=== PATIENT | female | born 1985 | race Caucasian/White ===

== ENCOUNTER → 2019-05-03 | Outpatient (CLI) | payer SELFPAY | PROVIDERS: Family Provider Nurse Practitioner Family; Visit Provider Internal Medicine Hematology & Oncology | DX: Z85.830 Personal history of malignant neoplasm of bone (principal); Z96.652 Presence of left artificial knee joint | CPT/HCPCS: 73552; 73562; 78306; A9561 ==

== ENCOUNTER → 2019-07-06 15:41 | Outpatient (BNVA) | payer MEDICARE, SELFPAY | PROVIDERS: Family Provider Nurse Practitioner Family; Visit Provider Social Worker Clinical | DX: F43.12 Post-traumatic stress disorder, chronic (principal); F33.2 Major depressive disorder, recurrent severe without psychotic features; F41.1 Generalized anxiety disorder | CPT/HCPCS: 90834 ==

== ENCOUNTER → 2019-07-07 12:37 | Outpatient (BNVA) | payer MEDICARE, SELFPAY | PROVIDERS: Family Provider Nurse Practitioner Family; Visit Provider Psychiatry & Neurology Psychiatry | DX: F43.12 Post-traumatic stress disorder, chronic (principal); F33.2 Major depressive disorder, recurrent severe without psychotic features; F41.1 Generalized anxiety disorder | CPT/HCPCS: 99213 ==

== ENCOUNTER → 2019-07-27 13:02 | Outpatient (BNVA) | payer MEDICARE, SELFPAY | PROVIDERS: Family Provider Nurse Practitioner Family; Visit Provider Social Worker Clinical | DX: F43.12 Post-traumatic stress disorder, chronic (principal); F33.2 Major depressive disorder, recurrent severe without psychotic features; F41.1 Generalized anxiety disorder | CPT/HCPCS: 90834 ==

== ENCOUNTER → 2019-08-11 14:55 | Outpatient (BNVA) | payer MEDICARE, SELFPAY | PROVIDERS: Family Provider Nurse Practitioner Family; Visit Provider Social Worker Clinical | DX: F43.12 Post-traumatic stress disorder, chronic (principal); F33.2 Major depressive disorder, recurrent severe without psychotic features; F41.1 Generalized anxiety disorder | CPT/HCPCS: 90834 ==

== ENCOUNTER → 2019-08-17 14:47 | Outpatient (BNVA) | payer MEDICARE, SELFPAY | PROVIDERS: Family Provider Nurse Practitioner Family; Visit Provider Social Worker Clinical | DX: F43.12 Post-traumatic stress disorder, chronic (principal); F33.2 Major depressive disorder, recurrent severe without psychotic features; F41.1 Generalized anxiety disorder; Z63.4 Disappearance and death of family member | CPT/HCPCS: 90834 ==

== ENCOUNTER → 2019-08-24 08:06 | Outpatient (BNVA) | payer MEDICARE, SELFPAY | PROVIDERS: Family Provider Nurse Practitioner Family; Visit Provider Social Worker Clinical | DX: F43.12 Post-traumatic stress disorder, chronic (principal); F33.2 Major depressive disorder, recurrent severe without psychotic features; F41.1 Generalized anxiety disorder; Z63.4 Disappearance and death of family member | CPT/HCPCS: 90834 ==

== ENCOUNTER → 2019-09-07 08:48 | Outpatient (BNVA) | payer MEDICARE, SELFPAY | PROVIDERS: Family Provider Nurse Practitioner Family; Visit Provider Social Worker Clinical | DX: F43.12 Post-traumatic stress disorder, chronic (principal); F33.2 Major depressive disorder, recurrent severe without psychotic features; F41.1 Generalized anxiety disorder; Z63.4 Disappearance and death of family member | CPT/HCPCS: 90834 ==

== ENCOUNTER → 2019-09-15 08:59 | Outpatient (BNVA) | payer MEDICARE, SELFPAY | PROVIDERS: Family Provider Nurse Practitioner Family; Visit Provider Social Worker Clinical | DX: F43.12 Post-traumatic stress disorder, chronic (principal); F33.2 Major depressive disorder, recurrent severe without psychotic features; F41.1 Generalized anxiety disorder; Z63.4 Disappearance and death of family member | CPT/HCPCS: 90834 ==

== ENCOUNTER → 2019-10-28 08:27 | Outpatient (BNVA) | payer MEDICARE, SELFPAY | PROVIDERS: Family Provider Nurse Practitioner Family; Visit Provider Psychiatry & Neurology Psychiatry | DX: F43.12 Post-traumatic stress disorder, chronic (principal); F33.2 Major depressive disorder, recurrent severe without psychotic features; F41.1 Generalized anxiety disorder | CPT/HCPCS: 99213 ==

== ENCOUNTER 2019-11-08 18:12 | Emergency (ER) | payer MEDICARE, SELFPAY ==
[2019-11-08 18:32] VITALS: BMI 47.2
[2019-11-08 18:34] VITALS: BP 129/78; PULSE 85; RESP 16; TEMP 36.8; O2SAT 97
--- NOTE | 2019-11-08 19:28 | ED_ITS ---
HPI - Skin/Abscess/Foreign Bdy General: Chief complaint: Skin/Abscess/Foreign Body Stated complaint: possible abcess on back head Time Seen by Provider: 11/08/19 19:21 History of Present Illness: HPI narrative: Patient is a 34-year-old female comes to the ED with possible abscess on back left region of the neck/head. Patient says she noticed it started about 6 days ago and appeared to be a small infected hair and it was a red bump. Says the last 4 days is gotten more painful tender red and warm. No active draining. No fevers, chills, nausea/vomiting. Patient does have a history of MRSA. Associated symptoms: Deny chills, fever(s), nausea or vomiting Review of Systems Const: Denies: fever(s), chills or fatigue Eyes: Denies: change in vision or eye discomfort ENMT: Denies: throat pain, odynophagia, nasal discharge or nasal congestion Card: Denies: chest pain, palpitations, edema, swelling of feet/ankles, dyspnea on exertion or orthopnea Resp: Denies: dyspnea, productive cough or non-productive cough GI: Denies: abdominal pain, nausea, vomiting, diarrhea, constipation or hematochezia : Denies: flank pain, dysuria or hematuria Musc: Denies: neck pain, back pain or extremity swelling Skin/Breast: Reports: new lesions (Possible abscess on back left side of neck and scalp.); Denies: rash Neuro: Denies: headache(s), numbness in extremities or weakness in extremities [facility] PFSH: Social History Smoking and tobacco status: current every day smoker cigarettes Packs smoked per day: 1 Years cigarettes smoked: 14 Quit status (tobacco): has tried quititng Number of times tried to quit tobacco: 2 Second hand smoke exposure: Yes Smoking risk assessment/counseling performed?: Yes Tobacco counseling given: counseling >3 minutes Female Reproductive History: Date of last menstrual period: 11/02/19 Physical Exam Const: COMMON NORMALS: no acute distress, patient oriented x3 and alert GENERAL APPEARANCE: cooperative and comfortable HENMT: COMMON NORMALS: normocephalic HEAD & SCALP: normocephalic MOUTH: Normal oral and palatal mucosa present THROAT: posterior oropharynx normal and uvula midline Neck/C-Spine: COMMON NORMALS: supple GENERAL: Yes normal visual inspection Resp: COMMON NORMALS: normal respiratory effort, No retractions, No use of accessory muscles and clear to auscultation bilaterally AUSCULTATION: clear to auscultation bilaterally Cardio: COMMON NORMALS: regular rate, regular rhythm, S1 normal heart sound present, S2 normal heart sound present, No gallops present (Cardio), No clicks present (Cardio), No murmurs present (Cardio) and Peripheral pulses 2+ throughout RATE: regular rate RHYTHM: regular rhythm HEART SOUNDS: S1 normal heart sound present and S2 normal heart sound present PERIPHERAL PULSES: Peripheral pulses 2+ throughout GI: COMMON NORMALS: Normal to inspection, nondistended, normoactive bowel sounds present, Soft to palpation, non-tender and no masses PALPATION: Yes Soft to palpation : COMMON NORMALS: Yes no CVA tenderness BLADDER/KIDNEY EXAM: Yes no CVA tenderness Back/Pelvis: COMMON NORMALS: no CVA tenderness Extremity: COMMON NORMALS: normal to inspection Neuro: COMMON NORMALS: patient oriented x3 and moves all extremities SENSORIUM/ORIENTATION: Yes alert Skin: LESIONS: lesion noted Neck/scalp Lesion type: Yes nodule Lesion size (cm): 3 Lesion location: The back left side of neck and scalp. Where the hairline starts. Lesion color: Yes erythematous, Yes red and Yes surrounding erythema Lesion consistency: Yes mobile, Yes fluctuent and Yes firm Lesion surface: Yes dry, Yes raised, No pointed, No draining, Yes shiny and Yes warm Lesion border: Yes indistinct Lesion tenderness: Yes moderate Lesion finding consistent with: Yes other (Abscess with some surrounding cellulitis.) Procedures Abscess I/D Site: neck (left side) Side (if applicable): left Sedation/analgesia: none Local Anesthetic: lidocaine 1% and with epi Amount of anesthesia used (mL): 10 Technique: incised with #11 blade Amount of fluid expressed (mL): 1 Irrigation: Yes (with normal saline) Packing used?: none Course Vital Signs: Vital signs: Vital Signs Temperature 98.2 F 11/08/19 18:34 Pulse Rate 85 11/08/19 18:34 Respiratory Rate 16 11/08/19 18:34 Blood Pressure 129/78 11/08/19 18:34 Pulse Oximetry 97 11/08/19 18:34 MDM - Skin/Abscess/Foreign Bdy MDM Narrative: Medical decision making narrative: Patient is a 34-year-old female comes to the ED with abscess on left posterior neck. There is erythema, warmth surrounding nodule. I&D was performed and patient was put on a prescription of Bactrim. Patient told to follow-up with PCP in 7 to 10 days or to return to ED if symptoms worsen. Patient understood and agreed with plan. Discharge Plan Discharge Patient Disposition: Home, Self-Care Clinical Impression: Abscess Condition: Stable Prescriptions: New sulfamethoxazole-trimethoprim 800-160 mg tablet 1 tab PO BID 7 Days Qty: 14 RF: 0 No Action sertraline 50 mg tablet 150 mg PO DAILY Qty: 270 RF: 0 bupropion HCl [Wellbutrin XL] 300 mg tablet extended release 24 hr 300 mg PO QAM Qty: 90 RF: 0 metformin 500 mg tablet 1,000 mg PO BID RF: 0 omeprazole 40 mg capsule,delayed release(DR/EC) 40 mg PO DAILY RF: 0 glimepiride 1 mg tablet 1 mg PO QAM RF: 0 simvastatin 20 mg tablet 20 mg PO BEDTIME RF: 0 propranolol 60 mg tablet 60 mg PO DAILY RF: 0 lisinopril 10 mg tablet 10 mg PO DAILY RF: 0 ibuprofen 800 mg Tablet 800 mg PO Q6H PRN (Reason: Pain) RF: 0 hydroxyzine HCl 50 mg tablet 100 mg PO BEDTIME RF: 0 prazosin 5 mg capsule 5 mg PO BEDTIME RF: 0 prazosin 2 mg capsule 2 mg PO BEDTIME RF: 0 Latuda 20 mg tablet 20 mg PO BEDTIME RF: 0 Discharge Orders: Discharge Order (Routine); Ordered 11/08/19 Ordered By: Jeff Lopez Referrals: Marcella Jackson NP [Primary Care Provider] - Discharge Diet: Regular Discharge Activity: Resume usual activity Patient Instructions: Abscess Incision and Drainage (ED), Abscess (ED) Activity Restrictions/Additional Instructions: Follow-up with medical provider as directed in 7-10 days. Take medications as prescribed. Return to the ER or your medical provider if condition worsens. Please read and understand discharge instructions. If any questions, please ask. 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
[2019-11-08] MEDS: HYDROcodone-acetaminophen 7.5-325 mg Tablet 1 TAB PO (20:37)
[2019-11-08] MEDS: sulfamethoxazole-trimeth DS 160-800 mg Tablet 1 TAB PO (21:07)
== END 2019-11-08 21:17 | disposition home or self-care (01) ==
PROVIDERS: Emergency Provider Physician Assistant; PCP Nurse Practitioner Family
DX: L02.11 Cutaneous abscess of neck (principal); F17.210 Nicotine dependence, cigarettes, uncomplicated
CPT/HCPCS: 10060; 12345; 99281; 99283; J2001

== ENCOUNTER 2019-11-10 03:53 | Emergency (ER) | payer MEDICARE, SELFPAY ==
[2019-11-10 04:26] VITALS: BP 147/97; PULSE 83; RESP 16; TEMP 36.6; O2SAT 99; BMI 47.2
--- NOTE | 2019-11-10 05:13 | W.ED.SKABFB ---
HPI - Skin/Abscess/Foreign Bdy General: Chief complaint: Skin/Abscess/Foreign Body Stated complaint: abscess on back of head Time Seen by Provider: 11/10/19 04:39 Source: patient Mode of arrival: ambulatory Limitations: no limitations History of Present Illness: HPI narrative: Minoo is a 34-year-old female who comes in complaining of abscess to the back of her left side of her head. Patient was here on the seventh for a similar problem and an I&D was attempted but only a small amount of fluid was expressed. She was placed on Bactrim DS 1 tablet twice daily and told to return if her symptoms worsen. She states the symptoms have worsened and there is more swelling, pain and she has a subjective fever. She denies any nausea or vomiting. Associated symptoms: Deny chills, nausea or vomiting Review of Systems Const: Denies: chills, body aches, fatigue, malaise or diaphoresis Eyes: Denies: change in vision, blurry vision, blind spots, photophobia, eye discharge or eye redness ENMT: Denies: throat pain, odynophagia, hoarseness, swelling of lips/tongue, oral sores, ear or mastoid pain, ear discharge, change in hearing or nasal discharge Card: Denies: chest pain, palpitations, irregular heart rhythm, edema, lightheadedness, syncope, pre-syncope, dyspnea on exertion or orthopnea Resp: Denies: dyspnea, productive cough, non-productive cough, wheezing, hemoptysis or chest congestion GI: Denies: abdominal pain, nausea, vomiting, hematemesis, coffee ground emesis, heartburn, diarrhea, constipation, GI cramping, hematochezia or melena : Denies: flank pain, dysuria, urinary frequency, urinary urgency or hematuria Musc: Denies: neck pain, back pain, extremity pain, extremity swelling, joint pain, joint swelling, joint redness, joint warmth or joint stiffness Skin/Breast: Reports: other (See HPI); Denies: rash, pruritus, erythema, skin tenderness or jaundice Neuro: Denies: headache(s), numbness in extremities, weakness in extremities, sensory changes, lack of coordination, difficulty walking, dizziness, vertigo, confusion, Slurred speech present or seizure-like activity Mike/Lymph: Denies: easy bruising, easy bleeding, petechiae, purpura or enlarged lymph nodes All/Imm: Denies: urticaria, throat swelling, tongue swelling, facial swelling or acute wheezing PFSH ED PFSH: Medical History DM type 2 (diabetes mellitus, type 2) Social History Smoking and tobacco status: current every day smoker cigarettes Packs smoked per day: 1 Years cigarettes smoked: 14 Quit status (tobacco): has tried quititng Number of times tried to quit tobacco: 2 Second hand smoke exposure: Yes Smoking risk assessment/counseling performed?: Yes Tobacco counseling given: counseling >3 minutes Female Reproductive History: Date of last menstrual period: 11/04/19 Physical Exam Const: COMMON NORMALS: no acute distress, patient oriented x3, no limitations, healthy appearing and well nourished GENERAL APPEARANCE: cooperative, well kempt and well developed HENMT: COMMON NORMALS: normocephalic, atraumatic, external ears normal, EAC's normal and Normal external nose present HEAD & SCALP: normal to inspection, normocephalic and atraumatic FACE & SINUS: normal facial exam and face symmetric NOSE: Normal external nose present and Normal nares present EXTERNAL EAR: Yes external ears normal EXTERNAL AUDITORY CANAL: EAC's normal MOUTH: Normal oral and palatal mucosa present, lip normal and tongue normal Eye: COMMON NORMALS: Equal, round and reactive pupils present and conjunctivae normal GENERAL EYE: appearance normal, both eyes and all related structures ALIGNMENT: Yes alignment normal PERIORBITAL: periorbital findings normal EYELID: eyelids normal CONJUNCTIVA: Yes conjunctivae normal SCLERA: sclerae normal PUPIL: Yes Equal, round and reactive pupils present Neck/C-Spine: COMMON NORMALS: full ROM, no lymphadenopathy, supple, no meningeal signs and no JVD GENERAL: Yes normal visual inspection and Yes trachea midline Chest: COMMONS NORMALS: normal inspection of the chest and normal palpation of entire chest wall Resp: COMMON NORMALS: normal respiratory effort, No retractions and No use of accessory muscles EFFORT & INSPECTION: Yes able to speak in complete sentences and Yes symmetric chest movement AUSCULTATION: no crackles, no rales, no rhonchi and no wheezes Cardio: COMMON NORMALS: no JVD, regular rate, regular rhythm, S1 normal heart sound present and S2 normal heart sound present RATE: regular rate RHYTHM: regular rhythm HEART SOUNDS: S1 normal heart sound present, S2 normal heart sound present, no click, no gallops, no murmurs, no rubs and abnormal split S2 GI: COMMON NORMALS: Soft to palpation and No hepatosplenomegaly present PALPATION: Yes Soft to palpation, No Tenderness to palpation present (GI), No Guarding due to palpation present (GI), No Rigid due to palpation, Yes No hepatosplenomegaly present, No Hernia present, No Palpable mass present and No Pulsatile mass present : COMMON NORMALS: Yes no CVA tenderness BLADDER/KIDNEY EXAM: Yes no CVA tenderness EXTERNAL FEMALE EXAM: No Hernia present Back/Pelvis: COMMON NORMALS: no CVA tenderness, thoracic and lumbar spine normal to inspection, no thoracic nor lumbar tenderness and thoraco-lumbar ROM normal Extremity: COMMON NORMALS: normal to inspection, full ROM, capillary refill normal, no joint enlargement, no clubbing, cyanosis or edema and no calf tenderness Neuro: COMMON NORMALS: patient oriented x3, CN's II-XII intact bilaterally, moves all extremities, no focal motor deficits and no sensory deficits noted MENINGEAL SIGNS: Yes no meningeal signs SPEECH: speech normal Psych: COMMON NORMALS: mental status grossly normal, Normal thought process present, cooperative, normal affect, speech normal and activity/motor behavior normal APPEARANCE: Yes well kempt SPEECH: Yes normal speech THOUGHT PROCESS: Normal thought process present Skin: COMMON NORMALS: turgor normal, no jaundice, no petechiae and no mottling NARRATIVE SKIN EXAM: Right parietal/occipital scalp with large area of abscess with overlying erythema. Area is fluctuant and tender to palpation. GENERAL SKIN EXAM: turgor normal Procedures Abscess I/D Site: scalp Side (if applicable): right Local Anesthetic: lidocaine 1% and with epi Amount of anesthesia used (mL): 3 Technique: incised with #11 blade Amount of fluid expressed (mL): 25 Packing used?: iodoform Course Vital Signs: Vital signs: Vital Signs Temperature 97.9 F 11/10/19 04:26 Pulse Rate 83 11/10/19 04:26 Respiratory Rate 16 11/10/19 04:26 Blood Pressure 147/97 11/10/19 04:26 Pulse Oximetry 99 11/10/19 04:26 MDM - Skin/Abscess/Foreign Bdy MDM Narrative: Medical decision making narrative: Patient had a large amount of purulent drainage expressed from the wound. I am concerned with her being a diabetic that this could progress quickly. I have increased her Bactrim to 2 tablets p.o. twice daily and will also start her on Cleocin. This should cover MRSA as well as any other type of infection. There was packing placed in the wound and the patient was advised to return in 24 hours for wound recheck. I reviewed with her at length the signs and symptoms for which to return sooner she states she understands all these and will follow-up as directed or return here if needed. Discharge Plan Discharge Patient Disposition: Home, Self-Care Clinical Impression: Abscess Condition: Stable Prescriptions: New Bactrim DS 800-160 mg tablet 2 tab PO BID 10 Days Qty: 40 RF: 0 Cleocin HCl 150 mg capsule 300 mg PO Q6H 7 Days Qty: 56 RF: 0 Vandiver 5-325 mg tablet 1 tab PO Q6H PRN (Reason: pain) 5 Days Qty: 10 RF: 0 No Action sertraline 50 mg tablet 150 mg PO DAILY Qty: 270 RF: 0 bupropion HCl [Wellbutrin XL] 300 mg tablet extended release 24 hr 300 mg PO QAM Qty: 90 RF: 0 metformin 500 mg tablet 1,000 mg PO BID RF: 0 omeprazole 40 mg capsule,delayed release(DR/EC) 40 mg PO DAILY RF: 0 glimepiride 1 mg tablet 1 mg PO QAM RF: 0 simvastatin 20 mg tablet 20 mg PO BEDTIME RF: 0 propranolol 60 mg tablet 60 mg PO DAILY RF: 0 lisinopril 10 mg tablet 10 mg PO DAILY RF: 0 ibuprofen 800 mg Tablet 800 mg PO Q6H PRN (Reason: Pain) RF: 0 hydroxyzine HCl 50 mg tablet 100 mg PO BEDTIME RF: 0 prazosin 5 mg capsule 5 mg PO BEDTIME RF: 0 prazosin 2 mg capsule 2 mg PO BEDTIME RF: 0 Latuda 20 mg tablet 20 mg PO BEDTIME RF: 0 sulfamethoxazole-trimethoprim 800-160 mg tablet 1 tab PO BID 7 Days Qty: 14 RF: 0 Discharge Orders: Discharge Order (Routine); Ordered 11/10/19 Ordered By: Chasity Boykin Referrals: Marcella Jackson NP [Primary Care Provider] - Chasity Boykin [Emergency Provider] - None (Return to the ER in 24 hours for recheck of your wound.) Discharge Diet: Usual diet Discharge Activity: Increase activity as tolerated Patient Instructions: Abscess (ED) Activity Restrictions/Additional Instructions: Please return to the ER immediately for any of the signs or symptoms listed on your discharge instruction sheets, worsening/changing of your symptoms, you are not getting better as quickly as expected, or for ANY other cause or concerns. Keep your wound clean and dry and take the antibiotics as I have prescribed. Return to the ER in 24 hours for wound check. Return sooner for increased pain, fever, vomiting, or for any other cause for concern. 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
[2019-11-10] MEDS: clindamycin 150 mg Capsule 300 MG PO (06:30)
[2019-11-10] MEDS: HYDROcodone-acetaminophen 5-325 mg Tablet 1 TAB PO (06:30)
[2019-11-10] MEDS: sulfamethoxazole-trimeth DS 160-800 mg Tablet 2 TAB PO (06:30)
[2019-11-10 06:50] VITALS: RESP 18
== END 2019-11-10 06:35 | disposition home or self-care (01) ==
PROVIDERS: Emergency Provider Emergency Medicine; PCP Nurse Practitioner Family
DX: L02.811 Cutaneous abscess of head [any part, except face] (principal); E11.9 Type 2 diabetes mellitus without complications; Z79.84 Long term (current) use of oral hypoglycemic drugs; F17.210 Nicotine dependence, cigarettes, uncomplicated
CPT/HCPCS: 10060; 12345; 99281; 99283

== ENCOUNTER 2019-11-11 06:11 | Emergency (ER) | payer MEDICARE, SELFPAY ==
[2019-11-11 06:14] VITALS: BP 143/84; PULSE 98; RESP 18; TEMP 35.8; O2SAT 100; BMI 47.2
--- NOTE | 2019-11-11 06:28 | PC.NURSE ---
Received patient to ER with complaint of wound recheck. Patient seen here yesterday and had I&D of cyst on the back left of her neck, and was told to return in 24 hours.
--- NOTE | 2019-11-11 06:38 | CTR_ITS ---
PROCEDURE INFORMATION: Exam: CT Neck With Contrast Exam date and time: 11/11/2019 6:47 AM Age: 34 years old Clinical indication: Abscess, cutaneous; Prior surgery; Surgery date: 3-7 days post-operative; Additional info: Abscess, left neck/scalp TECHNIQUE: Imaging protocol: Computed tomography images of the neck with intravenous contrast. Radiation optimization: All CT scans at this facility use at least one of these dose optimization techniques: automated exposure control; mA and/or kV adjustment per patient size (includes targeted exams where dose is matched to clinical indication); or iterative reconstruction. Contrast material: OMNI 300; Contrast volume: 95 ml; Contrast route: INTRAVENOUS (IV); COMPARISON: No relevant prior studies available. 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 Visualized portions of the brain and orbits are normal. Nasopharynx: Prominent adenoids. fossa of Rosenmuller obscured Oropharynx: parapharyngeal space normal. Hypertrophy of the palatine and lingular tonsillar tissues without a visualized abscess. Hypopharynx: Piriform sinus is unremarkable. Larynx: the epiglottis, preepiglottic fat and the aryepiglottic folds are normal. The true cords appear normal. Retropharyngeal space: Unremarkable. Submandibular/Parotid glands: submental and submandibular regions are normal. the carotid and parotid spaces are normal. Thyroid: the thyroid gland, the thoracic inlet, the posterior triangles are normal. Lymph nodes: Numerous small lymph nodes in the various spaces of the neck Trachea: Visualized trachea is unremarkable. Lungs: The lung apices are normal. Bones/joints: No acute osseous abnormality. Soft tissues: Inflammatory changes and skin thickening in the soft tissues of the left neck posteriorly. Apparent incision and drainage. No abscess. Other findings: precervical space is normal. CT/CT neck w con* [id number] IMPRESSION: 1. Hypertrophy of the palatine and lingular tonsillar tissues without a visualized abscess. 2. Inflammatory changes and skin thickening in the soft tissues of the left neck posteriorly. Apparent incision and drainage. No abscess. Radiation Dose CTDIVOL = (mGy): DLP = 830.86 (mGy-cm)
--- NOTE | 2019-11-11 06:45 | W.ED.SKABFB ---
HPI - Skin/Abscess/Foreign Bdy General: Chief complaint: Skin/Abscess/Foreign Body Stated complaint: RECHECK Time Seen by Provider: 11/11/19 06:21 History of Present Illness: HPI narrative: This patient is a 34-year-old diabetic. She presents today for follow-up of an abscess on the left side of her head and neck. She initially presented 2 days ago and an attempt was made to I&D the abscess with very little drainage. She was put on Bactrim. She returned approximately 24 hours ago and another I&D attempt was made with return of large amount of pus. She was put on Cleocin as well as having her Bactrim dose increased to 2 twice daily. She returns today for follow-up as instructed. She does not feel like it is gotten any better. She still has quite a bit of pain and swelling. She feels like the swelling down the left side of her neck is increased. She also feels generally not well and feels like she is having a little trouble thinking. She has not had a fever. She is diabetic but has not checked her blood sugar this morning. She did take her medications. She was put on hydrocodone for home and says that does help when she takes it. She did not take 1 this morning because she had to drive to come here. She has not had previous skin infections similar to this. complaint: abscess/boil Onset (ago): day(s) Location: head and neck Severity: moderate Quality: aching and constant Pain Consistency: constant Relieving factors: medication (Ibuprofen, hydrocodone) Associated symptoms: Deny chills, fever(s), nausea or vomiting Treatments prior to arrival: antibiotic Review of Systems General: Reports: 10 or more systems reviewed and unremarkable except in HPI and below Const: Reports: malaise; Denies: fever(s), chills or fatigue Eyes: Denies: change in vision ENMT: Denies: odynophagia Card: Denies: chest pain or swelling of feet/ankles Resp: Denies: dyspnea, productive cough or non-productive cough GI: Denies: abdominal pain, nausea or vomiting : Denies: flank pain or difficulty voiding Musc: Denies: neck pain or back pain Skin/Breast: Reports: erythema, skin tenderness and skin swelling; Denies: rash Neuro: Denies: headache(s), numbness in extremities or weakness in extremities Mike/Lymph: Denies: easy bruising or easy bleeding [facility] ED PFSH: Medical History (Updated 11/11/19 @ 07:46 by Kate Mars MD) DM type 2 (diabetes mellitus, type 2) Social History Smoking and tobacco status: current every day smoker cigarettes Packs smoked per day: 1 Years cigarettes smoked: 14 Quit status (tobacco): has tried quititng Number of times tried to quit tobacco: 2 Second hand smoke exposure: Yes Smoking risk assessment/counseling performed?: Yes Tobacco counseling given: counseling >3 minutes Female Reproductive History: Date of last menstrual period: 11/04/19 Physical Exam Const: COMMON NORMALS: no acute distress, patient oriented x3, no limitations and alert GENERAL APPEARANCE: cooperative and comfortable HENMT: HEAD & SCALP: normal to inspection FACE & SINUS: normal facial exam Eye: GENERAL EYE: appearance normal, both eyes and all related structures Neck/C-Spine: COMMON NORMALS: supple, no meningeal signs and no JVD GENERAL: Yes other (Approximately 4 cm diameter area of redness behind the left ear but not over the mastoid area. Tenderness and swelling extend down into the left lateral neck. I cannot feel any distinct lymphadenopathy. A wick was in place and was removed and purulent sanguinous drainage came out.) Chest: COMMONS NORMALS: normal inspection of the chest Resp: COMMON NORMALS: normal respiratory effort, No use of accessory muscles and clear to auscultation bilaterally AUSCULTATION: clear to auscultation bilaterally Cardio: COMMON NORMALS: no JVD, regular rate, regular rhythm and No murmurs present (Cardio) RATE: regular rate RHYTHM: regular rhythm GI: COMMON NORMALS: Normal to inspection, nondistended, normoactive bowel sounds present, Soft to palpation and non-tender INSPECTION: Yes normal to inspection AUSCULTATION: Yes normoactive bowel sounds PALPATION: Yes Soft to palpation Back/Pelvis: COMMON NORMALS: thoracic and lumbar spine normal to inspection Extremity: COMMON NORMALS: normal to inspection Neuro: COMMON NORMALS: patient oriented x3, moves all extremities, no focal motor deficits and no sensory deficits noted SENSORIUM/ORIENTATION: Yes alert MENINGEAL SIGNS: Yes no meningeal signs Psych: COMMON NORMALS: mental status grossly normal, cooperative and normal affect Skin: COMMON NORMALS: no rashes or lesions noted and turgor normal GENERAL SKIN EXAM: no rashes or lesions noted and turgor normal Course ED course: CT showed only soft tissue swelling. There is no fluid collection. No extension into the planes in the neck. Patient seems to be overall doing well and was encouraged to continue home therapy. I am to stop the clindamycin and have her continue the Bactrim, 2 tabs twice daily. Vital Signs: Vital signs: Vital Signs Temperature 98.3 F 11/11/19 08:02 Pulse Rate 85 11/11/19 08:02 Respiratory Rate 16 11/11/19 08:02 Blood Pressure 132/74 11/11/19 08:02 Pulse Oximetry 94 11/11/19 08:02 MDM - Skin/Abscess/Foreign Bdy MDM Narrative: Medical decision making narrative: Follow-up for skin infection and abscess in a diabetic. She had an I&D 24 hours ago. She has been on several antibiotics for 24 hours. She feels like it is continuing to worsen and what is concerning is that it seems to be spreading down her neck laterally and anteriorly. Going to get a CT with contrast of her neck to make sure that there is no invasion into any sort of deep space. If that is okay I think she should just continue on antibiotics as she is only been on them for 24 hours at this point and I would not expect to see a significant clinical improvement. Lab Data: Labs: Lab Results 11/11/19 11/11/19 11/11/19 Range/Units 06:54 06:54 06:54 WBC 11.2 H (4.0-10.0) 10^3/ uL RBC 4.83 (4.1-5.3) 10^6/u L Hgb 13.6 (11.5-15.3) g/dL Hct 41.8 (37.0-47.0) % MCV 86.5 (81-99) fL MCH 28.2 (28.0-34.0) pg MCHC 32.5 (30.0-36.0) g/dL RDW 12.8 (12.1-15.1) % Plt Count 163 (130-400) 10^3/c mm MPV 11.9 H (7.4-10.4) fL Neut % (Auto) 62.9 % Lymph % (Auto) 26.9 % [place] % (Auto) 6.9 % Eos % (Auto) 2.4 % Baso % (Auto) 0.4 % Neut # (Auto) 7.00 (1.8-7.7) 10^3/u L Lymph # (Auto) 3.0 (0.8-4.8) 10^3/u L [place] # (Auto) 0.8 (0.2-0.9) 10^3/u L Eos # (Auto) 0.3 (0.0-0.8) 10^3/u L Baso # (Auto) 0.1 (0.0-0.1) 10^3/u L Nucleated RBC % (a uto) 0 % Nucleated RBCs # 0.0 /100WBC Sodium 133 L (136-145) mmol/L Potassium 3.9 (3.5-5.1) mmol/L Chloride 99 (98-107) mmol/L Carbon Dioxide 23 (22-29) mmol/L Anion Gap 14.9 (5-19) BUN 9 (6-20) mg/dL Creatinine 0.5 (0.5-0.9) mg/dL GFR Calculation 142.1 H (90-130) mL/min Glucose 232 H (65-115) mg/dL Calculated Osmolal ity 279 L (285-295) mOsm/k g Calcium 9.2 (8.5-10.5) mg/dL Total Bilirubin 0.2 (0.15-1.2) mg/dL AST 14 (0-32) U/L ALT 21 (0-33) U/L Alkaline Phosphata se 72 (35-105) IU/L Total Protein 7.1 (6.6-8.7) g/dL Albumin 4.1 (3.5-5.2) g/dL Globulin 3.0 (1.3-4.6) g/dL HCG, Qual Negative (Negative) Discharge Plan Discharge Patient Disposition: Home, Self-Care Clinical Impression: Abscess DM type 2 (diabetes mellitus, type 2) Qualifiers: Diabetes mellitus [facility] insulin use: unspecified [facility] insulin use status Diabetes mellitus complication status: with other specified complication Qualified Code(s): E11.69 - Type 2 diabetes mellitus with other specified complication Condition: Stable Prescriptions: Discontinued clindamycin HCl [Cleocin HCl] 150 mg capsule 300 mg PO Q6H 7 Days Qty: 56 RF: 0 No Action sertraline 50 mg tablet 150 mg PO DAILY Qty: 270 RF: 0 bupropion HCl [Wellbutrin XL] 300 mg tablet extended release 24 hr 300 mg PO QAM Qty: 90 RF: 0 metformin 500 mg tablet 1,000 mg PO BID RF: 0 omeprazole 40 mg capsule,delayed release(DR/EC) 40 mg PO DAILY RF: 0 glimepiride 1 mg tablet 1 mg PO QAM RF: 0 simvastatin 20 mg tablet 20 mg PO BEDTIME RF: 0 propranolol 60 mg tablet 60 mg PO DAILY RF: 0 lisinopril 10 mg tablet 10 mg PO DAILY RF: 0 ibuprofen 800 mg Tablet 800 mg PO Q6H PRN (Reason: Pain) RF: 0 hydroxyzine HCl 50 mg tablet 100 mg PO BEDTIME RF: 0 prazosin 5 mg capsule 5 mg PO BEDTIME RF: 0 prazosin 2 mg capsule 2 mg PO BEDTIME RF: 0 Latuda 20 mg tablet 20 mg PO BEDTIME RF: 0 sulfamethoxazole-trimethoprim 800-160 mg tablet 1 tab PO BID 7 Days Qty: 14 RF: 0 Bactrim DS 800-160 mg tablet 2 tab PO BID 10 Days Qty: 40 RF: 0 [place] 5-325 mg tablet 1 tab PO Q6H PRN (Reason: pain) 5 Days Qty: 10 RF: 0 Discharge Orders: Discharge Order (Routine); Ordered 11/11/19 Ordered By: Kate Mars Referrals: Marcella Jackson NP [Primary Care Provider] - Discharge Diet: Usual diet Discharge Activity: Resume usual activity Patient Instructions: Abscess Incision and Drainage (ED) Activity Restrictions/Additional Instructions: Keep the area clean and covered. You may apply warm compresses several times a day. Stop the clindamycin for now. Continue the Bactrim, 2 tablets twice daily. Expect to see some improvement within the next 48 hours. Return to the ED if worsening swelling, fever, pain. Discharge Date/Time: 11/11/19 08:02 Coding Level of Care Code ED Application Support Intern for Pari Fwmirta Exam Comprehensive
[2019-11-11 06:59] LABS: Basophils # 0.1 10^3/uL (0.0-0.1); Basophils % 0.4 %; Eosinophils # 0.3 10^3/uL (0.0-0.8); Eosinophils % 2.4 %; Hematocrit 41.8 % (37.0-47.0); Hemoglobin 13.6 g/dL (11.5-15.3); Lymphocytes % 26.9 %; Mean Corpuscular HGB Conc 32.5 g/dL (30.0-36.0); Mean Corpuscular Hemoglobin 28.2 pg (28.0-34.0); Mean Corpuscular Volume 86.5 fL (81-99); Mean Platelet Volume 11.9 fL (7.4-10.4); Monocytes # 0.8 10^3/uL (0.2-0.9); Monocytes % 6.9 %; Neutrophils % 62.9 %; Nucleated Red Blood Cells % 0 %; Platelet Count 163 10^3/cmm (130-400); Red Blood Count 4.83 10^6/uL (4.1-5.3); Red Cell Distribution Width 12.8 % (12.1-15.1); White Blood Count 11.2 10^3/uL (4.0-10.0)
[2019-11-11 07:08] LABS: HCG, Serum Qual Negative (Negative)
[2019-11-11 07:12] LABS: Alanine Aminotransferase 21 U/L (0-33); Albumin Level 4.1 g/dL (3.5-5.2); Alkaline Phosphatase 72 IU/L (35-105); Anion Gap 14.9 (5-19); Aspartate Amino Transferase 14 U/L (0-32); Blood Urea Nitrogen 9 mg/dL (6-20); Calcium 9.2 mg/dL (8.5-10.5); Carbon Dioxide 23 mmol/L (22-29); Chloride 99 mmol/L (98-107); Glomerular Filtration Rate 142.1 mL/min (90-130); Glucose 232 mg/dL (65-115); Osmolality Calculated 279 mOsm/kg (285-295); Potassium 3.9 mmol/L (3.5-5.1); Sodium 133 mmol/L (136-145); Total Bilirubin 0.2 mg/dL (0.15-1.2); Total Protein 7.1 g/dL (6.6-8.7)
[2019-11-11] MEDS: HYDROcodone-acetaminophen 5-325 mg Tablet 1 TAB (07:52)
[2019-11-11 08:02] VITALS: BP 132/74; PULSE 85; RESP 16; TEMP 36.8; O2SAT 94
== END 2019-11-11 08:02 | disposition home or self-care (01) ==
PROVIDERS: Emergency Provider Emergency Medicine; PCP Nurse Practitioner Family
DX: L02.11 Cutaneous abscess of neck (principal); E11.69 Type 2 diabetes mellitus with other specified complication; F17.210 Nicotine dependence, cigarettes, uncomplicated
CPT/HCPCS: 12345; 70491; 80053; 84703; 85025; 99283; Q9967

== ENCOUNTER 2019-12-03 02:34 | Emergency (ER) | payer MEDICARE, SELFPAY ==
[2019-12-03 02:41] VITALS: BP 134/84; PULSE 71; RESP 18; TEMP 36.3; O2SAT 98; BMI 47.2
--- NOTE | 2019-12-03 02:46 | USR_ITS ---
PROCEDURE INFORMATION: Exam: US Duplex Left Upper Extremity Veins, Limited Exam date and time: 12/03/2019 2:49 AM Age: 34 years old Clinical indication: Pain; Arm, upper; Left; Additional info: Dvt TECHNIQUE: Imaging protocol: Real-time Duplex ultrasound of the Left Upper Extremity with 2-D mcdonough scale, color Doppler flow and spectral waveform analysis with image documentation. Limited exam focused on the left upper extremity veins. COMPARISON: No relevant prior studies available. FINDINGS: Left deep veins: Unremarkable. Axillary and brachial veins are patent throughout without thrombus. Normal Doppler waveforms. Normal compressibility and/or augmentation response. Visualized internal jugular and subclavian veins are patent. Left superficial veins: Unremarkable. Visualized cephalic and basilic veins are patent without thrombus. Soft tissues: Unremarkable. US/[place] [id number] IMPRESSION: No evidence of deep vein thrombosis.
--- NOTE | 2019-12-03 02:49 | ED_ITS ---
HPI - Extremity Problem General: Chief complaint: Extremity Injury, Upper Stated complaint: lower left arm pain Time Seen by Provider: 12/03/19 02:42 Source: patient Mode of arrival: ambulatory Limitations: no limitations History of Present Illness: HPI Narrative: 34-year-old female who woke up 1 hour ago with sharp stabbing pain in her left forearm. States she felt like her muscles are cramping and was concerned she may have a blood clot. Denies any worsening or improving factors. States pain is currently 6 out of 10. Denies any injuries. MD Complaint: extremity pain Onset (ago): hour(s) Pain Consistency: constant Location: left Severity scale (1-10): 6 Quality: stabbing Relieving factors: nothing Exacerbating factors: nothing Associated symptoms: Deny chest pain, fever(s) or rash Review of Systems Const: Denies: fever(s), chills, body aches or change in appetite Eyes: Denies: blurry vision or eye discomfort ENMT: Denies: throat pain or dental pain Card: Denies: chest pain Resp: Denies: dyspnea GI: Denies: abdominal pain, nausea, vomiting or diarrhea : Denies: dysuria Musc: Reports: extremity pain Skin/Breast: Denies: rash Neuro: Denies: headache(s) Psych: Denies: depression Mike/Lymph: Denies: easy bruising All/Imm: Denies: urticaria PFSH ED PFSH: Medical History (Updated 12/03/19 @ 03:56 by Jacob Felton MD) DM type 2 (diabetes mellitus, type 2) Social History Smoking and tobacco status: current every day smoker cigarettes Packs smoked per day: 1 Years cigarettes smoked: 14 Quit status (tobacco): has tried quititng Number of times tried to quit tobacco: 2 Second hand smoke exposure: Yes Smoking risk assessment/counseling performed?: Yes Tobacco counseling given: counseling >3 minutes Female Reproductive History: Date of last menstrual period: 11/03/19 Physical Exam Const: COMMON NORMALS: no acute distress, patient oriented x3 and healthy appearing HENMT: COMMON NORMALS: normocephalic and atraumatic HEAD & SCALP: normocephalic and atraumatic Eye: COMMON NORMALS: Equal, round and reactive pupils present and EOMs intact bilaterally PUPIL: Yes Equal, round and reactive pupils present Neck/C-Spine: COMMON NORMALS: full ROM and supple Chest: COMMONS NORMALS: normal inspection of the chest and normal palpation of entire chest wall Resp: COMMON NORMALS: normal respiratory effort, No retractions, No use of accessory muscles and clear to auscultation bilaterally AUSCULTATION: clear to auscultation bilaterally Cardio: COMMON NORMALS: regular rate, regular rhythm and No murmurs present (Cardio) RATE: regular rate RHYTHM: regular rhythm GI: COMMON NORMALS: Normal to inspection, nondistended, normoactive bowel sounds present, Soft to palpation, non-tender and no masses PALPATION: Yes Soft to palpation Extremity: COMMON NORMALS: normal to inspection and full ROM NARRATIVE EXTREMITY EXAM: slight tenderness over left forearm Neuro: COMMON NORMALS: patient oriented x3, moves all extremities and no focal motor deficits Psych: COMMON NORMALS: mental status grossly normal, Normal thought process present and cooperative THOUGHT PROCESS: Normal thought process present Skin: COMMON NORMALS: no rashes or lesions noted and no wounds GENERAL SKIN EXAM: no rashes or lesions noted Course Vital Signs: Vital signs: Vital Signs Temperature 97.4 F L 12/03/19 02:41 Pulse Rate 71 12/03/19 02:41 Respiratory Rate 18 12/03/19 02:41 Blood Pressure 134/84 12/03/19 02:41 Pulse Oximetry 98 12/03/19 02:41 MDM - Extremity (Nontraumatic) MDM Narrative: Medical decision making narrative: Patient presents with left arm pain that is likely muscular in origin. Patient's ultrasound showed no DVT and she has no signs of bony injury. Patient has no signs of compartment syndrome. Distal pulses and sensation are intact. Patient is to ice will place on Naprosyn and she is stable for discharge. Imaging Data^: us l arm: My impression: no acute abnormality Discharge Plan Discharge Patient Disposition: Home Clinical Impression: Arm pain Qualifiers: Laterality: left Qualified Code(s): M79.602 - Pain in left arm Condition: Stable Prescriptions: New Naprosyn 500 mg tablet 500 mg PO BID PRN (Reason: pain) Qty: 20 RF: 0 No Action sertraline 50 mg tablet 150 mg PO DAILY Qty: 270 RF: 0 bupropion HCl [Wellbutrin XL] 300 mg tablet extended release 24 hr 300 mg PO QAM Qty: 90 RF: 0 metformin 500 mg tablet 1,000 mg PO BID RF: 0 omeprazole 40 mg capsule,delayed release(DR/EC) 40 mg PO DAILY RF: 0 glimepiride 1 mg tablet 1 mg PO QAM RF: 0 simvastatin 20 mg tablet 20 mg PO BEDTIME RF: 0 propranolol 60 mg tablet 60 mg PO DAILY RF: 0 lisinopril 10 mg tablet 10 mg PO DAILY RF: 0 ibuprofen 800 mg Tablet 800 mg PO Q6H PRN (Reason: Pain) RF: 0 hydroxyzine HCl 50 mg tablet 100 mg PO BEDTIME RF: 0 prazosin 5 mg capsule 5 mg PO BEDTIME RF: 0 prazosin 2 mg capsule 2 mg PO BEDTIME RF: 0 Latuda 20 mg tablet 20 mg PO BEDTIME RF: 0 Discharge Orders: Discharge Order (Routine); Ordered 12/03/19 Ordered By: Jacob Felton Referrals: Marcella Jackson, CUSTOMER SUPPORT CONSULTANT [Primary Care Provider] - 1-3 days Discharge Diet: Advance as tolerated Discharge Activity: Resume usual activity Patient Instructions: Musculoskeletal Pain (ED), Muscle Spasm (ED) Coding Level of Care Code ED Political Aide for Chg Fwd Exam Comprehensive
[2019-12-03] MEDS: naproxen 500 mg Tablet PO (02:55)
== END 2019-12-03 04:12 | disposition home or self-care (01) ==
PROVIDERS: Emergency Provider Emergency Medicine; PCP Nurse Practitioner Family
DX: M79.602 Pain in left arm (principal); E11.9 Type 2 diabetes mellitus without complications; F17.210 Nicotine dependence, cigarettes, uncomplicated; Z79.84 Long term (current) use of oral hypoglycemic drugs
CPT/HCPCS: 12345; 93971; 99281; 99283

== ENCOUNTER 2020-05-24 16:27 | Outpatient (CLI) | payer MEDICARE, SELFPAY ==
--- NOTE | 2020-05-24 16:45 | XR_ITS ---
WS: [id number] Right shoulder, 2 views, 05/24/2020 Clinical Data: RIGHT SHOULDER PAIN Comparison: None. Findings: No fractures or dislocations are seen. The AC joint is normal. The adjacent right clavicle, right sca pula and ribs are normal. The soft tissues are unremarkable. XR/XR shoulder RT min 2V* [id number] Impression: Negative right shoulder.
--- NOTE | 2020-05-24 16:45 | XR_ITS ---
WS: [id number] KUB, AP view, 05/24/2020 Clinical Data: DYSURIA Comparison: None. Findings: No abnormal intraabdominal masses or calcifications are seen. There is no dilatated small bowel or ev idence of obstruction. XR/XR KUB [id number] Impression: Negative KUB.
== END 2020-05-24 16:28 | disposition home or self-care (01) ==
PROVIDERS: PCP Nurse Practitioner Family; Visit Provider Nurse Practitioner Family
DX: R39.15 Urgency of urination (principal); R30.0 Dysuria; M25.511 Pain in right shoulder
CPT/HCPCS: 73030; 74018

== ENCOUNTER 2021-02-05 16:55 | Emergency (ER) | payer MEDICARE, SELFPAY ==
[2021-02-05 17:14] VITALS: BP 145/73; PULSE 85; RESP 18; TEMP 36.9; O2SAT 97; BMI 50.2
--- NOTE | 2021-02-05 18:54 | XRR_ITS ---
PROCEDURE INFORMATION: Exam: XR Left Foot Exam date and time: 02/05/2021 6:54 PM Age: 35 years old Clinical indication: Pain; Foot; Left; Additional info: Injury TECHNIQUE: Imaging protocol: XR Left foot. Views: 3 or more views. COMPARISON: MRI Leg w/wo LEFT [id number] 04/13/2019 10:56 AM FINDINGS: Bones/joints: Normal. Soft tissues: Normal. XR/XR foot LT min 3V* [id number] IMPRESSION: No acute findings. Radiation Dose CTDIVOL = (mGy): DLP = (mGy-cm)
[2021-02-05 18:58] VITALS: BP 138/78; PULSE 79; RESP 18; O2SAT 97
--- NOTE | 2021-02-05 18:59 | PC.NURSE ---
pt to xray via w/c
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
[2021-02-05] MEDS: HYDROcodone-acetaminophen 5-325 mg Tablet 1 TAB PO (19:30)
== END 2021-02-05 19:30 | disposition home or self-care (01) ==
PROVIDERS: Emergency Provider Nurse Practitioner Family; PCP Nurse Practitioner Family
DX: S90.32XA Contusion of left foot, initial encounter (principal); Z79.84 Long term (current) use of oral hypoglycemic drugs; E11.9 Type 2 diabetes mellitus without complications; F17.210 Nicotine dependence, cigarettes, uncomplicated; W20.8XXA Other cause of strike by thrown, projected or falling object, initial encounter
CPT/HCPCS: 73630; 99283; E0114

== ENCOUNTER → 2021-05-21 11:18 | Outpatient (BNVA) | payer MEDICARE, SELFPAY | PROVIDERS: PCP Nurse Practitioner Family; Visit Provider Nurse Practitioner | DX: F43.12 Post-traumatic stress disorder, chronic (principal); F41.1 Generalized anxiety disorder; F31.81 Bipolar II disorder; F17.210 Nicotine dependence, cigarettes, uncomplicated | CPT/HCPCS: 99215 ==

== ENCOUNTER 2021-06-03 08:56 | Outpatient (CLI) | payer MEDICARE, SELFPAY ==
--- NOTE | 2021-06-03 09:12 | CT_ITS ---
WS: [id number] CT HEAD NONCONTRAST HISTORY: MIGRAINE WITH AURA TECHNIQUE: Contiguous axial imaging performed through the brain in 2.5 mm imaging. Bone and soft tiss ue windows. Sagittal and coronal reformats reviewed. All CT scans at [facility] use at least one of these dose optimization techniques: automated exposure control; mA and/or kV adjustment per pa tient size (includes targeted exams where dose is matched to clinical indication); or iterative recon struction. DLP: 854.38 mGy.cm COMPARISON: None available. No acute intracranial hemorrhage, midline shift or mass effect. No atrophy or prior infarcts or herniation. There is inferior displacement of cerebellar tonsils by 5.4 mm. Ventricles: Normal size with no hydrocephalus. Paranasal sinuses: Mucoperiosteal thickening in the maxillary sinuses. Mastoid air cells: Well pneumatized. Calvarium and scalp: Skull is intact with no soft tissue edema or swelling. CT/CT head wo con* [id number] IMPRESSION: 1. No acute intracranial hemorrhage or edema. 2. 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 3. No hydrocephalus.
== END 2021-06-03 08:57 | disposition home or self-care (01) ==
LOC: RAD 09:05
PROVIDERS: Visit Provider Nurse Practitioner Family
DX: G43.109 Migraine with aura, not intractable, without status migrainosus (principal)
CPT/HCPCS: 70450

== ENCOUNTER → 2021-06-18 08:26 | Outpatient (BNVA) | payer MEDICARE, SELFPAY | PROVIDERS: Visit Provider Nurse Practitioner | DX: F43.12 Post-traumatic stress disorder, chronic (principal); F41.1 Generalized anxiety disorder; F31.81 Bipolar II disorder | CPT/HCPCS: 99214 ==

== ENCOUNTER → 2021-06-26 09:41 | Outpatient (BNVA) | payer MEDICARE, SELFPAY | PROVIDERS: PCP Nurse Practitioner Family; Referring Provider Nurse Practitioner Family; Visit Provider Specialist | DX: G43.711 Chronic migraine without aura, intractable, with status migrainosus (principal); Q04.8 Other specified congenital malformations of brain; Z85.830 Personal history of malignant neoplasm of bone; F17.210 Nicotine dependence, cigarettes, uncomplicated | CPT/HCPCS: 99204; 99205 ==

== ENCOUNTER → 2021-07-10 09:11 | Outpatient (BNVA) | payer MEDICARE, SELFPAY | PROVIDERS: PCP Nurse Practitioner Family; Visit Provider Nurse Practitioner | DX: F43.12 Post-traumatic stress disorder, chronic (principal); F41.1 Generalized anxiety disorder; F31.81 Bipolar II disorder | CPT/HCPCS: 99214 ==

== ENCOUNTER → 2021-08-16 07:21 | Outpatient (BNVA) | payer MEDICARE, SELFPAY | PROVIDERS: PCP Nurse Practitioner Family; Visit Provider Nurse Practitioner | DX: F43.12 Post-traumatic stress disorder, chronic (principal); F41.1 Generalized anxiety disorder; F31.81 Bipolar II disorder | CPT/HCPCS: 99214 ==

== ENCOUNTER 2022-04-28 19:04 | Emergency (ER) | payer MEDICARE, SELFPAY ==
[2022-04-28 19:09] VITALS: BP 137/89; PULSE 120; RESP 18; TEMP 37.1; O2SAT 98; BMI 47.9
--- NOTE | 2022-04-28 19:37 | ED_ITS ---
HPI - Skin/Abscess/Foreign Bdy General: Chief complaint: Skin/Abscess/Foreign Body Stated complaint: abscess on back Time Seen by Provider: 04/28/22 19:37 History of Present Illness: 36-year-old female comes in today with complaints of area of redness and tenderness to the mid back. Patient was started on cefdinir and reports minimal improvement in the wound. Patient reports no dr lagunas. Patient appears nontoxic. Patient does have a history of diabetes mellitus, major depression, bipolar disorder, and sarcoma of the bone. Review of Systems Skin/Breast: Reports: changing lesions [facility] PFSH: Medical History Bipolar II disorder DM type 2 (diabetes mellitus, type 2) Psychiatric care Social History Smoking and tobacco status: current every day smoker cigarettes Packs smoked per day: 1 Years cigarettes smoked: 14 Quit status (tobacco): has tried quititng Number of times tried to quit tobacco: 2 Second hand smoke exposure: Yes Smoking risk assessment/counseling performed?: Yes Tobacco counseling given: counseling >3 minutes Female Reproductive History: Date of last menstrual period: 02/01/21 Physical Exam Const: COMMON NORMALS: alert HENMT: COMMON NORMALS: normocephalic HEAD & SCALP: normocephalic Neck/C-Spine: COMMON NORMALS: full ROM Resp: COMMON NORMALS: normal respiratory effort Cardio: RATE: tachycardic GI: COMMON NORMALS: Soft to palpation PALPATION: Yes Soft to palpation Extremity: COMMON NORMALS: normal to inspection Neuro: SENSORIUM/ORIENTATION: Yes alert Skin: LESIONS: lesion noted (8 cm area of redness and induration to the mid back. Crusted central lesio) Procedures Abscess I/D Site: back Local Anesthetic: lidocaine 1% Amount of anesthesia used (mL): 10 Technique: incised with #11 blade Amount of fluid expressed (mL): 60 Packing used?: plain (12cm) Complications: pain Course Vital Signs: Vital signs: Vital Signs Temperature 98.8 F 04/28/22 19:09 Pulse Rate 120 H 04/28/22 19:09 Respiratory Rate 16 04/28/22 20:36 Blood Pressure 137/89 04/28/22 19:09 Pulse Oximetry 98 04/28/22 19:09 Oxygen Delivery Me thod 04/28/22 19:09 MDM - Skin/Abscess/Foreign Bdy Medicial Decision Making 36-year-old female comes in today for complaints of increasing redness and tenderness to a lesion to her back. Patient was started on some cefdinir 3 days ago and has reported increasing tenderness and erythema to the wound. Patient appears nontoxic. Palpation of the wound notes some erythema and induration without any palpable crepitus or subcu emphysema. Vital signs are normal except for some elevation in pulse at 120. Differential diagnosis includes but not limited to cellulitis, abscess, necrotizing fasciitis. No signs of serious illness. Incision was made with a moderate to large amount of purulent drainage from site. Patient tolerated well. Patient was given 600 mg of clindamycin IV. Patient was recommended to stop cefdinir and we will put her on oral clindamycin 600 mg 3 times a day for the next 7 days. Reviewed exam and recommendations with patient and post procedure care. Patient reported understanding and agreed to plan. Lab Data 04/28/22 20:32 04/28/22 20:40 Laboratory Results WBC 15.9 10^3/uL (4.0-10.0) H 04/28/22 20:32 Corrected WBC Cancelled 04/28/22 20:00 RBC 5.01 10^6/uL (4.1-5.3) 04/28/22 20:32 Hgb 14.6 g/dL (11.5-15.3) 04/28/22 20:32 Hct 43.8 % (37.0-47.0) 04/28/22 20:32 MCV 87.4 fl (81-99) 04/28/22 20:32 MCH 29.1 pg (28.0-34.0) 04/28/22 20:32 MCHC 33.3 g/dL (30.0-36.0) 04/28/22 20:32 RDW 11.9 % (12.1-15.1) L 04/28/22 20:32 Plt Count 201 10^3/cmm (130-400) 04/28/22 20:32 MPV 11.6 fL (7.4-10.4) H 04/28/22 20:32 Gran % Cancelled 04/28/22 20:00 Neut % (Auto) 70.4 % 04/28/22 20:32 Lymph % (Auto) 19.5 % 04/28/22 20:32 [place] % (Auto) 7.7 % 04/28/22 20:32 Eos % (Auto) 1.3 % 04/28/22 20:32 Baso % (Auto) 0.5 % 04/28/22 20:32 Neut # (Auto) 11.17 10^3/uL (1.8-7.7) H 04/28/22 20:32 Lymph # (Auto) 3.1 10^3/uL (0.8-4.8) 04/28/22 20: [place] # (Auto) 1.2 10^3/uL (0.2-0.9) H 04/28/22 20:32 Eos # (Auto) 0.2 10^3/uL (0.0-0.8) 04/28/22 20: Baso # (Auto) 0.1 10^3/uL (0.0-0.1) 04/28/22 20:32 Absolute Gran (auto) Cancelled 04/28/22 20:00 Nucleated RBC % (auto) 0 % 04/28/22 20: Nucleated RBCs # 0.0 /100WBC 04/28/22 20:32 Sodium 134 mmol/L (136-145) L 04/28/22 20:40 Potassium 4.2 mmol/L (3.5-5.1) 04/28/22 20:40 Chloride 95 mmol/L (98-107) L 04/28/22 20:40 Carbon Dioxide 30 mmol/L (22-29) H 04/28/22 20:40 Anion Gap 13.2 (5-19) 04/28/22 20:40 BUN 5 mg/dL (6-20) L 04/28/22 20:40 Creatinine 0.4 mg/dL (0.5-0.9) L 04/28/22 20:40 GFR Calculation 181.6 mL/min (90-130) H 04/28/22 20:40 Glucose 247 mg/dL (65-115) H 04/28/22 20:40 Calculated Osmolality 284 mOsm/kg (285-295) L 04/28/22 20:40 Lactic Acid Cancelled 04/28/22 20:00 Lactate 0.9 mmol/L (0.5-2.2) 04/28/22 20:40 Calcium 9.3 mg/dL (8.5-10.5) 04/28/22 20:40 Total Bilirubin 0.3 mg/dL (0.15-1.2) 04/28/22 20:40 AST 8 U/L (0-32) 04/28/22 20:40 ALT 12 U/L (0-33) 04/28/22 20:40 Alkaline Phosphatase 85 U/L (35-105) 04/28/22 20:40 C-Reactive Protein 177.6 mg/L (0.0-4.9) H 04/28/22 20:40 Total Protein 7.5 g/dL (6.6-8.7) 04/28/22 20:40 Albumin 3.7 g/dL (3.5-5.2) 04/28/22 20:40 Globulin 3.8 g/dL (1.3-4.6) 04/28/22 20:40 Discharge Plan Discharge Patient Disposition: Home Clinical Impression: Abscess of skin or subcutaneous tissue Qualifiers: Site of cutaneous abscess: trunk Site of cutaneous abscess of trunk: back Qualified Code(s): L02.212 - Cutaneous abscess of back [any part, except buttock] Condition: Stable Prescriptions: New clindamycin HCl 300 mg capsule 600 mg PO TID 7 Days Qty: 42 0RF hydrocodone-acetaminophen 5-325 mg tablet 1 tab PO Q6H PRN (Reason: pain (scale score 7-10)) Qty: 10 0RF No Action glimepiride 1 mg tablet 1 mg PO QAM lisinopril 10 mg tablet 10 mg PO DAILY Naprosyn 500 mg tablet 500 mg PO BID PRN (Reason: pain) Label Comments: pt not taking medical marijuana inhalation Rx Instructions: for Pain multivitamin Tablet 1 tab PO DAILY omeprazole 20 mg capsule,delayed release(DR/EC) 20 mg PO DAILY Qty: 30 2RF prazosin 5 mg capsule 5 mg PO BEDTIME Qty: 30 1RF Rx Instructions: TAKE WITH A 2 MG TO MAKE 7 MG AT BEDTIME prazosin 2 mg capsule 2 mg PO BEDTIME Qty: 30 1RF Rx Instructions: TAKE WITH A 5 MG TO MAKE 7 MG AT BEDTIME Latuda 60 mg tablet 60 mg PO DAILY Qty: 30 2RF Rx Instructions: must administer with food (at least 350 calories) hydroxyzine HCl 50 mg tablet 100 mg PO BEDTIME Qty: 60 2RF Discharge Orders: Discharge ED (Routine); Ordered 04/28/22 Ordered By: Hubert Peguero Discharge Diet: Usual diet Discharge Activity: Increase activity as tolerated Patient Instructions: Abscess Incision and Drainage (DC) Activity Restrictions/Additional Instructions: Follow-up with primary care in 2 to 3 days for recheck. Remove wick in 3 days. Cover wound with dressing while it is draining. Stop cefdinir and start clindamycin 600 mg 3 times a day for the next 7 days. Drink plenty of water with medications. You may need to take antibiotic with food on your stomach. Use acetaminophen and ibuprofen for pain, use hydrocodone for severe pain. Return to ER for worsening symptoms such as high fever greater than 100.4, inability to hold fluids down, or new concerns. Coding Level of Care Code ED Dry Chain Puller for Pari Oliver Exam Comprehensive
[2022-04-28 20:14] VITALS: RESP 16
[2022-04-28] MEDS: ondansetron 2 mg/ML SDV 2 mL 4 MG IVP (20:14)
[2022-04-28] MEDS: sodium chloride 0.9% 500 ML 999 ML IV (20:14)
[2022-04-28] MEDS: morphine 4 mg/mL SDV 1 mL IVP ×2 (20:14→20:36)
[2022-04-28] MEDS: lidocaine 1% INJ 20 mL MDV (mL) INJECTION (20:17)
[2022-04-28] MEDS: clindamycin 600 MG/50 ML PREMIX 100 MG IV (20:24)
[2022-04-28 20:36] VITALS: RESP 16
[2022-04-28 20:39] LABS: Basophils # 0.1 10^3/uL (0.0-0.1); Basophils % 0.5 %; Eosinophils # 0.2 10^3/uL (0.0-0.8); Eosinophils % 1.3 %; Hematocrit 43.8 % (37.0-47.0); Hemoglobin 14.6 g/dL (11.5-15.3); Lymphocytes # 3.1 10^3/uL (0.8-4.8); Lymphocytes % 19.5 %; Mean Corpuscular HGB Conc 33.3 g/dL (30.0-36.0); Mean Corpuscular Hemoglobin 29.1 pg (28.0-34.0); Mean Corpuscular Volume 87.4 fl (81-99); Mean Platelet Volume 11.6 fL (7.4-10.4); Monocytes # 1.2 10^3/uL (0.2-0.9); Monocytes % 7.7 %; Neutrophils # 11.17 10^3/uL (1.8-7.7); Neutrophils % 70.4 %; Nucleated Red Blood Cells % 0 %; Platelet Count 201 10^3/cmm (130-400); Red Blood Count 5.01 10^6/uL (4.1-5.3); Red Cell Distribution Width 11.9 % (12.1-15.1); White Blood Count 15.9 10^3/uL (4.0-10.0)
[2022-04-28 21:06] LABS: Lactate (Lactic Acid level) 0.9 mmol/L (0.5-2.2)
[2022-04-28 21:11] LABS: Alanine Aminotransferase 12 U/L (0-33); Albumin Level 3.7 g/dL (3.5-5.2); Alkaline Phosphatase 85 U/L (35-105); Anion Gap 13.2 (5-19); Aspartate Amino Transferase 8 U/L (0-32); Blood Urea Nitrogen 5 mg/dL (6-20); C Reactive Protein 177.6 mg/L (0.0-4.9); Calcium 9.3 mg/dL (8.5-10.5); Carbon Dioxide 30 mmol/L (22-29); Chloride 95 mmol/L (98-107); Globulin 3.8 g/dL (1.3-4.6); Glomerular Filtration Rate 181.6 mL/min (90-130); Glucose 247 mg/dL (65-115); Osmolality Calculated 284 mOsm/kg (285-295); Potassium 4.2 mmol/L (3.5-5.1); Sodium 134 mmol/L (136-145); Total Bilirubin 0.3 mg/dL (0.15-1.2); Total Protein 7.5 g/dL (6.6-8.7)
[2022-04-28 21:33] VITALS: BP 143/96; PULSE 101; RESP 16; O2SAT 98
[2022-04-28 22:34] LABS: Reflex Lactate Order REFLEX LACTIC ORDERD
== END 2022-04-28 21:35 | disposition home or self-care (01) ==
PROVIDERS: Emergency Provider Nurse Practitioner Family
DX: L02.212 Cutaneous abscess of back [any part, except buttock and flank] (principal); Z79.84 Long term (current) use of oral hypoglycemic drugs; E11.9 Type 2 diabetes mellitus without complications; F17.210 Nicotine dependence, cigarettes, uncomplicated
CPT/HCPCS: 36415; 80053; 83605; 85025; 86140; 96365; 96375; 96376; 99284; J2270; J2405; J3490; J7040

== ENCOUNTER 2022-09-26 10:31 | Outpatient (CLI) | payer MEDICARE, SELFPAY ==
--- NOTE | 2022-09-26 11:58 | US_ITS ---
WS: [id number] Abdomen ultrasound, 09/26/2022 Clinical Data: GENERALIZED ABDOMINAL PAIN Comparison: None. Findings: The pancreas shows no cyst, pseudocyst or evidence of pancreatitis. The liver shows no cysts, masses or dilated intrahepatic ducts. There is dense echotexture consistent with fatty infiltration. There is no significant liver enlargement. The portal vein shows normal aniket w. The gallbladder has no stones or sludge. The wall measures 0.1 cm with no pericholecystic fluid. The common bile duct is 0.6 cm and no intraductal abnormalities are noted. The right kidney is 12.6 cm. No cysts, masses or hydronephrosis is seen. The left kidney is 12.7 cm. No cysts, masses or hydronephrosis is seen. The abdominal aorta is not dilated and the inferior vena cava has normal flow. No vascular abnormalit ies are seen. The spleen measures 11.5 cm and there are no intrasplenic masses or capsular abnormalities. US/US abdomen complete* [id number] Impression: Negative abdomen ultrasound.
== END 2022-09-26 10:32 | disposition home or self-care (01) ==
LOC: RAD 10:36
PROVIDERS: PCP Nurse Practitioner Family; Visit Provider Nurse Practitioner Family
DX: R10.84 Generalized abdominal pain (principal)
CPT/HCPCS: 76700

== ENCOUNTER 2023-04-10 05:40 | Emergency (ER) | payer MEDICARE, SELFPAY ==
[2023-04-10 05:57] VITALS: BP 187/105; PULSE 74; RESP 20; TEMP 36.9; O2SAT 98; BMI 44.3
[2023-04-10 06:00] VITALS: BP 165/119; O2SAT 93
--- NOTE | 2023-04-10 06:01 | ED_ITS ---
HPI - Nausea/Vomiting/Diarrhea 2 General: Chief complaint: Nausea/Vomiting/Diarrhea Stated complaint: n/v Time Seen by Provider: 04/10/23 05:55 Source: patient Mode of arrival: ambulatory History of Present Illness: 37-year-old female presents emergency ro om with persistent nausea and vomiting. She was started on antibiotics last few days for UTI but able to keep them down. She does have a history of diabetes mellitus additionally she is medical marijuana. MD elicited complaint: nausea and vomiting Onset (ago): hour(s) Description of vomiting: watery and bilious Associated nausea: Yes Associated abdominal pain: Yes Location of pain: L flank and R flank Pain consistency: constant Severity: moderate Quality: sharp Exacerbating factors: none Relieving factors: none Associated symtoms: Reports nausea; Denies altered mental status, anxiety, bloating, change in vision, chest pain, cough, diaphoresis, decreased urine output, dizziness, dysuria, epistaxis, fatigue, fecal incontinence, fevers/chills, headache(s), anorexia, malaise, myalgias, numbness, palpitations, rash, short of breath, syncope, tenesmus, tinnitus or weakness Review of Systems 2 Const: Denies: fever(s), chills, fatigue, malaise or diaphoresis Eyes: Denies: change in vision ENMT: Denies: tinnitus or epistaxis Card: Denies: chest pain, palpitations or syncope Resp: Denies: dyspnea GI: Reports: nausea; Denies: abdominal pain, bloating or fecal incontinence : Denies: dysuria, urinary frequency or urinary urgency Musc: Denies: neck pain or back pain Skin/Breast: Denies: rash Neuro: Denies: headache(s) or dizziness Psych: Denies: anxiety PFSH ED 2 PFSH: Medical History Bipolar II disorder DM type 2 (diabetes mellitus, type 2) Social History Smoking and tobacco/nicotine status: current every day tobacco/nicotine user cigarettes Packs smoked per day: 1 Years cigarettes smoked: 14 Quit status (tobacco/nicotine): has tried quititng Number of times tried to quit tobacco: 2 Second hand smoke exposure: Yes Physical Exam 2 Const: COMMON NORMALS: no acute distress EXAM LIMITATIONS: no altered mental status GENERAL APPEARANCE: cooperative and comfortable O RIENTATION/CONSCIOUSNESS: Yes awake, Yes oriented to person, Yes oriented to place and Yes oriented to time HENMT: COMMON NORMALS: normocephalic, atraumatic and hearing grossly normal bilaterally HEAD & SCALP: normocephalic and atraumatic Resp: COMMON NORMALS: normal respiratory effort, No retractions, No use of accessory muscles and clear to auscultation bilaterally AUSCULTATION: clear to auscultation bilaterally Cardio: COMMON NORMALS: regular rate, regular rhythm and No murmurs present (Cardio) RATE: regular rate RHYTHM: regular rhythm GI: COMMON NORMALS: Soft to palpation and No hepatosplenomegaly present A USCULTATION: Yes normoactive bowel sounds PALPATION: Yes Soft to palpation, No Tenderness to palpation present (GI), No Guarding due to palpation present (GI) and Yes No hepatosplenomegaly present Extremity: COMMON NORMALS: normal to inspection, capillary refill normal, no clubbing, cyanosis or edema, no calf tenderness and no pedal edema Neuro: SENSORIUM/ORIENTATION: Yes oriented to person, Yes oriented to place and Yes oriented to time Skin: COMMON NORMALS: no rashes or lesions noted GENERAL SKIN EXAM: no rashes or lesions noted Course 2 Vital Signs: Vital signs: Vital Signs Temperature 98.5 F 04/10/23 05:57 Pulse Rate 74 04/10/23 05:57 Respiratory Rate 20 H 04/10/23 05:57 Blood Pressure 165/119 04/10/23 06:00 Pulse Oximetry 93 04/10/23 07:00 MDM - Nausea/Vomiting/Diarrhea Medical Decision Making Labs reviewed. CT shows no abscess or obstruction. Patient has some leukocytosis that believe that a stress reaction from the vomiting. She is not having a fever. Urine shows 25-40 white blood cells per high-power field. She did respond to Ativan and Haldol. I suspect some of her nausea vomiting is from the medical marijuana use give her olanzapine and Ativan to go home with. Continue the Cipro for now she had the an original UTI diagnosed at an outside facility she was told they did a culture as well encouraged her to follow-up with that doctor to find if that medication needs to be adjusted. Clear liquid diet for 24 to 48 hours and advance as tolerated Medical Records I reviewed the patient's medical records. Lab Data I reviewed the patient's lab results. 04/10/23 06:05 04/10/23 06:05 Laboratory Results WBC 18.63 10^3/uL (3.29-11.43) H 04/10/23 06:05 RBC 5.31 10^6/uL (3.85-5.65) 04/10/23 06:05 Hgb 15.20 g/dL (11.27-16.99) 04/10/23 06:05 Hct 45.6 % (36-47) 04/10/23 06:05 MCV 85.9 fl (85-98) 04/10/23 06:05 MCH 28.6 pg (27-33) 04/10/23 06:05 MCHC 33.3 g/dL (30-55) 04/10/23 06:05 RDW 12.5 % (12.1-15.1) 04/10/23 06:05 Plt Count 152 10^3/cmm (157-399) L 04/10/23 06:05 MPV 11.7 fL (7.4-10.4) H 04/10/23 06:05 Neut % (Auto) 80.2 % 04/10/23 06:05 Lymph % (Auto) 11.4 % 04/10/23 06:05 [place] % (Auto) 7.2 % 04/10/23 06:05 Eos % (Auto) 0.4 % 04/10/23 06:05 Baso % (Auto) 0.3 % 04/10/23 06:05 Neut # (Auto) 14.94 10^3/uL (1.8-7.7) H 04/10/23 06:05 Lymph # (Auto) 2.1 10^3/uL (0.8-4.8) 04/10/23 06:05 [place] # (Auto) 1.3 10^3/uL (0.2-0.9) H 04/10/23 06:05 Eos # (Auto) 0.1 10^3/uL (0.0-0.8) 04/10/23 06:05 Baso # (Auto) 0.1 10^3/uL (0.0-0.1) 04/10/23 06:05 Nucleated RBC % (auto) 0 % 04/10/23 06:05 Nucleated RBCs # 0.0 /100WBC 04/10/23 06:05 Sodium 138 mmol/L (136-145) 04/10/23 06:05 Potassium 3.8 mmol/L (3.5-5.1) 04/10/23 06:05 Chloride 100 mmol/L (98-107) 04/10/23 06:05 Carbon Dioxide 21 mmol/L (22-29) L 04/10/23 06:05 Anion Gap 20.8 (5-19) H 04/10/23 06:05 BUN 7 mg/dL (6-20) 04/10/23 06:05 Creatinine 0.5 mg/dL (0.5-0.9) 04/10/23 06:05 GFR Calculation 139.6 mL/min (90-130) H 04/10/23 06:05 Glucose 319 mg/dL (65-115) H 04/10/23 06:05 Calculated Osmolality 296 mOsm/kg (285-295) H 04/10/23 06:05 Calcium 9.1 mg/dL (8.5-10.5) 04/10/23 06:05 Total Bilirubin 0.7 mg/dL (0.15-1.2) 04/10/23 06:05 AST 9 U/L (0-32) 04/10/23 06:05 ALT 14 U/L (0-33) 04/10/23 06:05 Alkaline Phosphatase 81 U/L (35-105) 04/10/23 06:05 Total Protein 7.4 g/dL (6.6-8.7) 04/10/23 06:05 Albumin 4.0 g/dL (3.5-5.2) 04/10/23 06:05 Globulin 3.4 g/dL (1.3-4.6) 04/10/23 06:05 HCG, Qual Negative (Negative) 04/10/23 06:05 Urine Color Yellow (Yellow) 04/10/23 07:33 Urine Appearance Clear (CLEAR) 04/10/23 07:33 Urine pH 5 (5-7) 04/10/23 07:33 Ur Specific [place] 1.020 (1.005-1.030) 04/10/23 07:33 Urine Protein 1+ (Negative) H 04/10/23 07:33 Urine Glucose (UA) 4+ (Normal) H 04/10/23 07:33 Urine Ketones 3+ (Negative) H 04/10/23 07:33 Urine Blood 2+ (Negative) H 04/10/23 07:33 Urine Nitrate Negative (Negative) 04/10/23 07:33 Urine Bilirubin Neg (Negative) 04/10/23 07:33 Urine Urobilinogen Norm mg/dL (Negative) 04/10/23 07:33 Ur Leukocyte Esterase Negative (Negative) 04/10/23 07:33 Urine RBC 5-10 /hpf (0-2) H 04/10/23 07:33 Urine WBC 25-40 /hpf (0-5) H 04/10/23 07:33 Ur Squamous Epith Cells 0-4 /hpf (0-5) H 04/10/23 07:33 Amorphous Sediment Not Reportable 04/10/23 07:33 Urine Bacteria Trace /hpf (NONE) 04/10/23 07:33 All radiology interpretation(s) finalized by discharge Discharge Plan Discharge Patient Disposition: Home Clinical Impression: Cystitis, Cannabinoid hyperemesis syndrome Condition: Stable Prescriptions: New Ativan 2 mg tablet 2 mg buccal Q6H PRN (Reason: nausea and vomiting) Qty: 14 0RF olanzapine 10 mg tablet 10 mg PO Q8H PRN (Reason: nausea and vommitting) Qty: 10 0RF No Action glimepiride 1 mg tablet 1 mg PO QAM lisinopril 10 mg tablet 10 mg PO DAILY Naprosyn 500 mg tablet 500 mg PO BID PRN (Reason: pain) Patient Comments: pt not taking medical marijuana inhalation Rx Instructions: for Pain multivitamin Tablet 1 tab PO DAILY omeprazole 20 mg capsule,delayed release(DR/EC) 20 mg PO DAILY Qty: 30 2RF prazosin 5 mg capsule 5 mg PO BEDTIME Qty: 30 1RF Rx Instructions: TAKE WITH A 2 MG TO MAKE 7 MG AT BEDTIME prazosin 2 mg capsule 2 mg PO BEDTIME Qty: 30 1RF Rx Instructions: TAKE WITH A 5 MG TO MAKE 7 MG AT BEDTIME Latuda 60 mg tablet 60 mg PO DAILY Qty: 30 2RF Rx Instructions: must administer with food (at least 350 calories) hydroxyzine HCl 50 mg tablet 100 mg PO BEDTIME Qty: 60 2RF hydrocodone-acetaminophen 5-325 mg tablet 1 tab PO Q6H PRN (Reason: pain (scale score 7-10)) Qty: 10 0RF Discharge Orders: Discharge ED (Routine); Ordered 04/10/23 Ordered By: Silverio Dawkins Referrals: Harmony Jerez FNP [Primary Care Provider] - Discharge Diet: Clear Liquid Discharge Activity: Increase activity as tolerated Patient Instructions: Opioid Safety, Pain Management Activity Restrictions/Additional Instructions: Thank you for choosing [facility] for your healthcare needs today. Please realize this is an emergency room and that we are providing you with a medical screening exam and this may not be complete and all inclusive of all the testing and or work up that you may need to determine your ailment or severity of your illness. It is very important that you follow up as instructed or that you return to the Emergency Department should you have concerns or if your condition changes or worsens in any way. You were seen today for persistent nausea and vomiting. Your white count was elevated. Believe it is a stress reaction from the nausea and vomiting. Continue to take the ciprofloxacin, follow-up with primary care provider who initially prescribed it to confirm that the culture showed the infection to be sensitive to the ciprofloxacin. In the emergency room he responded well to Ativan and Haldol for the nausea and vomiting, you can use Ativan buccal (between the cheek and gum) and olanzapine sublingual as needed for persistent nausea and vomiting recheck if you have further problems. Coding Level of Care Code ED Network Admin for Pari Oliver
[2023-04-10 06:09] LABS: Basophils # 0.1 10^3/uL (0.0-0.1); Basophils % 0.3 %; Eosinophils # 0.1 10^3/uL (0.0-0.8); Eosinophils % 0.4 %; Hematocrit 45.6 % (36-47); Lymphocytes # 2.1 10^3/uL (0.8-4.8); Lymphocytes % 11.4 %; Mean Corpuscular HGB Conc 33.3 g/dL (30-55); Mean Corpuscular Hemoglobin 28.6 pg (27-33); Mean Corpuscular Volume 85.9 fl (85-98); Mean Platelet Volume 11.7 fL (7.4-10.4); Monocytes # 1.3 10^3/uL (0.2-0.9); Monocytes % 7.2 %; Neutrophils # 14.94 10^3/uL (1.8-7.7); Neutrophils % 80.2 %; Nucleated Red Blood Cells % 0 %; Platelet Count 152 10^3/cmm (157-399); Red Blood Count 5.31 10^6/uL (3.85-5.65); Red Cell Distribution Width 12.5 % (12.1-15.1); White Blood Count 18.63 10^3/uL (3.29-11.43)
--- NOTE | 2023-04-10 06:26 | CT_ITS ---
WS: [id number] CT ABDOMEN AND PELVIS NONCONTRAST HISTORY: flank pain, bilateral TECHNIQUE: Imaging performed through the abdomen and pelvis. Coronal and sagittal reformats are submi tted. All CT scans at [facility] use at least one of these dose optimization techniques: auto mated exposure control; mA and/or kV adjustment per patient size (includes targeted exams where dose is matched to clinical indication); or iterative reconstruction. DLP: 1387.73 mGy.cm COMPARISON: None available. Lower thorax: No nodules. Normal heart. Small hiatal hernia. Liver: Diffuse mild hepatic steatosis. No bile duct dilatation. Gallbladder: Normal gallbladder. No pericholecystic fluid or cholelithiasis. No gallbladder wall thic kening. Pancreas: Normal size and attenuation. Normal pancreatic duct. No pancreatitis or mass. Spleen: Normal. Adrenal glands: Normal. No mass. Right kidney: Normal size kidney with no mass or hydronephrosis. Left kidney: Normal size kidney with no mass or hydronephrosis. Aorta: Normal abdominal aorta, no aneurysm or atherosclerosis. No free fluid, intraperitoneal air or significant lymphadenopathy. GI tract: Normal noncontrast imaging of the stomach, small bowel and colon. No obstruction or wall th ickening. No appendicitis. There is several appendicoliths present. No adjacent inflammation. Abdominal wall: Negative. No hernia. Pelvis: Negative. Normal uterus and ovaries. Osseous structures: Unremarkable. IMPRESSION: 1. No renal obstruction or calcifications. 2. No appendicitis. Appendicoliths are present. 3. No ascites or adenopathy. 4. Mild hepatic steatosis. 5. No evidence for colitis or GI tract obstruction.
[2023-04-10 06:30] VITALS: O2SAT 95
[2023-04-10 06:31] LABS: Alanine Aminotransferase 14 U/L (0-33); Alkaline Phosphatase 81 U/L (35-105); Anion Gap 20.8 (5-19); Aspartate Amino Transferase 9 U/L (0-32); Blood Urea Nitrogen 7 mg/dL (6-20); Calcium 9.1 mg/dL (8.5-10.5); Carbon Dioxide 21 mmol/L (22-29); Chloride 100 mmol/L (98-107); Globulin 3.4 g/dL (1.3-4.6); Glomerular Filtration Rate 139.6 mL/min (90-130); Glucose 319 mg/dL (65-115); Osmolality Calculated 296 mOsm/kg (285-295); Potassium 3.8 mmol/L (3.5-5.1); Sodium 138 mmol/L (136-145); Total Bilirubin 0.7 mg/dL (0.15-1.2); Total Protein 7.4 g/dL (6.6-8.7)
[2023-04-10 06:37] LABS: HCG, Serum Qual Negative (Negative)
[2023-04-10] MEDS: sodium chloride 0.9% 1,000 ML 999 ML IV (06:45)
[2023-04-10] MEDS: ondansetron 2 mg/ML SDV 2 mL 4 MG IVP (06:45)
[2023-04-10] MEDS: haloperidol inj 5 mg/mL INJ 1 mL 2.5 MG IVP (06:46)
[2023-04-10] MEDS: cefTRIAXone 1,000 MG in sodium chloride 0.9% (plus) 50 ML 100 MG IV (06:58)
[2023-04-10 07:00] VITALS: O2SAT 93
[2023-04-10 08:25] LABS: Add Urine Microscopic? YES; Bilirubin Urine Neg (Negative); Blood Urine 2+ (Negative); Glucose Urine UA 4+ (Normal); Ketones Urine 3+ (Negative); Leukocyte Esterase Urine Negative (Negative); Nitrate Urine Negative (Negative); Protein Urine 1+ (Negative); Urine Appearance Clear (CLEAR); Urine Color Yellow (Yellow); Urobilinogen Urine Norm (Negative); pH Urine 5 (5-7)
[2023-04-10 08:26] LABS: Add Urine Culture? Yes; Bacteria Urine TRACE /hpf; Squamous Epithelial Cell Urine 0-4 /hpf (0-5); WBC Urine 25-40 /hpf (0-5)
== END 2023-04-10 09:40 | disposition home or self-care (01) ==
PROVIDERS: Emergency Provider Family Medicine; PCP Nurse Practitioner Family
DX: R11.2 Nausea with vomiting, unspecified; F12.90 Cannabis use, unspecified, uncomplicated; K76.0 Fatty (change of) liver, not elsewhere classified; N30.90 Cystitis, unspecified without hematuria
CPT/HCPCS: 36415; 74176; 80053; 81001; 84703; 85025; 87040; 87086; 96365; 96366; 96375; 99285; J0696; J1630; J2405; J7030

== ENCOUNTER 2023-05-22 13:28 | Emergency (ER) | payer MEDICARE, SELFPAY ==
[2023-05-22 13:34] VITALS: BP 163/107; PULSE 76; RESP 16; TEMP 36.9; O2SAT 99
[2023-05-22 13:54] VITALS: BP 156/106; PULSE 78; RESP 14; O2SAT 97
--- NOTE | 2023-05-22 13:55 | PC.NURSE ---
pts bp is 156/106. pt states it normally runs high and she's supposed to take bp meds, but doesn't.
--- NOTE | 2023-05-22 13:56 | W.ED.SKABFB ---
HPI - Skin/Abscess/Foreign Bdy General: Chief complaint: Skin/Abscess/Foreign Body Stated complaint: swollen face Time Seen by Provider: 05/22/23 13:44 Source: patient Mode of arrival: ambulatory Limitations: no limitations History of Present Illness: This patient presents to the emergency department because of swelling to the right side of her face. She states that approximately 2 to 3 days ago there was a typical pustule to the right side of her face that spontaneously drained within 24 hours but then seemed to have increasing redness and swelling to the right side of her face subsequently. She denies any fevers or chills or other constitutional complaints. She is able to eat and drink normally. She is here because of the swelling and concerned it might get worse. She does not have a history of MRSA or other chronic skin infections. Location: face Associated symptoms: Deny chills, fever(s), nausea or vomiting Treatments prior to arrival: none Review of Systems Const: Denies: fever(s) or chills Eyes: Denies: change in vision ENMT: Denies: throat pain, odynophagia, nasal discharge or nasal congestion Resp: Denies: dyspnea, productive cough or non-productive cough GI: Denies: nausea, vomiting or diarrhea Musc: Denies: neck pain, back pain, extremity pain or extremity swelling Neuro: Denies: numbness in extremities or weakness in extremities Mike/Lymph: Denies: easy bruising or easy bleeding [facility] ED PFSH: Medical History Bipolar II disorder DM type 2 (diabetes mellitus, type 2) Social History Smoking and tobacco/nicotine status: current every day tobacco/nicotine user cigarettes Packs smoked per day: 1 Years cigarettes smoked: 14 Quit status (tobacco/nicotine): has tried quititng Number of times tried to quit tobacco: 2 Second hand smoke exposure: Yes Physical Exam Narrative: EXAM NARRATIVE: Patient is alert no acute distress. She makes good eye contact and answers questions in a goal-directed fashion. Const: COMMON NORMALS: no acute distress and patient oriented x3 GENERAL APPEARANCE: cooperative and comfortable NUTRITIONAL APPEARANCE: overweight HENMT: COMMON NORMALS: normocephalic, atraumatic, Normal nasal mucous membranes and turbinates present, moist oral mucous membranes and oropharynx normal HEAD & SCALP: normocephalic and atraumatic FACE & SINUS: Facial tenderness on exam of face and sinuses and other (She has normal range of motion of her mandible. No extraocular motion impi); no crepitus FACE & SINUS IMAGES: 1. A crusted papule to the right labial margin with some swelling to the right malar region. NOSE: Normal nasal mucous membranes and turbinates present MOUTH: Normal oral and palatal mucosa present and tongue normal OTHER: She has both upper and lower dentures Eye: COMMON NORMALS: Equal, round and reactive pupils present, EOMs intact bilaterally and conjunctivae normal CONJUNCTIVA: Yes conjunctivae normal PUPIL: Yes Equal, round and reactive pupils present Neck/C-Spine: COMMON NORMALS: full ROM, no lymphadenopathy and supple Resp: COMMON NORMALS: normal respiratory effort and clear to auscultation bilaterally AUSCULTATION: clear to auscultation bilaterally Cardio: COMMON NORMALS: regular rate, regular rhythm and Peripheral pulses 2+ throughout RATE: regular rate RHYTHM: regular rhythm PERIPHERAL PULSES: Peripheral pulses 2+ throughout Back/Pelvis: COMMON NORMALS: thoraco-lumbar ROM normal Extremity: COMMON NORMALS: normal to inspection and full ROM Neuro: COMMON NORMALS: patient oriented x3, moves all extremities, no focal motor deficits and no sensory deficits noted CRANIAL NERVES: Yes CN normal except as noted Psych: COMMON NORMALS: mental status grossly normal Skin: GENERAL SKIN EXAM: erythema (Right face), no fluctuance and induration Course Vital Signs: Vital signs: Vital Signs Temperature 98.4 F 05/22/23 13:34 Pulse Rate 78 05/22/23 13:54 Respiratory Rate 14 05/22/23 13:54 Blood Pressure 156/106 05/22/23 13:54 Pulse Oximetry 97 05/22/23 13:54 Oxygen Delivery Me thod Room Air 05/22/23 13:54 MDM - Skin/Abscess/Foreign Bdy Medicial Decision Making This patient presented to the emergency department because of concerns about right facial swelling. The onset of symptoms was associated after spontaneous drainage of a pustule to the right face. No prior history of significant or recurrent skin infections such as MRSA etc. She states over the ensuing 24 to 36 hours she has had increasing swelling of the right face. Emanation revealed faint erythema of the skin of the right face with some induration and tenderness and swelling of the infra orbital region and in the malar region of the right face. She had normal range of motion at the mandible. Intraoral examination revealed both upper and lower dentures. There is no evidence of tongue or subungual abnormality. She had good range of motion at the cervical spine. There was no cervical adenopathy. Findings are consistent with a facial cellulitis without any evidence of sepsis, significant deep space infections etc. at this time. Discussed treatment plan and expected course and reasons to return with the patient and spouse in detail. Will start her on oral Augmentin give her a injection of Decadron for anti-inflammatory effect and enumerated reasons to return to the emergency department. Differential Diagnosis Likely cellulitis No radiology studies performed this visit Discharge Plan Discharge Patient Disposition: Home Clinical Impression: Cellulitis Qualifiers: Site of cellulitis: face Qualified Code(s): L03.211 - Cellulitis of face Condition: Stable Prescriptions: New amoxicillin-pot clavulanate [Augmentin] 500-125 mg tablet 1 tab PO TID Qty: 21 0RF No Action glimepiride 1 mg tablet 1 mg PO QAM lisinopril 10 mg tablet 10 mg PO DAILY Naprosyn 500 mg tablet 500 mg PO BID PRN (Reason: pain) Patient Comments: pt not taking medical marijuana inhalation Rx Instructions: for Pain multivitamin Tablet 1 tab PO DAILY omeprazole 20 mg capsule,delayed release(DR/EC) 20 mg PO DAILY Qty: 30 2RF prazosin 5 mg capsule 5 mg PO BEDTIME Qty: 30 1RF Rx Instructions: TAKE WITH A 2 MG TO MAKE 7 MG AT BEDTIME prazosin 2 mg capsule 2 mg PO BEDTIME Qty: 30 1RF Rx Instructions: TAKE WITH A 5 MG TO MAKE 7 MG AT BEDTIME Latuda 60 mg tablet 60 mg PO DAILY Qty: 30 2RF Rx Instructions: must administer with food (at least 350 calories) hydroxyzine HCl 50 mg tablet 100 mg PO BEDTIME Qty: 60 2RF hydrocodone-acetaminophen 5-325 mg tablet 1 tab PO Q6H PRN (Reason: pain (scale score 7-10)) Qty: 10 0RF Ativan 2 mg tablet 2 mg buccal Q6H PRN (Reason: nausea and vomiting) Qty: 14 0RF olanzapine 10 mg tablet 10 mg PO Q8H PRN (Reason: nausea and vommitting) Qty: 10 0RF Discharge Orders: Discharge ED (Routine); Ordered 05/22/23 Ordered By: Leonid Sigala Referrals: Harmony Jerez FNP [Primary Care Provider] - Discharge Diet: Usual diet Discharge Activity: Increase activity as tolerated Patient Instructions: Opioid Safety, Pain Management Activity Restrictions/Additional Instructions: As we discussed you have an infection in the soft tissue of your right side of your face. We have provided a prescription for antibiotics you should take as prescribed for the next 7 days. Use warm compresses to your face as well. If it anytime you are having worsening symptoms, cannot tolerate your medications, increasing swelling, fevers etc. return to this or the nearest emergency department for reevaluation. Coding Level of Care Code ED Farrowing Worker for Pari Oliver
[2023-05-22] MEDS: dexamethasone 10 mg/mL INJ IM (14:16)
[2023-05-22 14:20] VITALS: BP 156/106; PULSE 78; RESP 14; TEMP 36.9; O2SAT 97
== END 2023-05-22 14:21 | disposition home or self-care (01) ==
PROVIDERS: Emergency Provider Emergency Medicine; PCP Nurse Practitioner Family
DX: L03.211 Cellulitis of face (principal); Z79.84 Long term (current) use of oral hypoglycemic drugs; E11.9 Type 2 diabetes mellitus without complications; Z72.0 Tobacco use
CPT/HCPCS: 96372; 99284; J1100

== ENCOUNTER 2023-07-15 16:11 | Observation (INO) | payer MEDICARE, SELFPAY ==
[2023-07-15 16:15] VITALS: BP 186/126; PULSE 75; RESP 16; TEMP 36.6; O2SAT 99
[2023-07-15 17:17] VITALS: BP 189/100
--- NOTE | 2023-07-15 17:18 | PC.NURSE ---
pt states supposed to take bp meds but does not. pt has blood tinged vomit noted in triage
[2023-07-15 17:24] LABS: Add Urine Microscopic? NO; Charge for UA Resulting for Rev
[2023-07-15 17:27] LABS: Urine Appearance Clear (CLEAR); Urine Color Yellow (Yellow); pH Urine 6 (5-7)
[2023-07-15 17:28] LABS: Bilirubin Urine Neg (Negative); Blood Urine Neg (Negative); Glucose Urine UA Norm (Normal); Ketones Urine Negative (Negative); Leukocyte Esterase Urine Negative (Negative); Nitrate Urine Negative (Negative); Protein Urine Neg (Negative); Urobilinogen Urine Norm (Negative)
[2023-07-15 17:29] LABS: HCG Qualitative Urine. Negative (Negative)
[2023-07-15 18:25] LABS: Basophils # 0.1 10^3/uL (0.0-0.1); Basophils % 0.4 %; Eosinophils # 0.1 10^3/uL (0.0-0.8); Eosinophils % 0.6 %; Hematocrit 47.4 % (36-47); Lymphocytes # 2.9 10^3/uL (0.8-4.8); Lymphocytes % 15.5 %; Mean Corpuscular HGB Conc 33.3 g/dL (30-55); Mean Platelet Volume 11.9 fL (7.4-10.4); Monocytes # 0.9 10^3/uL (0.2-0.9); Monocytes % 4.7 %; Neutrophils # 14.58 10^3/uL (1.8-7.7); Neutrophils % 78.4 %; Nucleated Red Blood Cells % 0 %; Platelet Count 194 10^3/cmm (157-399); Red Blood Count 5.45 10^6/uL (3.85-5.65); Red Cell Distribution Width 12.5 % (12.1-15.1); White Blood Count 18.62 10^3/uL (3.29-11.43)
[2023-07-15 18:49] LABS: Alanine Aminotransferase 20 U/L (0-33); Albumin Level 4.6 g/dL (3.5-5.2); Alkaline Phosphatase 80 U/L (35-105); Aspartate Amino Transferase 14 U/L (0-32); Blood Urea Nitrogen 8 mg/dL (6-20); Calcium 9.4 mg/dL (8.5-10.5); Carbon Dioxide 20 mmol/L (22-29); Chloride 101 mmol/L (98-107); Creatinine Clr Calc Pharmacy 275.1818; Globulin 2.7 g/dL (1.3-4.6); Glomerular Filtration Rate 179.6 mL/min (90-130); Glucose 269 mg/dL (65-115); Lipase 42 U/L (13-60); Osmolality Calculated 296 mOsm/kg (285-295); Sodium 139 mmol/L (136-145); Total Bilirubin 0.4 mg/dL (0.15-1.2); Total Protein 7.3 g/dL (6.6-8.7)
[2023-07-15] MEDS: sodium chloride 0.9% 1,000 ML 999 ML IV (19:11)
[2023-07-15] MEDS: ondansetron 2 mg/ML SDV 2 mL 8 MG IVP ×3 (19:12→23:15)
[2023-07-15 19:13] LABS: Anion Gap 22.3 (5-19); Potassium 4.3 mmol/L (3.5-5.1)
--- NOTE | 2023-07-15 19:22 | CTR_ITS ---
PROCEDURE INFORMATION: Exam: CT Abdomen And Pelvis With Contrast Exam date and time: 07/15/2023 8:16 PM Age: 38 years old Clinical indication: Vomiting; Abdominal pain; Generalized; Additional info: Abd pain, n/v TECHNIQUE: Imaging protocol: Computed tomography of the abdomen and pelvis with contrast. Radiation optimization: All CT scans at this facility use at least one of these dose optimization techniques: automated exposure control; mA and/or kV adjustment per patient size (includes targeted exams where dose is matched to clinical indication); or iterative reconstruction. Contrast material: OMNI 350; Contrast volume: 100 ml; Contrast route: INTRAVENOUS (IV); COMPARISON: CT kidney stone [id number] 04/10/2023 7:04 AM RADIATION DOSE METRICS: Total DLP (mGy-cm): 1386.03 FINDINGS: Liver: Normal. No mass. Gallbladder and bile ducts: Normal. No calcified stones. No ductal dilation. Pancreas: Normal. No ductal dilation. Spleen: Normal. No splenomegaly. Adrenal glands: Normal. No mass. Kidneys and ureters: Normal. No hydronephrosis. Stomach and bowel: Unremarkable. No obstruction. No mucosal thickening. Appendix: Appendicolith at the base of the appendix which is dilated and fluid filled with mucosal thickening. Intraperitoneal space: Unremarkable. No free air. No significant fluid collection. Vasculature: Unremarkable. No abdominal aortic aneurysm. Lymph nodes: Unremarkable. No enlarged lymph nodes. Urinary bladder: Unremarkable as visualized. Reproductive: Unremarkable as visualized. Bones/joints: No acute fracture. Soft tissues: Unremarkable. CT/CT abdomen pelvis w con* [id number] IMPRESSION: Acute appendicitis.
[2023-07-15] MEDS: metoclopramide 5 mg/mL SDV 2 mL 10 MG IVP (19:59)
--- NOTE | 2023-07-15 19:59 | ED_ITS ---
HPI - Nausea/Vomiting/Diarrhea 2 General: Chief complaint: Nausea/Vomiting/Diarrhea Stated complaint: n/v Time Seen by Provider: 07/15/23 18:57 History of Present Illness: Patient presents to the ER with complaints of severe nausea and vomiting for about the last 24 hours. Patient is also having some right upper quadrant abdominal pain. Patient says she vomited least 80 times. Patient does have some chills but denies any fever or diarrhea. Patient says she has had this 1 other time before but does not remember what it was. Patient denies any abdominal surgeries. Review of Systems 2 General: Reports: 10 or more systems reviewed and unremarkable except in HPI and below PFSH ED 2 PFSH: Medical History Bipolar II disorder DM type 2 (diabetes mellitus, type 2) Social History Smoking and tobacco/nicotine status: current every day tobacco/nicotine user cigarettes Packs smoked per day: 1 Years cigarettes smoked: 14 Quit status (tobacco/nicotine): has tried quititng Number of times tried to quit tobacco: 2 Second hand smoke exposure: Yes Female Reproductive History: Date of last menstrual period: 06/24/23 Physical Exam 2 Const: COMMON NORMALS: no acute distress, average body habitus, patient oriented x3, no limitations, healthy appearing, alert and well nourished HENMT: COMMON NORMALS: normocephalic, atraumatic, hearing grossly normal bilaterally, external ears normal, Normal external nose present, moist oral mucous membranes and oropharynx normal HEAD & SCALP: normocephalic and atraumatic NOSE: Normal external nose present EXTERNAL EAR: Yes external ears normal Neck/C-Spine: COMMON NORMALS: no JVD Chest: COMMONS NORMALS: normal inspection of the chest and normal palpation of entire chest wall Resp: COMMON NORMALS: normal respiratory effort, No retractions, No use of accessory muscles and clear to auscultation bilaterally AUSCULTATION: clear to auscultation bilaterally Cardio: COMMON NORMALS: no JVD, regular rate, regular rhythm, S1 normal heart sound present, S2 normal heart sound present, No gallops present (Cardio), No clicks present (Cardio), No murmurs present (Cardio) and No rub (Cardio) R ATE: regular rate RHYTHM: regular rhythm HEART SOUNDS: S1 normal heart sound present and S2 normal heart sound present GI: COMMON NORMALS: Normal to inspection, nondistended, normoactive bowel sounds present, Soft to palpation, No hepatosplenomegaly present and no masses; negative for non-tender (Mildly tender to palpate) PALPATION: Yes Soft to palpation and Yes No hepatosplenomegaly present Neuro: COMMON NORMALS: patient oriented x3 SENSORIUM/ORIENTATION: Yes alert Course 2 Vital Signs: Vital signs: Vital Signs Temperature 98 F 07/15/23 16:15 Pulse Rate 86 07/15/23 21:08 Respiratory Rate 20 H 07/15/23 21:08 Blood Pressure 180/86 07/15/23 21:08 Pulse Oximetry 96 07/15/23 21:08 Oxygen Delivery Me thod Room Air 07/15/23 16:15 MDM - Nausea/Vomiting/Diarrhea Medical Decision Making Patient had lab work which revealed a white count of 18.62, abdominal pelvic contrast CT showed acute appendicitis. These results was discussed with Dr. Bush who says we are to admit her and start her on Zosyn as needed pain medicine and Zofran n.p.o. after midnight and 125 cc normal saline per hour. Differential Diagnosis Likely gastroenteritis; Unlikely traveler's diarrhea, food poisoning, clostridium difficile infection, drug-induced nausea and vomiting or dehydration Medical Records I reviewed the patient's medical records. Lab Data I reviewed the patient's lab results. 07/15/23 18:18 07/15/23 18:18 Radiology Impressions Abdomen/Pelvis CT 07/15/23 19:22 IMPRESSION: Acute appendicitis. ADDENDUM: 07/15/23 2100 Findings were discussed with José Sullivan at 07/15/2023 8:58 PM CDT. Laboratory Results WBC 18.62 10^3/uL (3.29-11.43) H 07/15/23 18:18 RBC 5.45 10^6/uL (3.85-5.65) 07/15/23 18:18 Hgb 15.80 g/dL (11.27-16.99) 07/15/23 18:18 Hct 47.4 % (36-47) H 07/15/23 18:18 MCV 87.0 fl (85-98) 07/15/23 18:18 MCH 29.0 pg (27-33) 07/15/23 18:18 MCHC 33.3 g/dL (30-55) 07/15/23 18:18 RDW 12.5 % (12.1-15.1) 07/15/23 18:18 Plt Count 194 10^3/cmm (157-399) 07/15/23 18:18 MPV 11.9 fL (7.4-10.4) H 07/15/23 18:18 Neut % (Auto) 78.4 % 07/15/23 18:18 Lymph % (Auto) 15.5 % 07/15/23 18:18 [place] % (Auto) 4.7 % 07/15/23 18:18 Eos % (Auto) 0.6 % 07/15/23 18:18 Baso % (Auto) 0.4 % 07/15/23 18:18 Neut # (Auto) 14.58 10^3/uL (1.8-7.7) H 07/15/23 18:18 Lymph # (Auto) 2.9 10^3/uL (0.8-4.8) 07/15/23 18:18 [place] # (Auto) 0.9 10^3/uL (0.2-0.9) 07/15/23 18:18 Eos # (Auto) 0.1 10^3/uL (0.0-0.8) 07/15/23 18:18 Baso # (Auto) 0.1 10^3/uL (0.0-0.1) 07/15/23 18:18 Nucleated RBC % (auto) 0 % 07/15/23 18:18 Nucleated RBCs # 0.0 /100WBC 07/15/23 18:18 Sodium 139 mmol/L (136-145) 07/15/23 18:18 Potassium 4.3 mmol/L (3.5-5.1) 07/15/23 18:18 Chloride 101 mmol/L (98-107) 07/15/23 18:18 Carbon Dioxide 20 mmol/L (22-29) L 07/15/23 18:18 Anion Gap 22.3 (5-19) H 07/15/23 18:18 BUN 8 mg/dL (6-20) 07/15/23 18:18 Creatinine 0.4 mg/dL (0.5-0.9) L 07/15/23 18:18 GFR Calculation 179.6 mL/min (90-130) H 07/15/23 18:18 Glucose 269 mg/dL (65-115) H 07/15/23 18:18 Calculated Osmolality 296 mOsm/kg (285-295) H 07/15/23 18:18 Calcium 9.4 mg/dL (8.5-10.5) 07/15/23 18:18 Total Bilirubin 0.4 mg/dL (0.15-1.2) 07/15/23 18:18 AST 14 U/L (0-32) 07/15/23 18:18 ALT 20 U/L (0-33) 07/15/23 18:18 Alkaline Phosphatase 80 U/L (35-105) 07/15/23 18:18 Total Protein 7.3 g/dL (6.6-8.7) 07/15/23 18:18 Albumin 4.6 g/dL (3.5-5.2) 07/15/23 18:18 Globulin 2.7 g/dL (1.3-4.6) 07/15/23 18:18 Lipase 42 U/L (13-60) 07/15/23 18:18 HCG, Qual Negative (Negative) 07/15/23 17:19 Urine Color Yellow (Yellow) 07/15/23 17:19 Urine Appearance Clear (CLEAR) 07/15/23 17:19 Urine pH 6 (5-7) 07/15/23 17:19 Ur Specific [place] 1.020 (1.005-1.030) 07/15/23 17:19 Urine Protein Neg (Negative) 07/15/23 17:19 Urine Glucose (UA) Norm (Normal) 07/15/23 17:19 Urine Ketones Negative (Negative) 07/15/23 17:19 Urine Blood Neg (Negative) 07/15/23 17:19 Urine Nitrate Negative (Negative) 07/15/23 17:19 Urine Bilirubin Neg (Negative) 07/15/23 17:19 Urine Urobilinogen Norm mg/dL (Negative) 07/15/23 17:19 Ur Leukocyte Esterase Negative (Negative) 07/15/23 17:19 Urine Opiates Screen Negative ng/mL (Negative) 07/15/23 17:19 Ur Barbiturates Screen Negative ng/mL (Negative) 07/15/23 17:19 Ur Phencyclidine Scrn Negative ng/mL (Negative) 07/15/23 17:19 Ur Amphetamines Screen Negative ng/mL (Negative) 07/15/23 17:19 U Benzodiazepines Scrn Negative ng/mL (Negative) 07/15/23 17:19 Urine Cocaine Screen Negative ng/mL (Negative) 07/15/23 17:19 U Marijuana (THC) Screen Positive ng/mL (Negative) H 07/15/23 17:19 All radiology interpretation(s) finalized by discharge Discharge Plan Discharge Patient Disposition: Admitted As Inpatient Clinical Impression: Acute appendicitis Qualifiers: Acute appendicitis type: with localized peritonitis Appendicitis gangrene presence: without gangrene Appendicitis perforation presence: without perforation Appendicitis abscess presence: without abscess Qualified Code(s): K 35.30 - Acute appendicitis with localized peritonitis, without perforation or gangrene Nausea & vomiting Qualifiers: Vomiting type: unspecified Qualified Code(s): R11.2 - Nausea with vomiting, unspecified Condition: Stable Coding Level of Care Code ED Signal Repairer for Pari Oliver
[2023-07-15] MEDS: iohexol 350 mg/mL 500 mL Btl (per mL) IV (20:15)
[2023-07-15 20:42] LABS: Amphetamines Screen Urine Negative (Negative); Barbiturates Screen Urine Negative (Negative); Benzodiazepines Screen Urine Negative (Negative); Cocaine Screen Urine Negative (Negative); Opiate Screen Urine Negative (Negative); PCP Screen Urine Negative (Negative); THC Screen Urine Positive (Negative)
[2023-07-15] MEDS: haloperidol inj 5 mg/mL INJ 1 mL 2 MG IVP (20:43)
[2023-07-15 21:08] VITALS: BP 180/86; PULSE 86; RESP 20; O2SAT 96
[2023-07-15 21:19] VITALS: RESP 18
[2023-07-15] MEDS: morphine 4 mg/mL SDV 1 mL IVP (21:19)
[2023-07-15] MEDS: famotidine 20 mg/2 mL INJ 40 MG IVP (21:19)
[2023-07-15] MEDS: piperacillin-tazobactam 3.375 GM in sodium chloride 0.9% (plus) 50 ML IV (21:19)
--- NOTE | 2023-07-15 22:11 | PC.NURSE ---
Report was called to LEOPOLDO Greene on Med-Surg. All questions and concerns were addressed at time of report.
[2023-07-15] MEDS: sodium chloride 0.9% 1,000 ML 125 ML IV (22:14)
[2023-07-15 22:38] VITALS: BMI 42.3
--- NOTE | 2023-07-15 23:46 | PC.NURSE ---
Nurse did med rec. at bedside during admission and pt stated they have not taken any of their medications but still has the prescriptions for them. Nurse will consult with med rec nurse in the morning.
[2023-07-16] VITALS (18 sets, daily range): BP systolic 108–176; BP diastolic 63–112; PULSE 69–110; RESP 16–18; TEMP 36.1–37.2; O2SAT 93–98; BMI 42.3
[2023-07-16] MEDS: metoclopramide 5 mg/mL SDV 2 mL IVP (00:23)
[2023-07-16] MEDS: nicotine 21 mg Patch 1 PATCH TRANSDERMA (00:24)
[2023-07-16] MEDS: morphine 4 mg/mL SDV 1 mL IVP ×2 (02:07→23:07)
[2023-07-16] MEDS: piperacillin-tazobactam 3.375 GM in sodium chloride 0.9% (plus) 50 ML IV ×3 (03:15→17:35)
[2023-07-16] MEDS: sodium chloride 0.9% 1,000 ML 125 ML IV (05:00)
--- NOTE | 2023-07-16 06:51 | ANES.PREANE2 ---
Pre-Anesthetic Assessment Height/Weight: Height 1.75 m Weight 130.181 kg Temp Pulse Resp BP Pulse Ox O2 Del Method 98.2 F 81 16 145/82 97 Room Air 07/16/23 06:28 07/16/23 06:28 07/16/23 06:28 07/16/23 06:28 07/16/23 06:28 07/15/23 22:38 Operation Date: 07/16/23 07:00 Proposed Procedures p Laparoscopic Appendectomy(Not Applicable) - Jaylan Bush DO Familial anesthetic complications: None Was Beta Tayla taken within 24 hours: N/A Was Clonidine taken within 24 hours: N/A Last intake: Intake Last Liquid Date 07/15/23 Last Liquid Time 23:00 Last Solid Date 07/15/23 Last Solid Time 19:00 Social Alcohol and Tobacco Vapes, Marijuana, encouraged smoking cessation Exam alert, oriented x 3, clear to auscultation bilaterally and regular rate & rhythm Airway Mallampati: Class III Dentition: other (no top teeth, my bottom teeth are very bad ) CV/HEM Hypertension Metabolic Diabetes Mellitus and Morbid Obesity Neuropsych minimal tonsillar ectopia - asymptomatic, no need for treatment Anesthetic Plan ASA status: 3 Anesthesia: General Risk of > 500 ml blood loss (7ml/kg in children): No Medications/Allergies Home Medications Medication Instructions Recorded Confirmed Last Taken Type glimepiride 1 mg tablet 1 mg PO QAM 07/07/19 07/16/23 9 Months Ago History ~10/15/22 lisinopril 10 mg tablet 10 mg PO DAILY 07/07/19 07/16/23 9 Months Ago History ~10/15/22 medical marijuana 1 dose inhalation DAILY 05/21/21 07/16/23 07/15/23 History naproxen 500 mg tablet (Naprosyn) 500 mg PO BID PRN pain 05/21/21 07/16/23 9 Months Ago History ~10/15/22 multivitamin 1 tab PO DAILY 06/17/21 07/16/23 9 Months Ago History ~10/15/22 hydroxyzine HCl 50 mg tablet 100 mg (2 x 50 mg) PO BEDTIME 08/16/21 07/16/23 9 Months Ago Rx sleep #60 tabs ~10/15/22 lurasidone 60 mg tablet (Latuda) 60 mg PO DAILY #30 tabs 08/16/21 07/16/23 9 Months Ago Rx ~10/15/22 omeprazole 20 mg capsule,delayed 20 mg PO DAILY #30 caps 08/16/21 07/16/23 9 Months Ago Rx release ~10/15/22 prazosin 2 mg capsule 2 mg PO BEDTIME #30 caps 08/16/21 07/16/23 9 Months Ago Rx ~10/15/22 prazosin 5 mg capsule 5 mg PO BEDTIME #30 caps 08/16/21 07/16/23 9 Months Ago Rx ~10/15/22 hydrocodone 5 mg-acetaminophen 325 1 tab PO Q6H PRN pain (scale score 04/28/22 07/16/23 9 Months Ago Rx mg tablet 7-10) #10 tabs ~10/15/22 lorazepam 2 mg tablet (Ativan) 2 mg buccal Q6H PRN nausea and 04/10/23 07/16/23 9 Months Ago Rx vomiting #14 tabs ~10/15/22 olanzapine 10 mg tablet 10 mg PO Q8H PRN nausea and 04/10/23 07/16/23 9 Months Ago Rx vommitting #10 tabs ~10/15/22 ibuprofen 200 mg tablet 800 mg PO Q6H PRN Pain 07/16/23 07/16/23 07/15/23 History ondansetron HCl 4 mg tablet 4 mg PO Q6H PRN Nausea And Vomiting 07/16/23 07/16/23 07/15/23 History Allergies Allergy/AdvReac Type Severity Reaction Status Date / Time sumatriptan [From Imitrex] Allergy Severe Throat Verified 07/16/23 06:44 swells shut trazodone AdvReac Severe Psychosis Verified 07/16/23 06:44 doxycycline AdvReac Intermediate Rash Verified 07/16/23 06:44 verapamil AdvReac Intermediate Rash Verified 07/16/23 06:44 Current Medications Generic Name Dose Route Start Last Admin Trade Name Freq PRN Reason Stop Dose Admin Piperacillin Sod/Tazobactam 50 mls @ 100 mls/hr 07/15/23 21:15 07/16/23 03:41 Sod 3.375 gm/ Sodium Chloride IV Infused Q6H ROXY Infusion Protocol Sodium Chloride 1,000 mls @ 125 mls/hr 07/15/23 21:15 07/16/23 05:00 Sodium Chloride 0.9% IV 125 mls/hr .Q8H ROXY Administration Morphine Sulfate 4 mg 07/15/23 21:04 07/16/23 02:07 Morphine 4 Mg/Ml Sdv 1 Ml IVP 4 mg Q4H PRN Administration pain Nicotine 1 patch 07/16/23 00:13 07/16/23 00:24 Nicotine 21 Mg Patch TRANSDERMA 1 patch DAILY ROXY Administration Ondansetron HCl 8 mg 07/15/23 21:04 07/15/23 23:15 Ondansetron 2 Mg/Ml Sdv 2 Ml IVP 8 mg Q6H PRN Administration NAUSEA AND VOMITING PFSH Anesthesia Medical History Bipolar II disorder DM type 2 (diabetes mellitus, type 2) Social History Smoking and tobacco/nicotine status: current every day tobacco/nicotine user cigarettes Packs smoked per day: 1 Years cigarettes smoked: 14 Quit status (tobacco/nicotine): has tried quititng Number of times tried to quit tobacco: 2 Second hand smoke exposure: Yes Female Reproductive History Date of last menstrual period: 06/24/23 Data Anesthesia 07/15/23 18:18 07/15/23 18:18 Short CBC 07/15/23 Range/Units 18:18 WBC 18.62 H (3.29-11.43) 10^3/uL Hgb 15.80 (11.27-16.99) g/dL Hct 47.4 H (36-47) % MCV 87.0 (85-98) fl Plt Count 194 (157-399) 10^3/cmm Neut % (Auto) 78.4 % Neut # (Auto) 14.58 H (1.8-7.7) 10^3/uL BMP 07/15/23 18:18 Sodium 139 Potassium 4.3 Chloride 101 Carbon Dioxide 20 L BUN 8 Creatinine 0.4 L Glucose 269 H Calcium 9.4 Liver Function 07/15/23 Range/Units 18:18 Total Bilirubin 0.4 (0.15-1.2) mg/dL AST 14 (0-32) U/L ALT 20 (0-33) U/L Alkaline Phosphatase 80 (35-105) U/L Albumin 4.6 (3.5-5.2) g/dL Urine 07/15/23 Range/Units 17:19 Urine Color Yellow (Yellow) Urine Appearance Clear (CLEAR) Urine pH 6 (5-7) Ur Specific [place] 1.020 (1.005-1.030) Urine Protein Neg (Negative) Urine Glucose (UA) Norm (Normal) Urine Ketones Negative (Negative) Urine Nitrate Negative (Negative) Urine Bilirubin Neg (Negative) Ur Leukocyte Esterase Negative (Negative) Cardiac Studies: No Data to Display
[2023-07-16] MEDS: ondansetron 2 mg/ML SDV 2 mL 4 MG IVP (06:52)
[2023-07-16] MEDS: scopolamine 1.5 Patch 1 PATCH TRANSDERMA (06:52)
[2023-07-16] MEDS: sodium chloride 0.9% 1,000 ML 30 ML IV (06:53)
--- NOTE | 2023-07-16 06:57 | P.HP_ITS ---
Providers/Chief Complaint 2 Admitting Physician: Jaylan Bush DO Primary Care Provider: FRANCISCO JAVIER Quintanilla Chief Complaint: n/v History of Present Illness Minoo Mosqueda is a 38 year old female who presented to the hospital with right lower quadrant abdominal pain for 1 day. Palpation makes pain worse. Nothing makes pain better. The pain does not radiate. She denies any nausea or vomiting. Denies any fever or chills. CT shows acute appendicitis. Review of Systems 2 General: Reports: 10 or more systems reviewed and unremarkable except in HPI and below Medications/Allergies Home Medications Medication Instructions Recorded Confirmed Last Taken Type glimepiride 1 mg tablet 1 mg PO QAM 07/07/19 07/16/23 9 Months Ago History ~10/15/22 lisinopril 10 mg tablet 10 mg PO DAILY 07/07/19 07/16/23 9 Months Ago History ~10/15/22 medical marijuana 1 dose inhalation DAILY 05/21/21 07/16/23 07/15/23 History naproxen 500 mg tablet (Naprosyn) 500 mg PO BID PRN pain 05/21/21 07/16/23 9 Months Ago History ~10/15/22 multivitamin 1 tab PO DAILY 06/17/21 07/16/23 9 Months Ago History ~10/15/22 hydroxyzine HCl 50 mg tablet 100 mg (2 x 50 mg) PO BEDTIME 08/16/21 07/16/23 9 Months Ago Rx sleep #60 tabs ~10/15/22 lurasidone 60 mg tablet (Latuda) 60 mg PO DAILY #30 tabs 08/16/21 07/16/23 9 Months Ago Rx ~10/15/22 omeprazole 20 mg capsule,delayed 20 mg PO DAILY #30 caps 08/16/21 07/16/23 9 Months Ago Rx release ~10/15/22 prazosin 2 mg capsule 2 mg PO BEDTIME #30 caps 08/16/21 07/16/23 9 Months Ago Rx ~10/15/22 prazosin 5 mg capsule 5 mg PO BEDTIME #30 caps 08/16/21 07/16/23 9 Months Ago Rx ~10/15/22 hydrocodone 5 mg-acetaminophen 325 1 tab PO Q6H PRN pain (scale score 04/28/22 07/16/23 9 Months Ago Rx mg tablet 7-10) #10 tabs ~10/15/22 lorazepam 2 mg tablet (Ativan) 2 mg buccal Q6H PRN nausea and 04/10/23 07/16/23 9 Months Ago Rx vomiting #14 tabs ~10/15/22 olanzapine 10 mg tablet 10 mg PO Q8H PRN nausea and 04/10/23 07/16/23 9 Months Ago Rx vommitting #10 tabs ~10/15/22 ibuprofen 200 mg tablet 800 mg PO Q6H PRN Pain 07/16/23 07/16/23 07/15/23 History ondansetron HCl 4 mg tablet 4 mg PO Q6H PRN Nausea And Vomiting 07/16/23 07/16/23 07/15/23 History Allergies Allergy/AdvReac Type Severity Reaction Status Date / Time sumatriptan [From Imitrex] Allergy Severe Throat Verified 07/16/23 06:44 swells shut trazodone AdvReac Severe Psychosis Verified 07/16/23 06:44 doxycycline AdvReac Intermediate Rash Verified 07/16/23 06:44 verapamil AdvReac Intermediate Rash Verified 07/16/23 06:44 PFSH Acute 2 PFSH: Medical History Bipolar II disorder DM type 2 (diabetes mellitus, type 2) Social History Smoking and tobacco/nicotine status: current every day tobacco/nicotine user cigarettes Packs smoked per day: 1 Years cigarettes smoked: 14 Quit status (tobacco/nicotine): has tried quititng Number of times tried to quit tobacco: 2 Second hand smoke exposure: Yes Female Reproductive History: Date of last menstrual period: 06/24/23 Vitals/I&O/Wt Last Vital Signs Temp 98.2 F 07/16/23 06:28 Pulse 81 07/16/23 06:28 Resp 16 07/16/23 06:28 BP 145/82 07/16/23 06:28 Pulse Ox 97 07/16/23 06:28 O2 Del Method Room Air 07/15/23 22:38 07/15/23 07/15/23 07/16/23 14:59 22:59 06:59 Intake Total 1050 / 1050 895.833 / 1945.833 Balance 1050 / 1050 895.833 / 1945.833 Weight last 48 hrs Weight 287 lb Weight 287 lb Weight 280 lb Physical Exam 2 Narrative: General : Patient is well developed , no acute distress, oriented x3 Head : Normal cephalic, a-traumatic. Ears : Pinnae and external canal are normal. Hearing is normal. Eyes : PERRLA, Sclera and injection are normal. No conjunctival discharge. Nose : Mucous membranes are without erythema. Throat : buccal mucosa is normal, gums are without significant recession or hypertrophy. Lungs : Equal chest rise bilaterally, no use of accessory muscles, trachea is midline. Cor : Rate and rhythm are normal. Abdomen : Soft, ND, tender right lower quadrant, no g/r/m Extremities : No edema, no cyanosis or clubbing, dorsalis pedis pulses are present bilaterally, non-tender to palpation of calves. Upper extremities are normal bilaterally. Back : non-tender to palpation, no CVA tenderness. Neuro : CN II - XII intact, Upper and lower extremities have equal and full strength Data 07/15/23 18:18 07/15/23 18:18 A&P Assessment and plan (1) Acute appendicitis: Qualifiers: Acute appendicitis type: with localized peritonitis Appendicitis abscess presence: without abscess Appendicitis gangrene presence: without gangrene Appendicitis perforation presence: without perforation Qualified Code(s): K35.30 - Acute appendicitis with localized peritonitis, without perforation or gangrene Plan Laparoscopic Appendectomy The risks and benefits of the procedure, including but not limited to, bleeding, infection, scar, numbness, pain, damage to surrounding structures, conversion to an open procedure, were explained to the patient. He is understanding of the risks and wishes to proceed. Attestations 2 Medical Necessity Statement*: Patient requires a least 1 night in the hospital for IV antibiotics Coding Level of Care Code Acute Code for [facility] F[facility] Diagnoses Acute appendicitis K35.30 Acute appendicitis type: with localized peritonitis Appendicitis abscess presence: without abscess Appendicitis gangrene presence: without gangrene Appendicitis perforation presence: without perforation
[2023-07-16 07:26] LABS: Glucose Point of Care 318 mg/dL (70-110)
[2023-07-16] MEDS: lidocaine-epi 2% PF 1:200,000 20 mL SDV XX (07:40)
[2023-07-16] MEDS: fentaNYL 50 mcg/mL INJ 2mL IVP ×2 (08:10→08:20)
--- NOTE | 2023-07-16 08:35 | ANE.PACU2 ---
Inpatient post-anesthesia follow up: Airway intact: Yes Vital signs: Temperature 99.0 F Pulse Rate 89 Respiratory Rate 17 Blood Pressure 143/83 Pulse Oximetry 96 Oxygen Delivery Me thod Room Air Oxygen Flow Rate Fraction of Inspir ed Oxygen Hydration adequate: Yes Nausea and vomiting: No Pain level: 1 Mental status: Baseline
[2023-07-16] MEDS: lisinopril 10 mg Tablet PO (09:35)
[2023-07-16 11:59] LABS: Glucose Point of Care 211 mg/dL (70-110)
[2023-07-16 11:59] LABS: Glucose Point of Care 196 mg/dL (70-110)
[2023-07-16] MEDS: HYDROcodone-acetaminophen 7.5-325 mg Tablet 1 TAB PO ×3 (12:00→21:42)
[2023-07-16] MEDS: hyDROXYzine 25 mg Capsule 100 MG PO (21:43)
[2023-07-16] MEDS: ondansetron 2 mg/ML SDV 2 mL 8 MG IVP (23:07)
[2023-07-17 01:22] VITALS: BP 110/64; PULSE 77; RESP 16; TEMP 36.9; O2SAT 94
[2023-07-17] MEDS: piperacillin-tazobactam 3.375 GM in sodium chloride 0.9% (plus) 50 ML IV (01:50)
[2023-07-17] MEDS: HYDROcodone-acetaminophen 7.5-325 mg Tablet 1 TAB PO ×2 (03:05→07:07)
[2023-07-17 04:00] VITALS: BP 104/63; PULSE 78; RESP 15; TEMP 36.4; O2SAT 92
[2023-07-17 05:48] VITALS: BMI 43.1
--- NOTE | 2023-07-17 06:57 | PM.DCS ---
Discharge Providers Date of Admission: 07/15/23 21:43 Date of Discharge: July 17, 2023 Attending Provider at Admission: Jaylan Bush DO Attending Provider at Discharge: Jaylan Bush DO Primary Care Provider: FRANCISCO JAVIER Quintanilla Diagnoses at Discharge Discharge Diagnosis (1) Acute appendicitis: Status: Acute Qualifiers: Acute appendicitis type: with localized peritonitis Appendicitis abscess presence: without abscess Appendicitis gangrene presence: without gangrene Appendicitis perforation presence: without perforation Qualified Code(s): K35.30 - Acute appendicitis with localized peritonitis, without perforation or gangrene Reason for Visit Reason for Visit: n/v Hospital Course Hospital Course This very pleasant 38-year-old female presenting to the hospital with abdominal pain. She was diagnosed with acute appendicitis. She underwent laparoscopic appendectomy and was discharged home in good condition Physical Exam Narrative: General : Patient is well developed , no acute distress, oriented x3 Head : Normal cephalic, a-traumatic. Ears : Pinnae and external canal are normal. Hearing is normal. Eyes : PERRLA, Sclera and injection are normal. No conjunctival discharge. Nose : Mucous membranes are without erythema. Throat : buccal mucosa is normal, gums are without significant recession or hypertrophy. Lungs : Equal chest rise bilaterally, no use of accessory muscles, trachea is midline. Cor : Rate and rhythm are normal. Abdomen : Soft, ND, appropriately tender, no g/r/m Extremities : No edema, no cyanosis or clubbing, dorsalis pedis pulses are present bilaterally, non-tender to palpation of calves. Upper extremities are normal bilaterally. Back : non-tender to palpation, no CVA tenderness. Neuro : CN II - XII intact, Upper and lower extremities have equal and full strength Discharge Data Studies Completed and Pending Completed Studies During Hospitalization Category Date Time Status CT abdomen pelvis w con* [id number] Stat Cat Scan 07/15/23 19:22 Completed Pending at discharge Category Date Time Status Pathology: Surgical [PTH] Routine Pth 07/16/23 07:51 Received Radiology Impressions Abdomen/Pelvis CT 07/15/23 19:22 IMPRESSION: Acute appendicitis. ADDENDUM: 07/15/23 2100 Findings were discussed with José Sullivan at 07/15/2023 8:58 PM CDT. Laboratory Results WBC 18.62 10^3/uL (3.29-11.43) H 07/15/23 18:18 RBC 5.45 10^6/uL (3.85-5.65) 07/15/23 18:18 Hgb 15.80 g/dL (11.27-16.99) 07/15/23 18:18 Hct 47.4 % (36-47) H 07/15/23 18:18 MCV 87.0 fl (85-98) 07/15/23 18:18 MCH 29.0 pg (27-33) 07/15/23 18:18 MCHC 33.3 g/dL (30-55) 07/15/23 18:18 RDW 12.5 % (12.1-15.1) 07/15/23 18:18 Plt Count 194 10^3/cmm (157-399) 07/15/23 18:18 MPV 11.9 fL (7.4-10.4) H 07/15/23 18:18 Neut % (Auto) 78.4 % 07/15/23 18:18 Lymph % (Auto) 15.5 % 07/15/23 18:18 [place] % (Auto) 4.7 % 07/15/23 18:18 Eos % (Auto) 0.6 % 07/15/23 18:18 Baso % (Auto) 0.4 % 07/15/23 18:18 Neut # (Auto) 14.58 10^3/uL (1.8-7.7) H 07/15/23 18:18 Lymph # (Auto) 2.9 10^3/uL (0.8-4.8) 07/15/23 18:18 [place] # (Auto) 0.9 10^3/uL (0.2-0.9) 07/15/23 18:18 Eos # (Auto) 0.1 10^3/uL (0.0-0.8) 07/15/23 18:18 Baso # (Auto) 0.1 10^3/uL (0.0-0.1) 07/15/23 18:18 Nucleated RBC % (auto) 0 % 07/15/23 18:18 Nucleated RBCs # 0.0 /100WBC 07/15/23 18:18 Sodium 139 mmol/L (136-145) 07/15/23 18:18 Potassium 4.3 mmol/L (3.5-5.1) 07/15/23 18:18 Chloride 101 mmol/L (98-107) 07/15/23 18:18 Carbon Dioxide 20 mmol/L (22-29) L 07/15/23 18:18 Anion Gap 22.3 (5-19) H 07/15/23 18:18 BUN 8 mg/dL (6-20) 07/15/23 18:18 Creatinine 0.4 mg/dL (0.5-0.9) L 07/15/23 18:18 GFR Calculation 179.6 mL/min (90-130) H 07/15/23 18:18 Glucose 269 mg/dL (65-115) H 07/15/23 18:18 POC Glucose 211 mg/dL (70-110) H 07/16/23 08:38 Calculated Osmolality 296 mOsm/kg (285-295) H 07/15/23 18:18 Calcium 9.4 mg/dL (8.5-10.5) 07/15/23 18:18 Total Bilirubin 0.4 mg/dL (0.15-1.2) 07/15/23 18:18 AST 14 U/L (0-32) 07/15/23 18:18 ALT 20 U/L (0-33) 07/15/23 18:18 Alkaline Phosphatase 80 U/L (35-105) 07/15/23 18:18 Total Protein 7.3 g/dL (6.6-8.7) 07/15/23 18:18 Albumin 4.6 g/dL (3.5-5.2) 07/15/23 18:18 Globulin 2.7 g/dL (1.3-4.6) 07/15/23 18:18 Lipase 42 U/L (13-60) 07/15/23 18:18 HCG, Qual Negative (Negative) 07/15/23 17:19 Urine Color Yellow (Yellow) 07/15/23 17:19 Urine Appearance Clear (CLEAR) 07/15/23 17:19 Urine pH 6 (5-7) 07/15/23 17:19 Ur Specific [place] 1.020 (1.005-1.030) 07/15/23 17:19 Urine Protein Neg (Negative) 07/15/23 17:19 Urine Glucose (UA) Norm (Normal) 07/15/23 17:19 Urine Ketones Negative (Negative) 07/15/23 17:19 Urine Blood Neg (Negative) 07/15/23 17:19 Urine Nitrate Negative (Negative) 07/15/23 17:19 Urine Bilirubin Neg (Negative) 07/15/23 17:19 Urine Urobilinogen Norm mg/dL (Negative) 07/15/23 17:19 Ur Leukocyte Esterase Negative (Negative) 07/15/23 17:19 Urine Opiates Screen Negative ng/mL (Negative) 07/15/23 17:19 Ur Barbiturates Screen Negative ng/mL (Negative) 07/15/23 17:19 Ur Phencyclidine Scrn Negative ng/mL (Negative) 07/15/23 17:19 Ur Amphetamines Screen Negative ng/mL (Negative) 07/15/23 17:19 U Benzodiazepines Scrn Negative ng/mL (Negative) 07/15/23 17:19 Urine Cocaine Screen Negative ng/mL (Negative) 07/15/23 17:19 U Marijuana (THC) Screen Positive ng/mL (Negative) H 07/15/23 17:19 Procedures Performed Laparoscopic appendectomy Vitals Last Vital Signs Temp 97.5 F L 07/17/23 04:00 Pulse 78 07/17/23 04:00 Resp 15 07/17/23 04:00 BP 104/63 07/17/23 04:00 Pulse Ox 92 07/17/23 04:00 O2 Del Method Room Air 07/17/23 04:00 Discharge Plan Discharge Patient Disposition: Home Condition: Stable Prescriptions: New amoxicillin-pot clavulanate 875-125 mg tablet 1 tab PO BID Qty: 14 0RF Colace 100 mg capsule 100 mg PO BID Qty: 14 0RF hydrocodone-acetaminophen 7.5-325 mg tablet 1 tab PO Q6H PRN (Reason: pain) Qty: 20 0RF Continued glimepiride 1 mg tablet 1 mg PO QAM lisinopril 10 mg tablet 10 mg PO DAILY Naprosyn 500 mg tablet 500 mg PO BID PRN (Reason: pain) Patient Comments: pt not taking medical marijuana 1 dose inhalation DAILY Rx Instructions: for Pain multivitamin Tablet 1 tab PO DAILY omeprazole 20 mg capsule,delayed release(DR/EC) 20 mg PO DAILY Qty: 30 2RF prazosin 5 mg capsule 5 mg PO BEDTIME Qty: 30 1RF Rx Instructions: TAKE WITH A 2 MG TO MAKE 7 MG AT BEDTIME prazosin 2 mg capsule 2 mg PO BEDTIME Qty: 30 1RF Rx Instructions: TAKE WITH A 5 MG TO MAKE 7 MG AT BEDTIME Latuda 60 mg tablet 60 mg PO DAILY Qty: 30 2RF Rx Instructions: must administer with food (at least 350 calories) hydroxyzine HCl 50 mg tablet 100 mg PO BEDTIME Qty: 60 2RF lorazepam [Ativan] 2 mg tablet 2 mg buccal Q6H PRN (Reason: nausea and vomiting) Qty: 14 0RF olanzapine 10 mg tablet 10 mg PO Q8H PRN (Reason: nausea and vommitting) Qty: 10 0RF ondansetron HCl 4 mg Tablet 4 mg PO Q6H PRN (Reason: Nausea And Vomiting) ibuprofen 200 mg Tablet 800 mg PO Q6H PRN (Reason: Pain) Held hydrocodone-acetaminophen 5-325 mg tablet 1 tab PO Q6H PRN (Reason: pain (scale score 7-10)) Qty: 10 0RF Hold Instructions: Resume on 07/22/23. Discharge Orders: Discharge Order (Routine); Ordered 07/17/23 Ordered By: Jaylan Bush Referrals: Jaylan Bush DO [Physician] - 2 weeks Harmony Jerez FNP [Primary Care Provider] - 4-7 days Discharge Diet: Advance as tolerated Discharge Activity: Resume usual activity Patient Instructions: Opioid Safety, Post Anesthesia Care Activity Restrictions/Additional Instructions: Do not soak incisions underwater for 2 weeks. Shower daily. Discharge Attestations Time Spent in Discharge Care*: less than 30 min Quality Metrics Clinical Quality Measures [ No reported AMI, CVA or VTE this stay] Coding Level of Care Code Acute Code for [facility] Fwd Diagnoses Acute appendicitis K35.30 Acute appendicitis type: with localized peritonitis Appendicitis abscess presence: without abscess Appendicitis gangrene presence: without gangrene Appendicitis perforation presence: without perforation
--- NOTE | 2023-07-17 07:28 | PC.NURSE ---
Patient reported to me Flora NT, around 0600 on 07/16 that during the day on 07/15 that Annmarie MINA had told her she didn't need pain medication because she had gotten pain medication during surgery after repeatedly reporting her pain level at a 7 and 8 throughout the day. She stated Annmarie RN told her to put a pillow on her stomach to decrease the pain because that is what her grandson does when his stomach hurts. She states that her pain medication was an hour late and after pressing the call light and Annmarie coming into the room she still did not receive her pain medication for another thirty minutes. The patient states that she was never informed that she had morphine that could be given to her between her scheduled pain medication until shift change happened and Wanda MINA and Berenice LUX took over. Patient states that she requested for her nicotine patch to be replaced because it was falling off and not sticking to her skin anymore, patient states that Annmarie MINA stated she would not change it since she was not the one that put it on and proceeded to stick a piece of tape over the nicotine patch. I then reported these to Sona, Charge Nurse.
[2023-07-17 08:00] VITALS: BP 135/74; PULSE 71; RESP 16; TEMP 36.6; O2SAT 98
[2023-07-17] MEDS: lurasidone 20 mg Tablet 60 MG PO (08:03)
[2023-07-17] MEDS: lisinopril 10 mg Tablet PO (08:09)
[2023-07-17] MEDS: ondansetron 4 MG Tablet 8 MG PO (10:36)
--- NOTE | 2023-08-03 08:58 | P.OP_ITS ---
Operative Report Date of procedure: July Pre-op diagnosis: Acute appendicitis Post-op diagnosis: same Procedure done: Laparoscopic appendectomy Implants: None Specimens removed/disposition: Appendix Surgeon: Jaylan Bush DO Anesthesia: General and Local Estimated blood loss (mL): 5 Complications: None apparent Brief History: This very pleasant 38-year-old female presented to the hospital with abdominal pain. She was diagnosed with acute appendicitis. Laparoscopic appendectomy was indicated. The risk benefits were explained and documented. Procedure: Patient was wheeled into the operative room and placed on the OR table in a supine position. Abdomen was inspected prepped and draped in usual sterile fashion. Time-out was performed and all present were in agreement. A 15 blade scalp was used to make a stab incision in the left upper quadrant and intra- abdominal insufflation was achieved using a Veress needle. After localizing the tissue incisions were made and a 12 millimeter trocar was placed into the umbilicus as well as a 5mm in the right lower quadrant and a 5 mm in the left lower quadrant . The appendix was identified and was mildly inflamed. I used the Voyant to ligate the mesoappendix at the base. I then used 2 PDS endo-loops to snare the base of the appendix. I then used the Voyant to ligate the appendix distally. The appendix was removed from the abdomen using an Endo- Catch bag through the umbilical incision. I examined the abdomen and no further pathology was identified. Hemostasis was noted. I then closed the umbilical site with a Jayden-Velma and 0 Vicryl suture in a figure of 8 fashion. All ports removed. Skin was washed and dried. Incisions were closed with 4 O Vicryl in a subcuticular interrupted fashion. Skin glue was applied. Patient tolerated the procedure well.
== END 2023-07-17 10:52 | disposition home or self-care (01) ==
LOC: ER 21:08 → MEDSURG 21:57
PROVIDERS: Admitting Provider Surgery; Emergency Provider Emergency Medicine; PCP Nurse Practitioner Family; Visit Provider Surgery
PROC: 0DTJ4ZZ Resection of Appendix, Percutaneous Endoscopic Approach (ICD-10-PCS; CPT 44970; principal; 2023-07-16 07:00)
DX: K35.80 Unspecified acute appendicitis (principal); E11.9 Type 2 diabetes mellitus without complications; F17.200 Nicotine dependence, unspecified, uncomplicated; I10 Essential (primary) hypertension; E66.01 Morbid (severe) obesity due to excess calories; Z68.41 Body mass index [BMI] 40.0-44.9, adult
CPT/HCPCS: 44970; 36415; 36416; 74177; 80053; 80306; 81003; 81025; 82962; 83690; 85025; 88304; 96365; 96375; 96376; 99285; G0378; J0330; J1100; J1170; J1200; J1630; J2250; J2270; J2405; J2543; J2704; J2765; J3010; J3490; J7030; Q0162; Q9967

== ENCOUNTER 2023-07-22 14:39 | Emergency (ER) | payer MEDICARE, SELFPAY ==
[2023-07-22 14:43] VITALS: BP 169/97; PULSE 69; RESP 20; TEMP 36.5; O2SAT 100
--- NOTE | 2023-07-22 15:14 | ED_ITS ---
HPI - Abdominal Pain 2 General: Chief Complaint: Abdominal Pain Stated Complaint: n/v, sweatring, abd pain, 6 days post surg Time Seen by Provider: 07/22/23 15:10 Source: patient Mode of arrival: ambulatory History of Present Illness: 38-year-old female who presents to the e mergency room with complaints of persistent nausea and vomiting right upper quadrant abdominal pain. 1 week ago she had her appendix removed laparoscopically. She states that she has not felt well the last day or so. She has had nausea vomiting abdominal pain and sweating she denies dysuria urgency or frequency no chest pain or shortness of breath no fever at home. MD elicited complaint: abdominal pain Onset (ago): day(s) Location: Epigastric and RUQ Severity: mild Quality: cramping Radiation: none Exacerbating factors: vomiting Relieving factors: nothing Associated Symptoms: Reports bloating, constipation and GI cramping; Denies anorexia, belching, change in bowel habits, change in stool character, chills, coffee ground emesis, diarrhea, dyspepsia, dysuria, excessive flatus, fever(s), heartburn, hematochezia, hematuria, hematemesis, fecal incontinence, loose stools, melena, nausea, poor appetite, syncope and vomiting Related Data: Date of Last Menstrual Period: 06/24/23 Review of Systems 2 Const: Denies: fever(s) or chills Card: Denies: chest pain or syncope Resp: Denies: dyspnea GI: Reports: constipation, bloating and GI cramping; Denies: abdominal pain, nausea, vomiting, hematemesis, coffee ground emesis, heartburn, diarrhea, belching, excessive flatus, fecal incontinence, change in bowel habits, change in stool character, hematochezia or melena : Denies: dysuria, urinary frequency, urinary urgency or hematuria Musc: Denies: neck pain or back pain Skin/Breast: Denies: rash PFSH ED 2 PFSH: Medical History Bipolar II disorder DM type 2 (diabetes mellitus, type 2) Social History Smoking and tobacco/nicotine status: current every day tobacco/nicotine user cigarettes Packs smoked per day: 1 Years cigarettes smoked: 14 Quit status (tobacco/nicotine): has tried quititng Number of times tried to quit tobacco: 2 Second hand smoke exposure: Yes Female Reproductive History: Date of last menstrual period: 06/24/23 Physical Exam 2 Const: GENERAL APPEARANCE: cooperative ORIENTATION/CONSCIOUSNESS: Yes awake, Yes oriented to person, Yes oriented to place and Yes oriented to time HENMT: COMMON NORMALS: normocephalic, atraumatic and hearing grossly normal bilaterally HEAD & SCALP: normocephalic and atraumatic Resp: COMMON NORMALS: normal respiratory effort, No retractions, No use of accessory muscles and clear to auscultation bilaterally AUSCULTATION: clear to auscultation bilaterally Cardio: COMMON NORMALS: regular rate, regular rhythm and No murmurs present (Cardio) RATE: regular rate RHYTHM: regular rhythm GI: COMMON NORMALS: No hepatosplenomegaly present AUSCULTATION: Yes normoactive bowel sounds PALPATION: Yes Tenderness to palpation present (GI) (Epigastric/right upper quadrant), No Guarding due to palpation present (GI) and Yes No hepatosplenomegaly present Extremity: COMMON NORMALS: normal to inspection, capillary refill normal, no clubbing, cyanosis or edema, no calf tenderness and no pedal edema Neuro: SENSORIUM/ORIENTATION: Yes oriented to person, Yes oriented to place and Yes oriented to time Skin: COMMON NORMALS: no rashes or lesions noted GENERAL SKIN EXAM: no rashes or lesions noted Course 2 Vital Signs: Vital signs: Vital Signs Temperature 97.7 F 07/22/23 14:43 Pulse Rate 72 07/22/23 18:31 Respiratory Rate 15 07/22/23 16:54 Blood Pressure 164/75 07/22/23 17:03 Pulse Oximetry 96 07/22/23 18:31 Oxygen Delivery Me thod Room Air 07/22/23 16:54 MDM - Abdominal Pain Medical Decision Making Patient has a leukocytosis a white count of 17.7 I suspect some of this is demargination her liver enzymes are normal and her T. bili is normal she had 2+ ketones she had very aggressive continuous vomiting that was refractory to typical antiemetics. Patient has not not been using the medical marijuana since her appendectomy. The aggressiveness of her vomiting appears to be a cyclical vomiting/cannabinoid hyperemesis type presentation she did have good relief with Ativan and Haldol. She has had this in the past as well. Will discharge patient home with buccal Ativan and sublingual olanzapine. Return if has further problems. Reviewed CT findings with the patient Medical Records I reviewed the patient's medical records. Lab Data I reviewed the patient's lab results. 07/22/23 15:34 07/22/23 15:34 Labs/Radiology: Radiology Impressions Abdomen/Pelvis CT 07/22/23 15:16 IMPRESSION: No acute findings. Laboratory Results WBC 17.74 10^3/uL (3.29-11.43) H 07/22/23 15:34 RBC 5.22 10^6/uL (3.85-5.65) 07/22/23 15:34 Hgb 15.20 g/dL (11.27-16.99) 07/22/23 15:34 Hct 45.8 % (36-47) 07/22/23 15:34 MCV 87.7 fl (85-98) 07/22/23 15:34 MCH 29.1 pg (27-33) 07/22/23 15:34 MCHC 33.2 g/dL (30-55) 07/22/23 15:34 RDW 12.6 % (12.1-15.1) 07/22/23 15:34 Plt Count 188 10^3/cmm (157-399) 07/22/23 15:34 MPV 11.8 fL (7.4-10.4) H 07/22/23 15:34 Neut % (Auto) 80.5 % 07/22/23 15:34 Lymph % (Auto) 13.0 % 07/22/23 15:34 Hale % (Auto) 4.8 % 07/22/23 15:34 Eos % (Auto) 0.8 % 07/22/23 15:34 Baso % (Auto) 0.3 % 07/22/23 15:34 Neut # (Auto) 14.28 10^3/uL (1.8-7.7) H 07/22/23 15:34 Lymph # (Auto) 2.3 10^3/uL (0.8-4.8) 07/22/23 15:34 Hale # (Auto) 0.9 10^3/uL (0.2-0.9) 07/22/23 15:34 Eos # (Auto) 0.1 10^3/uL (0.0-0.8) 07/22/23 15:34 Baso # (Auto) 0.1 10^3/uL (0.0-0.1) 07/22/23 15:34 Nucleated RBC % (auto) 0 % 07/22/23 15:34 Nucleated RBCs # 0.0 /100WBC 07/22/23 15:34 Sodium 136 mmol/L (136-145) 07/22/23 15:34 Potassium 4.0 mmol/L (3.5-5.1) 07/22/23 15:34 Chloride 104 mmol/L (98-107) 07/22/23 15:34 Carbon Dioxide 21 mmol/L (22-29) L 07/22/23 15:34 Anion Gap 15.0 (5-19) 07/22/23 15:34 BUN 8 mg/dL (6-20) 07/22/23 15:34 Creatinine 0.4 mg/dL (0.5-0.9) L 07/22/23 15:34 GFR Calculation 179.6 mL/min (90-130) H 07/22/23 15:34 Glucose 276 mg/dL (65-115) H 07/22/23 15:34 Calculated Osmolality 290 mOsm/kg (285-295) 07/22/23 15:34 Lactic Acid 1.4 mmol/L (0.5-2.2) 07/22/23 15:34 Calcium 9.1 mg/dL (8.5-10.5) 07/22/23 15:34 Magnesium 1.9 mg/dL (1.7-2.3) 07/22/23 15:34 Total Bilirubin 0.3 mg/dL (0.15-1.2) 07/22/23 15:34 AST 8 U/L (0-32) 07/22/23 15:34 ALT 11 U/L (0-33) 07/22/23 15:34 Alkaline Phosphatase 78 U/L (35-105) 07/22/23 15:34 Total Protein 7.4 g/dL (6.6-8.7) 07/22/23 15:34 Albumin 4.1 g/dL (3.5-5.2) 07/22/23 15:34 Globulin 3.3 g/dL (1.3-4.6) 07/22/23 15:34 Lipase 33 U/L (13-60) 07/22/23 15:34 Urine Color Yellow (Yellow) 07/22/23 16:44 Urine Appearance Clear (CLEAR) 07/22/23 16:44 Urine pH 6 (5-7) 07/22/23 16:44 Ur Specific [place] 1.010 (1.005-1.030) 07/22/23 16:44 Urine Protein Trace (Negative) 07/22/23 16:44 Urine Glucose (UA) Norm (Normal) 07/22/23 16:44 Urine Ketones 2+ (Negative) H 07/22/23 16:44 Urine Blood Neg (Negative) 07/22/23 16:44 Urine Nitrate Negative (Negative) 07/22/23 16:44 Urine Bilirubin Neg (Negative) 07/22/23 16:44 Urine Urobilinogen Norm mg/dL (Negative) 07/22/23 16:44 Ur Leukocyte Esterase Negative (Negative) 07/22/23 16:44 Urine RBC None /hpf (0-2) 07/22/23 16:44 Urine WBC None /hpf (0-5) 07/22/23 16:44 Ur Squamous Epith Cells 0-4 /hpf (0-5) H 07/22/23 16:44 Amorphous Sediment Not Reportable 07/22/23 16:44 Urine Bacteria Trace /hpf (NONE) 07/22/23 16:44 All radiology interpretation(s) finalized by discharge Discharge Plan Discharge Patient Disposition: Home Clinical Impression: Nausea and vomiting Condition: Stable Prescriptions: New Ativan 2 mg tablet 2 mg buccal Q6H PRN (Reason: nausea and vomiting) Qty: 14 0RF olanzapine 10 mg tablet,disintegrating 10 mg PO Q6H PRN (Reason: nausea and vomiting) Qty: 14 0RF No Action glimepiride 1 mg tablet 1 mg PO QAM lisinopril 10 mg tablet 10 mg PO DAILY Naprosyn 500 mg tablet 500 mg PO BID PRN (Reason: pain) Patient Comments: pt not taking medical marijuana 1 dose inhalation DAILY Rx Instructions: for Pain multivitamin Tablet 1 tab PO DAILY omeprazole 20 mg capsule,delayed release(DR/EC) 20 mg PO DAILY Qty: 30 2RF prazosin 5 mg capsule 5 mg PO BEDTIME Qty: 30 1RF Rx Instructions: TAKE WITH A 2 MG TO MAKE 7 MG AT BEDTIME prazosin 2 mg capsule 2 mg PO BEDTIME Qty: 30 1RF Rx Instructions: TAKE WITH A 5 MG TO MAKE 7 MG AT BEDTIME Latuda 60 mg tablet 60 mg PO DAILY Qty: 30 2RF Rx Instructions: must administer with food (at least 350 calories) hydroxyzine HCl 50 mg tablet 100 mg PO BEDTIME Qty: 60 2RF hydrocodone-acetaminophen 7.5-325 mg tablet 1 tab PO Q6H PRN (Reason: pain) 5 Days Qty: 20 0RF hydrocodone-acetaminophen 5-325 mg tablet 1 tab PO Q6H PRN (Reason: pain (scale score 7-10)) Qty: 10 0RF Hold Instructions: Resume on 07/22/23. lorazepam [Ativan] 2 mg tablet 2 mg buccal Q6H PRN (Reason: nausea and vomiting) Qty: 14 0RF olanzapine 10 mg tablet 10 mg PO Q8H PRN (Reason: nausea and vommitting) Qty: 10 0RF ondansetron HCl 4 mg Tablet 4 mg PO Q6H PRN (Reason: Nausea And Vomiting) ibuprofen 200 mg Tablet 800 mg PO Q6H PRN (Reason: Pain) amoxicillin-pot clavulanate 875-125 mg tablet 1 tab PO BID Qty: 14 0RF Colace 100 mg capsule 100 mg PO BID Qty: 14 0RF Discharge Orders: Discharge ED (Routine); Ordered 07/22/23 Ordered By: Silverio Dawkins Referrals: Harmony Jerez FNP [Primary Care Provider] - Discharge Diet: Usual diet Discharge Activity: Increase activity as tolerated Patient Instructions: Opioid Safety, Pain Management Activity Restrictions/Additional Instructions: Thank you for choosing [facility] for your healthcare needs today. Please realize this is an emergency room and that we are providing you with a medical screening exam and this may not be complete and all inclusive of all the testing and or work up that you may need to determine your ailment or severity of your illness. It is very important that you follow up as instructed or that you return to the Emergency Department should you have concerns or if your condition changes or worsens in any way. You were seen today for abdominal pain and nausea and vomitting. The CT done in the ER today was negative for any acute findings. The nausea and vomitting were improved with medicaitons given in the ER. You can use the olanzapine and the ativan as needed for nausea and vomitting. Coding Level of Care Code ED Flight Simulator Teacher for Pari Oliver
--- NOTE | 2023-07-22 15:16 | CTR_ITS ---
PROCEDURE INFORMATION: Exam: CT Abdomen And Pelvis With Contrast Exam date and time: 07/22/2023 4:08 PM Age: 38 years old Clinical indication: Nausea and vomiting; Abdominal pain; Localized; Right upper quadrant (ruq); Prior surgery; Surgery date: 3-7 days post-operative; Surgery type: Appy; Additional info: Abd pain TECHNIQUE: Imaging protocol: Computed tomography of the abdomen and pelvis with contrast. Radiation optimization: All CT scans at this facility use at least one of these dose optimization techniques: automated exposure control; mA and/or kV adjustment per patient size (includes targeted exams where dose is matched to clinical indication); or iterative reconstruction. Contrast material: OMNI 350; Contrast volume: 100 ml; Contrast route: INTRAVENOUS (IV); COMPARISON: CT abdomen pelvis w con* [id number] 07/15/2023 8:16 PM RADIATION DOSE METRICS: Total DLP (mGy-cm): 1605.23 FINDINGS: Lungs: Lung bases are clear. No pleural effusion. Liver: Normal. No mass. Gallbladder and bile ducts: Normal. No calcified stones. No ductal dilation. Pancreas: Normal. No ductal dilation. Spleen: Normal. No splenomegaly. Adrenal glands: Normal. No mass. Kidneys and ureters: Normal. No hydronephrosis. Stomach and bowel: Unremarkable. No obstruction. No mucosal thickening. Appendix: No evidence of appendicitis. Intraperitoneal space: Unremarkable. No free air. No significant fluid collection. Vasculature: Unremarkable. No abdominal aortic aneurysm. Lymph nodes: Unremarkable. No enlarged lymph nodes. Urinary bladder: Unremarkable as visualized. Reproductive: Unremarkable as visualized. Bones/joints: Unremarkable. No acute fracture. Soft tissues: Unremarkable. CT/CT abdomen pelvis w con* [id number] IMPRESSION: No acute findings.
[2023-07-22 15:49] LABS: Basophils # 0.1 10^3/uL (0.0-0.1); Basophils % 0.3 %; Eosinophils # 0.1 10^3/uL (0.0-0.8); Eosinophils % 0.8 %; Hematocrit 45.8 % (36-47); Lymphocytes # 2.3 10^3/uL (0.8-4.8); Mean Corpuscular HGB Conc 33.2 g/dL (30-55); Mean Corpuscular Hemoglobin 29.1 pg (27-33); Mean Corpuscular Volume 87.7 fl (85-98); Mean Platelet Volume 11.8 fL (7.4-10.4); Monocytes # 0.9 10^3/uL (0.2-0.9); Monocytes % 4.8 %; Neutrophils # 14.28 10^3/uL (1.8-7.7); Neutrophils % 80.5 %; Nucleated Red Blood Cells % 0 %; Platelet Count 188 10^3/cmm (157-399); Red Blood Count 5.22 10^6/uL (3.85-5.65); Red Cell Distribution Width 12.6 % (12.1-15.1); White Blood Count 17.74 10^3/uL (3.29-11.43)
[2023-07-22 15:50] VITALS: PULSE 67; O2SAT 97
[2023-07-22] MEDS: ondansetron 2 mg/ML SDV 2 mL 4 MG IVP (16:04)
[2023-07-22] MEDS: sodium chloride 0.9% 1,000 ML 999 ML IV (16:04)
[2023-07-22] MEDS: iohexol 350 mg/mL 500 mL Btl (per mL) IV (16:08)
[2023-07-22 16:14] LABS: Alanine Aminotransferase 11 U/L (0-33); Albumin Level 4.1 g/dL (3.5-5.2); Alkaline Phosphatase 78 U/L (35-105); Aspartate Amino Transferase 8 U/L (0-32); Blood Urea Nitrogen 8 mg/dL (6-20); Calcium 9.1 mg/dL (8.5-10.5); Carbon Dioxide 21 mmol/L (22-29); Chloride 104 mmol/L (98-107); Globulin 3.3 g/dL (1.3-4.6); Glomerular Filtration Rate 179.6 mL/min (90-130); Glucose 276 mg/dL (65-115); Lipase 33 U/L (13-60); Magnesium 1.9 mg/dL (1.7-2.3); Osmolality Calculated 290 mOsm/kg (285-295); Sodium 136 mmol/L (136-145); Total Bilirubin 0.3 mg/dL (0.15-1.2); Total Protein 7.4 g/dL (6.6-8.7)
[2023-07-22 16:15] LABS: Creatinine Clr Calc Pharmacy 280.6975; Lactic Sepsis W/Reflex 1.4 mmol/L (0.5-2.2)
[2023-07-22] MEDS: LORazepam 2 mg/mL INJ 10 mL MDV IVP (16:53)
[2023-07-22] MEDS: haloperidol inj 5 mg/mL INJ 1 mL 2.5 MG IVP (16:53)
[2023-07-22 16:54] VITALS: BP 154/84; PULSE 67; RESP 15; O2SAT 97
[2023-07-22 17:03] VITALS: BP 164/75; PULSE 64; O2SAT 97
[2023-07-22 17:18] LABS: Add Urine Microscopic? YES; Bilirubin Urine Neg (Negative); Blood Urine Neg (Negative); Glucose Urine UA Norm (Normal); Ketones Urine 2+ (Negative); Leukocyte Esterase Urine Negative (Negative); Nitrate Urine Negative (Negative); Protein Urine Trace (Negative); Urine Appearance Clear (CLEAR); Urine Color Yellow (Yellow); Urobilinogen Urine Norm (Negative); pH Urine 6 (5-7)
[2023-07-22 17:19] LABS: Add Urine Culture? No; Bacteria Urine TRACE /hpf; Squamous Epithelial Cell Urine 0-4 /hpf (0-5)
[2023-07-22 17:30] VITALS: PULSE 72; O2SAT 96
[2023-07-22 18:31] VITALS: PULSE 72; O2SAT 96
== END 2023-07-22 18:32 | disposition home or self-care (01) ==
PROVIDERS: Emergency Medicine; Emergency Provider Family Medicine; PCP Nurse Practitioner Family
DX: R11.2 Nausea with vomiting, unspecified (principal); Z79.84 Long term (current) use of oral hypoglycemic drugs; E11.9 Type 2 diabetes mellitus without complications; F17.210 Nicotine dependence, cigarettes, uncomplicated
CPT/HCPCS: 36415; 74177; 80053; 81001; 83605; 83690; 83735; 85025; 87040; 96374; 96375; 99285; J1630; J2060; J2405; J7030; Q9967

== ENCOUNTER → 2023-07-30 13:55 | Outpatient (BNVA) | payer MEDICARE, SELFPAY | PROVIDERS: PCP Nurse Practitioner Family; Visit Provider Surgery | DX: Z90.49 Acquired absence of other specified parts of digestive tract (principal); Z98.890 Other specified postprocedural states | CPT/HCPCS: 99024 ==

== ENCOUNTER 2023-08-06 05:28 | Emergency (ER) | payer MEDICARE, SELFPAY ==
[2023-08-06 05:32] VITALS: BP 145/96; PULSE 81; RESP 16; TEMP 36.9; O2SAT 97; BMI 42.0
--- NOTE | 2023-08-06 05:41 | ED_ITS ---
Documented by User: José Sullivan DO 08/06/23 05:44 HPI - Nausea/Vomiting/Diarrhea 2 General: Chief complaint: Nausea/Vomiting/Diarrhea Stated complaint: N\V Lower Back Pain\Chest Hurts Time Seen by Provider: 08/06/23 05:32 History of Present Illness: Patient presents to the ER with complaints of uncontrolled nausea vomiting for the last 24 hours. Patient had her appendix out approximately 2 weeks ago and everything went good and she was doing well postsurgically but she has had to come to the ER 1 time for similar nausea vomiting. Patient was doing better after that up until the last 24 hours. Patient says she is through at least every hour on the hour even trying to take her Zofran. Patient says her abdomen and chest are now both starting to hurt after throwing up so much. Patient did have her follow-up with Dr. Bush for postop laparoscopic appendectomy and she said he said everything was going good. Review of Systems 2 General: Reports: 10 or more systems reviewed and unremarkable except in HPI and below PFSH ED 2 PFSH: Medical History Bipolar II disorder DM type 2 (diabetes mellitus, type 2) Social History Smoking and tobacco/nicotine status: current every day tobacco/nicotine user cigarettes Packs smoked per day: 1 Years cigarettes smoked: 14 Quit status (tobacco/nicotine): has tried quititng Number of times tried to quit tobacco: 2 Second hand smoke exposure: Yes Substance/Drug Use: current Substance/Drug use frequency: daily Physical Exam 2 Const: COMMON NORMALS: no acute distress, average body habitus, patient oriented x3, no limitations, healthy appearing, alert and well nourished HENMT: COMMON NORMALS: normocephalic, atraumatic, hearing grossly normal bilaterally, external ears normal, Normal external nose present, moist oral mucous membranes and oropharynx normal HEAD & SCALP: normocephalic and atraumatic NOSE: Normal external nose present EXTERNAL EAR: Yes external ears normal Neck/C-Spine: COMMON NORMALS: no JVD Chest: COMMONS NORMALS: normal inspection of the chest and normal palpation of entire chest wall Resp: COMMON NORMALS: normal respiratory effort, No retractions, No use of accessory muscles and clear to auscultation bilaterally AUSCULTATION: clear to auscultation bilaterally Cardio: COMMON NORMALS: no JVD, regular rate, regular rhythm, S1 normal heart sound present, S2 normal heart sound present, No gallops present (Cardio), No clicks present (Cardio), No murmurs present (Cardio) and No rub (Cardio) R ATE: regular rate RHYTHM: regular rhythm HEART SOUNDS: S1 normal heart sound present and S2 normal heart sound present GI: COMMON NORMALS: Normal to inspection, nondistended, normoactive bowel sounds present, Soft to palpation, No hepatosplenomegaly present and no masses; negative for non-tender (Mildly tender to palpate worse in the left upper quadrant) PALPATION: Yes Soft to palpation and Yes No hepatosplenomegaly present Neuro: COMMON NORMALS: patient oriented x3 SENSORIUM/ORIENTATION: Yes alert Course 2 Vital Signs: Vital signs: Vital Signs Temperature 98.5 F 08/06/23 05:32 Pulse Rate 80 08/06/23 07:30 Respiratory Rate 15 08/06/23 07:30 Blood Pressure 164/86 08/06/23 06:38 Pulse Oximetry 95 08/06/23 07:30 Oxygen Delivery Me thod Room Air 08/06/23 07:30 MDM - Nausea/Vomiting/Diarrhea Lab Data 08/06/23 05:39 08/06/23 05:39 Laboratory Results WBC 15.02 10^3/uL (3.29-11.43) H 08/06/23 05:39 RBC 5.20 10^6/uL (3.85-5.65) 08/06/23 05:39 Hgb 15.20 g/dL (11.27-16.99) 08/06/23 05:39 Hct 45.0 % (36-47) 08/06/23 05:39 MCV 86.5 fl (85-98) 08/06/23 05:39 MCH 29.2 pg (27-33) 08/06/23 05:39 MCHC 33.8 g/dL (30-55) 08/06/23 05:39 RDW 12.5 % (12.1-15.1) 08/06/23 05:39 Plt Count 212 10^3/cmm (157-399) 08/06/23 05:39 MPV 11.8 fL (7.4-10.4) H 08/06/23 05:39 Neut % (Auto) 77.2 % 08/06/23 05:39 Lymph % (Auto) 16.2 % 08/06/23 05:39 [place] % (Auto) 5.9 % 08/06/23 05:39 Eos % (Auto) 0.1 % 08/06/23 05:39 Baso % (Auto) 0.3 % 08/06/23 05:39 Neut # (Auto) 11.59 10^3/uL (1.8-7.7) H 08/06/23 05:39 Lymph # (Auto) 2.4 10^3/uL (0.8-4.8) 08/06/23 05:39 [place] # (Auto) 0.9 10^3/uL (0.2-0.9) 08/06/23 05:39 Eos # (Auto) 0.0 10^3/uL (0.0-0.8) 08/06/23 05:39 Baso # (Auto) 0.1 10^3/uL (0.0-0.1) 08/06/23 05:39 Nucleated RBC % (auto) 0 % 08/06/23 05:39 Nucleated RBCs # 0.0 /100WBC 08/06/23 05:39 Sodium 140 mmol/L (136-145) 08/06/23 05:39 Potassium 3.7 mmol/L (3.5-5.1) 08/06/23 05:39 Chloride 100 mmol/L (98-107) 08/06/23 05:39 Carbon Dioxide 27 mmol/L (22-29) 08/06/23 05:39 Anion Gap 16.7 (5-19) 08/06/23 05:39 BUN 8 mg/dL (6-20) 08/06/23 05:39 Creatinine 0.5 mg/dL (0.5-0.9) 08/06/23 05:39 GFR Calculation 138.8 mL/min (90-130) H 08/06/23 05:39 Glucose 254 mg/dL (65-115) H 08/06/23 05:39 Calculated Osmolality 297 mOsm/kg (285-295) H 08/06/23 05:39 Calcium 9.4 mg/dL (8.5-10.5) 08/06/23 05:39 Magnesium 1.7 mg/dL (1.7-2.3) 08/06/23 05:39 Total Bilirubin 0.4 mg/dL (0.15-1.2) 08/06/23 05:39 AST 11 U/L (0-32) 08/06/23 05:39 ALT 20 U/L (0-33) 08/06/23 05:39 Alkaline Phosphatase 74 U/L (35-105) 08/06/23 05:39 Total Protein 7.8 g/dL (6.6-8.7) 08/06/23 05:39 Albumin 4.4 g/dL (3.5-5.2) 08/06/23 05:39 Globulin 3.4 g/dL (1.3-4.6) 08/06/23 05:39 Urine Color Yellow (Yellow) 08/06/23 05:48 Urine Appearance Sl hazy (CLEAR) A 08/06/23 05:48 Urine pH 6.5 (5-7) 08/06/23 05:48 Ur Specific [place] 1.015 (1.005-1.030) 08/06/23 05:48 Urine Protein 1+ (Negative) H 08/06/23 05:48 Urine Glucose (UA) 2+ (Normal) H 08/06/23 05:48 Urine Ketones 2+ (Negative) H 08/06/23 05:48 Urine Blood Neg (Negative) 08/06/23 05:48 Urine Nitrate Negative (Negative) 08/06/23 05:48 Urine Bilirubin Neg (Negative) 08/06/23 05:48 Urine Urobilinogen Neg mg/dL (Negative) 08/06/23 05:48 Ur Leukocyte Esterase Negative (Negative) 08/06/23 05:48 Urine RBC 0-4 /hpf (0-2) H 08/06/23 05:48 Urine WBC 10-15 /hpf (0-5) H 08/06/23 05:48 Ur Squamous Epith Cells 0-4 /hpf (0-5) H 08/06/23 05:48 Amorphous Sediment Not Reportable 08/06/23 05:48 Urine Bacteria 1+ /hpf (NONE) H 08/06/23 05:48 Urine Mucus 2+ /hpf 08/06/23 05:48 EKG Data EKG 1: I personally reviewed and interpreted this EKG as follows: EKG interpretation date: 08/06/23 EKG interpretation time: 05:36 Interpretation: Ventricular rate 71 bpm, MN interval 148, QRS duration 96, QTc of 418, sinus rhythm, Discharge Plan Discharge Patient Disposition: Home Clinical Impression: Cannabinoid hyperemesis syndrome Condition: Stable Prescriptions: New Ativan 2 mg tablet 2 mg buccal Q6H PRN (Reason: nausea and vomiting) Qty: 14 0RF olanzapine 10 mg tablet,disintegrating 10 mg PO Q6H PRN (Reason: nausea and vomiting) Qty: 14 0RF Macrobid 100 mg capsule 100 mg PO BID 7 Days Qty: 14 0RF Rx Instructions: must administer with a meal/food Discontinued lorazepam [Ativan] 2 mg tablet 2 mg buccal Q6H PRN (Reason: nausea and vomiting) Qty: 14 0RF olanzapine 10 mg tablet,disintegrating 10 mg PO Q6H PRN (Reason: nausea and vomiting) Qty: 14 0RF No Action Naprosyn 500 mg tablet 500 mg PO BID PRN (Reason: pain) Patient Comments: pt not taking hydrocodone-acetaminophen 7.5-325 mg tablet 1 tab PO Q6H PRN (Reason: pain) 5 Days Qty: 20 0RF Tylenol Ex Str Rapid Release 500 mg Tablet 1,000 mg PO Q6H PRN (Reason: Pain) Migraine Relief 250-250-65 mg Tablet 2 tab PO Q6H PRN (Reason: Migraine Headache) Colace 100 mg capsule 100 mg PO BID PRN (Reason: Constipation) omeprazole 20 mg capsule,delayed release(DR/EC) 20 mg PO DAILY PRN (Reason: Heartburn) ondansetron HCl 4 mg Tablet 4 mg PO Q6H PRN (Reason: Nausea And Vomiting) ibuprofen 200 mg Tablet 800 mg PO Q6H PRN (Reason: Pain) Discharge Orders: Discharge ED (Routine); Ordered 08/06/23 Ordered By: Silverio Dawkins Referrals: Harmony Jerez FNP [Primary Care Provider] - Discharge Diet: Clear Liquid Discharge Activity: Increase activity as tolerated Patient Instructions: Opioid Safety, Pain Management Activity Restrictions/Additional Instructions: Thank you for choosing [facility] for your healthcare needs today. Please realize this is an emergency room and that we are providing you with a medical screening exam and this may not be complete and all inclusive of all the testing and or work up that you may need to determine your ailment or severity of your illness. It is very important that you follow up as instructed or that you return to the Emergency Department should you have concerns or if your condition changes or worsens in any way. You are seen today for recurrent nausea vomiting. Suspect this may be related to the use of medical marijuana recommend decreasing use of concentrated sources. You can use the Ativan and olanzapine as needed to control symptoms. If you have persistent symptoms that are refractory to medications or if you have change in symptoms or develop fever return. He also were noted to have a mild bladder infection for which you were given an oral antibiotic. Sign Out Sign Out Data: Patient Sign Out occurred on 08/06/23 at 06:18. Patient's care was discussed, and care was transferred from José Sullivan DO to Silverio Dawkins DO. Coding Level of Care Code ED Shipboard Intelligence Analyst for Chg Fwd Documented by User: Silverio Dawkins DO 08/06/23 09:50 HPI - Nausea/Vomiting/Diarrhea 2 General: Chief complaint: Nausea/Vomiting/Diarrhea Stated complaint: N\V Lower Back Pain\Chest Hurts Time Seen by Provider: 08/06/23 05:32 [facility] ED 2 PFS: Medical History Bipolar II disorder DM type 2 (diabetes mellitus, type 2) Social History Smoking and tobacco/nicotine status: current every day tobacco/nicotine user cigarettes Packs smoked per day: 1 Years cigarettes smoked: 14 Quit status (tobacco/nicotine): has tried quititng Number of times tried to quit tobacco: 2 Second hand smoke exposure: Yes Substance/Drug Use: current Substance/Drug use frequency: daily Course 2 Vital Signs: Vital signs: Vital Signs Temperature 98.5 F 08/06/23 05:32 Pulse Rate 80 08/06/23 07:30 Respiratory Rate 15 08/06/23 07:30 Blood Pressure 164/86 08/06/23 06:38 Pulse Oximetry 95 08/06/23 07:30 Oxygen Delivery Me thod Room Air 08/06/23 07:30 MDM - Nausea/Vomiting/Diarrhea Medical Decision Making Care assumed at change of shift. Patient has had several visits previously for hyperemesis related to cannabis use I think that is the same case again today. She does have a mildly elevated white count which she tells me on a previous visit was chronic she has not had a fever at all her abdominal exam is rather benign. Reviewed the remainder of her labs. She does look sick she may have a mild cystitis she was given a gram of ceftriaxone here she did respond well to Haldol and Ativan discharge patient home with olanzapine sublingual tablets and buccal Ativan. Also a course of Macrobid. Discussed again the use of medical marijuana with her that decreasing frequency or avoiding concentrated products such as vape oils and edibles may decrease her symptoms. Follow-up with primary care. Consider repeat CT however based on her repeat exam and CT being negative prior I do not believe at this time she would benefit. Return if has any change or worsening symptoms. Medical Records I reviewed the patient's medical records. Lab Data I reviewed the patient's lab results. 08/06/23 05:39 08/06/23 05:39 Laboratory Results WBC 15.02 10^3/uL (3.29-11.43) H 08/06/23 05:39 RBC 5.20 10^6/uL (3.85-5.65) 08/06/23 05:39 Hgb 15.20 g/dL (11.27-16.99) 08/06/23 05:39 Hct 45.0 % (36-47) 08/06/23 05:39 MCV 86.5 fl (85-98) 08/06/23 05:39 MCH 29.2 pg (27-33) 08/06/23 05:39 MCHC 33.8 g/dL (30-55) 08/06/23 05:39 RDW 12.5 % (12.1-15.1) 08/06/23 05:39 Plt Count 212 10^3/cmm (157-399) 08/06/23 05:39 MPV 11.8 fL (7.4-10.4) H 08/06/23 05:39 Neut % (Auto) 77.2 % 08/06/23 05:39 Lymph % (Auto) 16.2 % 08/06/23 05:39 [place] % (Auto) 5.9 % 08/06/23 05:39 Eos % (Auto) 0.1 % 08/06/23 05:39 Baso % (Auto) 0.3 % 08/06/23 05:39 Neut # (Auto) 11.59 10^3/uL (1.8-7.7) H 08/06/23 05:39 Lymph # (Auto) 2.4 10^3/uL (0.8-4.8) 08/06/23 05:39 [place] # (Auto) 0.9 10^3/uL (0.2-0.9) 08/06/23 05:39 Eos # (Auto) 0.0 10^3/uL (0.0-0.8) 08/06/23 05:39 Baso # (Auto) 0.1 10^3/uL (0.0-0.1) 08/06/23 05:39 Nucleated RBC % (auto) 0 % 08/06/23 05:39 Nucleated RBCs # 0.0 /100WBC 08/06/23 05:39 Sodium 140 mmol/L (136-145) 08/06/23 05:39 Potassium 3.7 mmol/L (3.5-5.1) 08/06/23 05:39 Chloride 100 mmol/L (98-107) 08/06/23 05:39 Carbon Dioxide 27 mmol/L (22-29) 08/06/23 05:39 Anion Gap 16.7 (5-19) 08/06/23 05:39 BUN 8 mg/dL (6-20) 08/06/23 05:39 Creatinine 0.5 mg/dL (0.5-0.9) 08/06/23 05:39 GFR Calculation 138.8 mL/min (90-130) H 08/06/23 05:39 Glucose 254 mg/dL (65-115) H 08/06/23 05:39 Calculated Osmolality 297 mOsm/kg (285-295) H 08/06/23 05:39 Calcium 9.4 mg/dL (8.5-10.5) 08/06/23 05:39 Magnesium 1.7 mg/dL (1.7-2.3) 08/06/23 05:39 Total Bilirubin 0.4 mg/dL (0.15-1.2) 08/06/23 05:39 AST 11 U/L (0-32) 08/06/23 05:39 ALT 20 U/L (0-33) 08/06/23 05:39 Alkaline Phosphatase 74 U/L (35-105) 08/06/23 05:39 Total Protein 7.8 g/dL (6.6-8.7) 08/06/23 05:39 Albumin 4.4 g/dL (3.5-5.2) 08/06/23 05:39 Globulin 3.4 g/dL (1.3-4.6) 08/06/23 05:39 Urine Color Yellow (Yellow) 08/06/23 05:48 Urine Appearance Sl hazy (CLEAR) A 08/06/23 05:48 Urine pH 6.5 (5-7) 08/06/23 05:48 Ur Specific [place] 1.015 (1.005-1.030) 08/06/23 05:48 Urine Protein 1+ (Negative) H 08/06/23 05:48 Urine Glucose (UA) 2+ (Normal) H 08/06/23 05:48 Urine Ketones 2+ (Negative) H 08/06/23 05:48 Urine Blood Neg (Negative) 08/06/23 05:48 Urine Nitrate Negative (Negative) 08/06/23 05:48 Urine Bilirubin Neg (Negative) 08/06/23 05:48 Urine Urobilinogen Neg mg/dL (Negative) 08/06/23 05:48 Ur Leukocyte Esterase Negative (Negative) 08/06/23 05:48 Urine RBC 0-4 /hpf (0-2) H 08/06/23 05:48 Urine WBC 10-15 /hpf (0-5) H 08/06/23 05:48 Ur Squamous Epith Cells 0-4 /hpf (0-5) H 08/06/23 05:48 Amorphous Sediment Not Reportable 08/06/23 05:48 Urine Bacteria 1+ /hpf (NONE) H 08/06/23 05:48 Urine Mucus 2+ /hpf 08/06/23 05:48 No radiology studies performed this visit Discharge Plan Discharge Patient Disposition: Home Clinical Impression: Cannabinoid hyperemesis syndrome Condition: Stable Prescriptions: New Ativan 2 mg tablet 2 mg buccal Q6H PRN (Reason: nausea and vomiting) Qty: 14 0RF olanzapine 10 mg tablet,disintegrating 10 mg PO Q6H PRN (Reason: nausea and vomiting) Qty: 14 0RF Macrobid 100 mg capsule 100 mg PO BID 7 Days Qty: 14 0RF Rx Instructions: must administer with a meal/food Discontinued lorazepam [Ativan] 2 mg tablet 2 mg buccal Q6H PRN (Reason: nausea and vomiting) Qty: 14 0RF olanzapine 10 mg tablet,disintegrating 10 mg PO Q6H PRN (Reason: nausea and vomiting) Qty: 14 0RF No Action Naprosyn 500 mg tablet 500 mg PO BID PRN (Reason: pain) Patient Comments: pt not taking hydrocodone-acetaminophen 7.5-325 mg tablet 1 tab PO Q6H PRN (Reason: pain) 5 Days Qty: 20 0RF Tylenol Ex Str Rapid Release 500 mg Tablet 1,000 mg PO Q6H PRN (Reason: Pain) Migraine Relief 250-250-65 mg Tablet 2 tab PO Q6H PRN (Reason: Migraine Headache) Colace 100 mg capsule 100 mg PO BID PRN (Reason: Constipation) omeprazole 20 mg capsule,delayed release(DR/EC) 20 mg PO DAILY PRN (Reason: Heartburn) ondansetron HCl 4 mg Tablet 4 mg PO Q6H PRN (Reason: Nausea And Vomiting) ibuprofen 200 mg Tablet 800 mg PO Q6H PRN (Reason: Pain) Discharge Orders: Discharge ED (Routine); Ordered 08/06/23 Ordered By: Silverio Dawkins Referrals: Harmony Jerez FNP [Primary Care Provider] - Discharge Diet: Clear Liquid Discharge Activity: Increase activity as tolerated Patient Instructions: Opioid Safety, Pain Management Activity Restrictions/Additional Instructions: Thank you for choosing [facility] for your healthcare needs today. Please realize this is an emergency room and that we are providing you with a medical screening exam and this may not be complete and all inclusive of all the testing and or work up that you may need to determine your ailment or severity of your illness. It is very important that you follow up as instructed or that you return to the Emergency Department should you have concerns or if your condition changes or worsens in any way. You are seen today for recurrent nausea vomiting. Suspect this may be related to the use of medical marijuana recommend decreasing use of concentrated sources. You can use the Ativan and olanzapine as needed to control symptoms. If you have persistent symptoms that are refractory to medications or if you have change in symptoms or develop fever return. He also were noted to have a mild bladder infection for which you were given an oral antibiotic. Sign Out Sign Out Data: Patient Sign Out occurred on 08/06/23 at 06:18. Patient's care was discussed, and care was transferred from José Sullivan DO to Silverio Dawkins DO. Coding Level of Care Code ED Shipboard Intelligence Analyst for Pari Oliver
--- NOTE | 2023-08-06 05:42 | ECG_ITS ---
[facility] Test Date: 2023-08-06 Pat Name: Minoo Mosqueda Department: Room: Gender: Female Topographical Surveyor: : 1985 Requested By: José Sullivan Order Number: [id number] Neptali MD: Tomas Asher M.D. Measurements Intervals [place] Rate: 71 P: 16 [place]: 148 QRS: -11 QRSD: 96 T: 44 QT: 395 QTc: 432 Interpretive Statements SINUS RHYTHM No previous ECG available for comparison Electronically Signed On 08-06-2023 14:01:23 CDT by Tomas Asher M.D. [id number] f
[2023-08-06] MEDS: sodium chloride 0.9% 1,000 ML 999 ML IV ×2 (05:52→06:57)
[2023-08-06] MEDS: metoclopramide 5 mg/mL SDV 2 mL 10 MG IVP (05:52)
[2023-08-06 05:57] LABS: Basophils # 0.1 10^3/uL (0.0-0.1); Basophils % 0.3 %; Eosinophils % 0.1 %; Lymphocytes # 2.4 10^3/uL (0.8-4.8); Lymphocytes % 16.2 %; Mean Corpuscular HGB Conc 33.8 g/dL (30-55); Mean Corpuscular Hemoglobin 29.2 pg (27-33); Mean Corpuscular Volume 86.5 fl (85-98); Mean Platelet Volume 11.8 fL (7.4-10.4); Monocytes # 0.9 10^3/uL (0.2-0.9); Monocytes % 5.9 %; Neutrophils # 11.59 10^3/uL (1.8-7.7); Neutrophils % 77.2 %; Nucleated Red Blood Cells % 0 %; Platelet Count 212 10^3/cmm (157-399); Red Cell Distribution Width 12.5 % (12.1-15.1); White Blood Count 15.02 10^3/uL (3.29-11.43)
[2023-08-06 06:08] LABS: Alanine Aminotransferase 20 U/L (0-33); Albumin Level 4.4 g/dL (3.5-5.2); Alkaline Phosphatase 74 U/L (35-105); Anion Gap 16.7 (5-19); Aspartate Amino Transferase 11 U/L (0-32); Blood Urea Nitrogen 8 mg/dL (6-20); Calcium 9.4 mg/dL (8.5-10.5); Carbon Dioxide 27 mmol/L (22-29); Chloride 100 mmol/L (98-107); Creatinine Clr Calc Pharmacy 222.3517; Globulin 3.4 g/dL (1.3-4.6); Glomerular Filtration Rate 138.8 mL/min (90-130); Glucose 254 mg/dL (65-115); Magnesium 1.7 mg/dL (1.7-2.3); Osmolality Calculated 297 mOsm/kg (285-295); Potassium 3.7 mmol/L (3.5-5.1); Sodium 140 mmol/L (136-145); Total Bilirubin 0.4 mg/dL (0.15-1.2); Total Protein 7.8 g/dL (6.6-8.7)
[2023-08-06 06:08] LABS: Add Urine Microscopic? YES; Bilirubin Urine Neg (Negative); Blood Urine Neg (Negative); Glucose Urine UA 2+ (Normal); Ketones Urine 2+ (Negative); Leukocyte Esterase Urine Negative (Negative); Nitrate Urine Negative (Negative); Protein Urine 1+ (Negative); Specific Gravity, Urine 1.015 (1.005-1.030); Urine Appearance SL Hazy (CLEAR); Urine Color Yellow (Yellow); Urobilinogen Urine Neg (Negative); pH Urine 6.5 (5-7)
[2023-08-06 06:09] LABS: Add Urine Culture? Yes; Bacteria Urine 1+ /hpf; Mucus Urine 2+ /hpf; RBC Urine 0-4 /hpf (0-2); Squamous Epithelial Cell Urine 0-4 /hpf (0-5)
[2023-08-06] MEDS: LORazepam 2 mg/mL INJ 10 mL MDV IV (06:23)
[2023-08-06] MEDS: haloperidol inj 5 mg/mL INJ 1 mL 2.5 MG IVP (06:23)
[2023-08-06] MEDS: cefTRIAXone 1,000 MG in sodium chloride 0.9% (plus) 50 ML 100 MG IV (06:29)
[2023-08-06 06:30] VITALS: BP 164/86; PULSE 72; RESP 16; O2SAT 96
[2023-08-06 06:38] VITALS: BP 164/86; PULSE 71; RESP 16; O2SAT 96
--- NOTE | 2023-08-06 06:55 | PC.PHAR ---
pt states she takes care of her own medications-pt states she hasnt used her basaglar 10 units daily for over a year ext shows last filled 09/16/22 150d/s-pt states she hasnt taken prazosin 5mg and 2mg hs-latuda 60mg daily-lisinopril 10mg daily glimepiride 4mg daily-or hydroxyzine hcl 100mg hs for over a year-pt states she was suppose to have a drs appt today 08/06/23 to get restarted on some of her medications-pt states only taking the medications entered
[2023-08-06 07:00] VITALS: PULSE 78; RESP 23; O2SAT 94
[2023-08-06 07:30] VITALS: PULSE 80; RESP 15; O2SAT 95
== END 2023-08-06 08:32 | disposition home or self-care (01) ==
PROVIDERS: Emergency Medicine; Emergency Provider Family Medicine; PCP Nurse Practitioner Family
DX: R11.2 Nausea with vomiting, unspecified (principal); F12.90 Cannabis use, unspecified, uncomplicated; E11.9 Type 2 diabetes mellitus without complications; F17.210 Nicotine dependence, cigarettes, uncomplicated
CPT/HCPCS: 36415; 80053; 81001; 83735; 85025; 87040; 87077; 87086; 87186; 93005; 96361; 96374; 96375; 99284; J0696; J1630; J2060; J2765; J7030

== ENCOUNTER 2023-08-09 14:27 | Emergency (ER) | payer MEDICARE, SELFPAY ==
[2023-08-09 14:27] VITALS: BP 187/127; PULSE 63; RESP 18; TEMP 36.8; O2SAT 97; BMI 41.3
--- NOTE | 2023-08-09 14:33 | ECG_ITS ---
[facility] Test Date: 2023-08-09 Pat Name: Minoo Mosqueda Department: Room: Gender: Female Staff Educator: : 1985 Requested By: Jacob Felton Order Number: [id number] Neptali MD: Arcenio Black M.D. Measurements Intervals [place] Rate: 70 P: -1 [place]: 141 QRS: -34 QRSD: 91 T: 53 QT: 393 QTc: 425 Interpretive Statements SINUS RHYTHM LEFT AXIS DEVIATION [QRS AXIS < -30] PATTERN CONSISTENT WITH PULMONARY DISEASE Compared to ECG 08/06/2023 05:36:34 Left-axis deviation now present Electronically Signed On 08-10-2023 13:17:08 CDT by Arcenio Black M.D. [id number]
[2023-08-09 15:02] VITALS: BP 209/100; PULSE 67; RESP 18; O2SAT 98
[2023-08-09 15:17] LABS: Basophils % 0.3 %; Eosinophils # 0.1 10^3/uL (0.0-0.8); Eosinophils % 0.6 %; Lymphocytes # 1.6 10^3/uL (0.8-4.8); Lymphocytes % 11.6 %; Mean Corpuscular HGB Conc 33.9 g/dL (30-55); Mean Corpuscular Hemoglobin 28.9 pg (27-33); Mean Corpuscular Volume 85.3 fl (85-98); Mean Platelet Volume 11.2 fL (7.4-10.4); Monocytes # 0.5 10^3/uL (0.2-0.9); Monocytes % 3.6 %; Neutrophils # 11.74 10^3/uL (1.8-7.7); Neutrophils % 83.5 %; Nucleated Red Blood Cells % 0 %; Platelet Count 193 10^3/cmm (157-399); Red Blood Count 5.39 10^6/uL (3.85-5.65); Red Cell Distribution Width 12.1 % (12.1-15.1); White Blood Count 14.04 10^3/uL (3.29-11.43)
[2023-08-09 15:32] LABS: Add Urine Microscopic? NO; Charge for UA Resulting for Rev
[2023-08-09 15:36] LABS: Bilirubin Urine Neg (Negative); Blood Urine Neg (Negative); Glucose Urine UA 4+ (Normal); HCG Qualitative Urine. Negative (Negative); Ketones Urine 2+ (Negative); Leukocyte Esterase Urine Negative (Negative); Nitrate Urine Negative (Negative); Protein Urine Neg (Negative); Urine Appearance Clear (CLEAR); Urine Color Dark Yellow (Yellow); Urobilinogen Urine Norm (Negative); pH Urine 5 (5-7)
[2023-08-09 15:37] LABS: Alanine Aminotransferase 26 U/L (0-33); Albumin Level 4.2 g/dL (3.5-5.2); Alkaline Phosphatase 73 U/L (35-105); Anion Gap 18.8 (5-19); Aspartate Amino Transferase 13 U/L (0-32); Blood Urea Nitrogen 9 mg/dL (6-20); Calcium 9.1 mg/dL (8.5-10.5); Carbon Dioxide 23 mmol/L (22-29); Chloride 102 mmol/L (98-107); Globulin 3.3 g/dL (1.3-4.6); Glomerular Filtration Rate 179.6 mL/min (90-130); Glucose 269 mg/dL (65-115); Osmolality Calculated 298 mOsm/kg (285-295); Potassium 3.8 mmol/L (3.5-5.1); Sodium 140 mmol/L (136-145); Total Bilirubin 0.4 mg/dL (0.15-1.2); Total Protein 7.5 g/dL (6.6-8.7)
[2023-08-09 15:39] LABS: Creatinine Clr Calc Pharmacy 275.1818
[2023-08-09 15:48] LABS: Amphetamines Screen Urine Negative (Negative); Barbiturates Screen Urine Negative (Negative); Benzodiazepines Screen Urine Positive (Negative); Cocaine Screen Urine Negative (Negative); Opiate Screen Urine Negative (Negative); PCP Screen Urine Negative (Negative); THC Screen Urine Positive (Negative)
[2023-08-09] MEDS: haloperidol inj 5 mg/mL INJ 1 mL IVP (15:50)
[2023-08-09 15:55] VITALS: BP 164/104; PULSE 63; RESP 16; O2SAT 98
--- NOTE | 2023-08-09 15:56 | ED_ITS ---
HPI - Nausea/Vomiting/Diarrhea 2 General: Chief complaint: Nausea/Vomiting/Diarrhea Stated complaint: N/V Time Seen by Provider: 08/09/23 15:00 History of Present Illness: 38-year-old female presents emergency de partment with complaints of abdominal cramping. She states she has had multiple episodes of cyclical nausea and vomiting. She states that she has been seen for the same thing multiple times and has been diagnosed with cannabis hyperemesis syndrome. She states she was recently seen and diagnosed with urinary tract infection and also provided antibiotics at that time. She states she is unable to keep anything down since she did smoke marijuana. There is a significant correlation between her marijuana use and her cyclical nausea and vomiting and she states that the abdominal cramping/pain is slightly relieved by hot showers. She was recently seen here in the emergency department on 08/06/23 and again diagnosed with cannabinoid induced hyperemesis syndrome. She did have her appendix out approximately 2 weeks ago and has been doing well since that time. Associated nausea: Yes Associated symtoms: Reports nausea Review of Systems 2 General: Reports: 10 or more systems reviewed and unremarkable except in HPI and below GI: Reports: abdominal pain, nausea and vomiting [facility] ED 2 PFS: Medical History Bipolar II disorder DM type 2 (diabetes mellitus, type 2) Social History Smoking and tobacco/nicotine status: current every day tobacco/nicotine user cigarettes Packs smoked per day: 1 Years cigarettes smoked: 14 Quit status (tobacco/nicotine): has tried quititng Number of times tried to quit tobacco: 2 Second hand smoke exposure: Yes Substance/Drug Use: current Substance/Drug use frequency: daily Physical Exam 2 Narrative: EXAM NARRATIVE: Constitutional: the patient appears well nourished and of normal development. Vital signs as documented. No acute distress at present. Alert and oriented-to person, place, time and situation. Head, eyes, ears, nose, mouth, throat: Normocephalic, atraumatic. Pupils-equal, round, reactive to light. No scleral icterus. Normal-appearing external ears. Normal appearing nasal turbinates, no drainage. No obvious oral lesions, posterior oropharynx without erythema or exudates. Neck: Supple, trachea is midline, no lymphadenopathy, no jugular venous distension, thyromegaly, or carotid bruits. Carotid upstrokes are brisk bilaterally. Lungs: clear to auscultation to all lung siu. Symmetrical rise and fall of chest, no obvious signs of increased work of breathing at present. Cardiac: Regular rate and rhythm, positive S1, S2. No murmurs, rubs or gallops that I can appreciate Abdomen: Soft, non-tender to palpation, normal active bowel sounds to all quadrants. No palpable masses, no organomegaly and abdominal bruits. Extremities: 2+ pulses in the upper extremities that are equal bilaterally, 2+ pulses in the lower extremities that are equal bilaterally. Non-edematous. Moves all extremities well, sensation to all extremities are noted. Skin: Warm, dry, intact. Course 2 Vital Signs: Vital signs: Vital Signs Temperature 98.3 F 08/09/23 14:27 Pulse Rate 67 08/09/23 15:02 Respiratory Rate 18 08/09/23 15:02 Blood Pressure 209/100 08/09/23 15:02 Pulse Oximetry 98 08/09/23 15:02 Oxygen Delivery Me thod Room Air 08/09/23 15:02 MDM - Nausea/Vomiting/Diarrhea Medical Decision Making Physical exam completed and document I did obtain a CBC which demonstrated elevated white blood cell count at 14.4 I suspect this is most likely reactive secondary to her recurrent hyperemesis syndrome and recurring/chronic marijuana use. I did encourage her to continue to take her antibiotics as prescribed and abstain from marijuana use. I did provide the patient extensive handout regarding the pathophysiology as well as treatment and also provide the patient Haldol intravenously with complete resolution of her nausea and vomiting. Medical Records I reviewed the patient's medical records. Lab Data I reviewed the patient's lab results. 08/09/23 15:09 08/09/23 15:09 Laboratory Results WBC 14.04 10^3/uL (3.29-11.43) H 08/09/23 15:09 RBC 5.39 10^6/uL (3.85-5.65) 08/09/23 15:09 Hgb 15.60 g/dL (11.27-16.99) 08/09/23 15:09 Hct 46.0 % (36-47) 08/09/23 15:09 MCV 85.3 fl (85-98) 08/09/23 15:09 MCH 28.9 pg (27-33) 08/09/23 15:09 MCHC 33.9 g/dL (30-55) 08/09/23 15:09 RDW 12.1 % (12.1-15.1) 08/09/23 15:09 Plt Count 193 10^3/cmm (157-399) 08/09/23 15:09 MPV 11.2 fL (7.4-10.4) H 08/09/23 15:09 Neut % (Auto) 83.5 % 08/09/23 15:09 Lymph % (Auto) 11.6 % 08/09/23 15:09 [place] % (Auto) 3.6 % 08/09/23 15:09 Eos % (Auto) 0.6 % 08/09/23 15:09 Baso % (Auto) 0.3 % 08/09/23 15:09 Neut # (Auto) 11.74 10^3/uL (1.8-7.7) H 08/09/23 15:09 Lymph # (Auto) 1.6 10^3/uL (0.8-4.8) 08/09/23 15:09 [place] # (Auto) 0.5 10^3/uL (0.2-0.9) 08/09/23 15:09 Eos # (Auto) 0.1 10^3/uL (0.0-0.8) 08/09/23 15:09 Baso # (Auto) 0.0 10^3/uL (0.0-0.1) 08/09/23 15:09 Nucleated RBC % (auto) 0 % 08/09/23 15:09 Nucleated RBCs # 0.0 /100WBC 08/09/23 15:09 Sodium 140 mmol/L (136-145) 08/09/23 15:09 Potassium 3.8 mmol/L (3.5-5.1) 08/09/23 15:09 Chloride 102 mmol/L (98-107) 08/09/23 15:09 Carbon Dioxide 23 mmol/L (22-29) 08/09/23 15:09 Anion Gap 18.8 (5-19) 08/09/23 15:09 BUN 9 mg/dL (6-20) 08/09/23 15:09 Creatinine 0.4 mg/dL (0.5-0.9) L 08/09/23 15:09 GFR Calculation 179.6 mL/min (90-130) H 08/09/23 15:09 Glucose 269 mg/dL (65-115) H 08/09/23 15:09 Calculated Osmolality 298 mOsm/kg (285-295) H 08/09/23 15:09 Calcium 9.1 mg/dL (8.5-10.5) 08/09/23 15:09 Total Bilirubin 0.4 mg/dL (0.15-1.2) 08/09/23 15:09 AST 13 U/L (0-32) 08/09/23 15:09 ALT 26 U/L (0-33) 08/09/23 15:09 Alkaline Phosphatase 73 U/L (35-105) 08/09/23 15:09 Total Protein 7.5 g/dL (6.6-8.7) 08/09/23 15:09 Albumin 4.2 g/dL (3.5-5.2) 08/09/23 15:09 Globulin 3.3 g/dL (1.3-4.6) 08/09/23 15:09 HCG, Qual Negative (Negative) 08/09/23 15:14 Urine Color Dark yellow (Yellow) 08/09/23 15:14 Urine Appearance Clear (CLEAR) 08/09/23 15:14 Urine pH 5 (5-7) 08/09/23 15:14 Ur Specific [place] 1.030 (1.005-1.030) 08/09/23 15:14 Urine Protein Neg (Negative) 08/09/23 15:14 Urine Glucose (UA) 4+ (Normal) H 08/09/23 15:14 Urine Ketones 2+ (Negative) H 08/09/23 15:14 Urine Blood Neg (Negative) 08/09/23 15:14 Urine Nitrate Negative (Negative) 08/09/23 15:14 Urine Bilirubin Neg (Negative) 08/09/23 15:14 Urine Urobilinogen Norm mg/dL (Negative) 08/09/23 15:14 Ur Leukocyte Esterase Negative (Negative) 08/09/23 15:14 Urine Opiates Screen Negative ng/mL (Negative) 08/09/23 15:14 Ur Barbiturates Screen Negative ng/mL (Negative) 08/09/23 15:14 Ur Phencyclidine Scrn Negative ng/mL (Negative) 08/09/23 15:14 Ur Amphetamines Screen Negative ng/mL (Negative) 08/09/23 15:14 U Benzodiazepines Scrn Positive ng/mL (Negative) H 08/09/23 15:14 Urine Cocaine Screen Negative ng/mL (Negative) 08/09/23 15:14 U Marijuana (THC) Screen Positive ng/mL (Negative) H 08/09/23 15:14 No radiology studies performed this visit Discharge Plan Discharge Patient Disposition: Home Clinical Impression: Cannabis hyperemesis syndrome concurrent with and due to cannabis abuse Condition: Stable Prescriptions: No Action Naprosyn 500 mg tablet 500 mg PO BID PRN (Reason: pain) Patient Comments: pt not taking hydrocodone-acetaminophen 7.5-325 mg tablet 1 tab PO Q6H PRN (Reason: pain) 5 Days Qty: 20 0RF Tylenol Ex Str Rapid Release 500 mg Tablet 1,000 mg PO Q6H PRN (Reason: Pain) Migraine Relief 250-250-65 mg Tablet 2 tab PO Q6H PRN (Reason: Migraine Headache) Colace 100 mg capsule 100 mg PO BID PRN (Reason: Constipation) omeprazole 20 mg capsule,delayed release(DR/EC) 20 mg PO DAILY PRN (Reason: Heartburn) Ativan 2 mg tablet 2 mg buccal Q6H PRN (Reason: nausea and vomiting) Qty: 14 0RF olanzapine 10 mg tablet,disintegrating 10 mg PO Q6H PRN (Reason: nausea and vomiting) Qty: 14 0RF Macrobid 100 mg capsule 100 mg PO BID 7 Days Qty: 14 0RF Rx Instructions: must administer with a meal/food ondansetron HCl 4 mg Tablet 4 mg PO Q6H PRN (Reason: Nausea And Vomiting) ibuprofen 200 mg Tablet 800 mg PO Q6H PRN (Reason: Pain) Discharge Orders: Discharge ED (Routine); Ordered 08/09/23 Ordered By: Dimas Gotti Referrals: Harmony Jerez FNP [Primary Care Provider] - Discharge Diet: Usual diet Discharge Activity: Resume usual activity Patient Instructions: Opioid Safety, Pain Management Activity Restrictions/Additional Instructions: Activity Restrictions/Additional Instructions: Thank you for choosing [facility] for your healthcare needs today. Please realize that you were seen in the Emergency Department and that we are providing you with an emergency medical screening exam and this may not be a complete and all inclusive of all the testing and or medical work-up that you may need to determine your ailment or severity of your illness. It is very important that you follow-up as instructed with your Primary care provider or Specialist for additional evaluation and to discuss your medical treatment plan. Coding Level of Care Code ED Wrist Hemmer for Pari Oliver
[2023-08-09] MEDS: LORazepam 2 mg/mL INJ 10 mL MDV 1 MG IVP (16:35)
== END 2023-08-09 16:52 | disposition home or self-care (01) ==
PROVIDERS: Emergency Provider Internal Medicine; PCP Nurse Practitioner Family
DX: R11.2 Nausea with vomiting, unspecified (principal); F12.10 Cannabis abuse, uncomplicated; E11.9 Type 2 diabetes mellitus without complications; F17.210 Nicotine dependence, cigarettes, uncomplicated
CPT/HCPCS: 80053; 80306; 81003; 81025; 85025; 93005; 96374; 96375; 99284; J1630; J2060

== ENCOUNTER 2024-02-18 15:33 | Outpatient (CLI) | payer MEDICARE, SELFPAY ==
--- NOTE | 2024-02-18 15:38 | XR_ITS ---
WS: [id number] Right hip, AP and frog-leg views, 02/18/2024 Clinical Data: RIGHT HIP PAIN Comparison: None. Findings: No fractures or dislocations are seen. The hip joint is intact. The soft tissues are not remarkable. The adjacent pelvis is normal. XR/XR hip RT 2-3V wo/w pel* [id number] Impression: Negative right hip. Tonnis classification: grade 0: normal radiographs
== END 2024-02-18 15:34 | disposition home or self-care (01) ==
LOC: RAD 15:34
PROVIDERS: PCP Nurse Practitioner Family; Visit Provider Nurse Practitioner Family
DX: M25.551 Pain in right hip (principal)
CPT/HCPCS: 73502

== ENCOUNTER 2024-04-07 12:27 | Outpatient (CLI) | payer MEDICARE, SELFPAY ==
--- NOTE | 2024-04-07 12:32 | XRR_ITS ---
PROCEDURE INFORMATION: Exam: XR Cervical Spine Exam date and time: 04/07/2024 12:47 PM Age: 38 years old Clinical indication: Cervicalgia; Patient HX: HX of bone cancer; Posterior neck pain that radiates down both arms into fingers x 6 mo, numbness and tingling; Additional info: Bilateral arm pain/hand numbness/neck pain/cervicalgia TECHNIQUE: Imaging protocol: Radiologic exam of the cervical spine. Views: 6 or more views. COMPARISON: NM bone scan whole body* [id number] 05/03/2019 12:22 PM FINDINGS: Bones/joints: Normal. No acute fracture. Normal alignment. No abnormal motion with flexion or extension. Soft tissues: Unremarkable. XR/XR cervical spine min 6V [id number] IMPRESSION: The findings are normal.
== END 2024-04-07 12:28 | disposition home or self-care (01) ==
LOC: RAD 12:28
PROVIDERS: PCP Nurse Practitioner Family; Visit Provider Nurse Practitioner Family
DX: M79.601 Pain in right arm (principal); R20.0 Anesthesia of skin; M54.2 Cervicalgia
CPT/HCPCS: 72052

== ENCOUNTER 2024-06-09 11:45 | Emergency (ER) | payer MEDICARE, SELFPAY ==
[2024-06-09 11:49] VITALS: BP 164/89; PULSE 66; RESP 16; TEMP 37.1; O2SAT 98; BMI 41.3
[2024-06-09 13:48] LABS: Basophils % 0.2 %; Hematocrit 47.9 % (36-47); Lymphocytes # 2.8 10^3/uL (0.8-4.8); Lymphocytes % 13.9 %; Mean Corpuscular HGB Conc 33.6 g/dL (30-55); Mean Corpuscular Hemoglobin 28.5 pg (27-33); Mean Corpuscular Volume 84.9 fl (85-98); Mean Platelet Volume 11.8 fL (7.4-10.4); Monocytes # 1.3 10^3/uL (0.2-0.9); Monocytes % 6.5 %; Neutrophils # 15.84 10^3/uL (1.8-7.7); Neutrophils % 77.8 %; Nucleated Red Blood Cells % 0 %; Platelet Count 213 10^3/cmm (157-399); Red Blood Count 5.64 10^6/uL (3.85-5.65); Red Cell Distribution Width 13.2 % (12.1-15.1); White Blood Count 20.36 10^3/uL (3.29-11.43)
--- NOTE | 2024-06-09 13:53 | CT_ITS ---
WS: [id number] CT ABDOMEN AND PELVIS WITH CONTRAST HISTORY: abd pain, RIGHT abdominal pain TECHNIQUE: Imaging performed of the abdomen and pelvis with IV contrast. Single phase imaging of the abdomen. Coronal and sagittal reformats are submitted. All CT scans at [facility] use at least one of these dose optimization techniques: automated exposure control; mA and/or kV adjustment per patient size (includes targeted exams where dose is matched to clinical indication); or iterative reconstruction. IV CONTRAST: Omnipaque 350; 100 mL IV. Oral contrast: No DLP: 1188.13 mGy.cm COMPARISON: 07/22/2023 Lower thorax: Lung bases are clear. Heart is normal size. Small hiatal hernia. Liver/biliary system: Normal size liver with focal fatty sparing along the falciform ligament. Normal portal vein. Gallbladder: Normal. No gallstones or wall thickening. No pericholecystic fluid. Pancreas: Normal size pancreas and pancreatic duct. No adjacent inflammation. Spleen: Normal size spleen. No mass or infarct. Adrenal glands: Normal. Right kidney: Normal. Left kidney: Normal. Aorta: Normal. Lymphadenopathy: None. Free fluid: None. GI tract: Prior appendectomy. No colitis or obstruction. Small amount of increased fluid in the stomach and liquid feces in the RIGHT colon. No colitis. Abdominal wall: Unremarkable abdominal wall. No hernia. Pelvis: No free fluid or adenopathy within the pelvis. RIGHT ovarian corpus luteum cyst. Bones: Unremarkable. CT/CT abdomen pelvis w con* [id number] IMPRESSION: 1. Slight increased fluid in the stomach and RIGHT colon liquid feces. Conside r mild gastroenteritis. 2. No renal obstruction or perinephric stranding. 3. Prior appendectomy. 4. No ascites or free air.
[2024-06-09 14:00] VITALS: BP 152/78; PULSE 72; O2SAT 96
[2024-06-09 14:01] LABS: HCG, Serum Qual Negative (Negative)
[2024-06-09 14:06] LABS: Alanine Aminotransferase 13 U/L (0-33); Albumin Level 4.4 g/dL (3.5-5.2); Alkaline Phosphatase 80 U/L (35-105); Anion Gap 18.5 (5-19); Aspartate Amino Transferase 9 U/L (0-32); Blood Urea Nitrogen 10 mg/dL (6-20); Calcium 9.3 mg/dL (8.5-10.5); Carbon Dioxide 25 mmol/L (22-29); Chloride 96 mmol/L (98-107); Creatinine Clr Calc Pharmacy 275.1818; Globulin 3.5 g/dL (1.3-4.6); Glomerular Filtration Rate 179.6 mL/min (90-130); Glucose 297 mg/dL (65-115); Lipase 25 U/L (13-60); Osmolality Calculated 292 mOsm/kg (285-295); Potassium 3.5 mmol/L (3.5-5.1); Sodium 136 mmol/L (136-145); Total Bilirubin 0.4 mg/dL (0.15-1.2); Total Protein 7.9 g/dL (6.6-8.7)
--- NOTE | 2024-06-09 14:15 | W.ED.NAVMDI ---
HPI - Nausea/Vomiting/Diarrhea General: Chief complaint: Nausea/Vomiting/Diarrhea Stated complaint: vomitting Time Seen by Provider: 06/09/24 13:49 Source: patient Mode of arrival: ambulatory Limitations: no limitations History of Present Illness: 38-year-old female who states she has been having nausea vomiting along with abdominal pain since yesterday. She has had a history of cyclical vomiting in the past but states she no longer uses marijuana states she has had multiple episodes of vomiting is not been able to tolerate any p.o.'s having cramping abdominal pain she denies any fevers denies any worse improved factors. Associated nausea: Yes Associated symtoms: Reports nausea; Denies chest pain, dysuria or headache(s) Related Data Home Medications ?Medication ?Instructions ?Recorded ?Confirmed glimepiride 4 mg tablet 4 mg PO DAILY 06/09/24 06/09/24 multivitamin 1 tab PO QAM 06/09/24 06/09/24 sucralfate 1 gram tablet 1 g PO QID 06/09/24 06/09/24 Previous Rx's ?Medication ?Instructions ?Recorded ondansetron 4 mg disintegrating 4 mg PO Q6H PRN nausea and 06/09/24 tablet vomiting #14 tabs Allergies Allergy/AdvReac Type Severity Reaction Status Date / Time sumatriptan (From Imitrex) Allergy Severe Throat Verified 06/09/24 11:52 swells shut trazodone AdvReac Severe Psychosis Verified 06/09/24 11:52 doxycycline AdvReac Intermediate Rash Verified 06/09/24 11:52 verapamil AdvReac Intermediate Rash Verified 06/09/24 11:52 Review of Systems Const: Denies: fever(s), chills, body aches or change in appetite ENMT: Denies: throat pain or dental pain Card: Denies: chest pain Resp: Denies: dyspnea GI: Reports: abdominal pain, nausea and vomiting; Denies: diarrhea : Denies: dysuria Musc: Denies: neck pain or back pain Skin/Breast: Denies: rash Neuro: Denies: headache(s) PFS ED PFSH: Medical History Bipolar II disorder DM type 2 (diabetes mellitus, type 2) Surgical History History of laparoscopic appendectomy 07/16/23 Dr Bush Social History Smoking and tobacco/nicotine status: current every day tobacco/nicotine user cigarettes Packs smoked per day: 1 Years cigarettes smoked: 14 Quit status (tobacco/nicotine): has tried quititng Number of times tried to quit tobacco: 2 Second hand smoke exposure: Yes Substance/Drug Use: current Substance/Drug use frequency: daily Female Reproductive History: Date of last menstrual period: 04/03/24 Physical Exam Const: COMMON NORMALS: no acute distress, patient oriented x3 and healthy appearing HENMT: COMMON NORMALS: normocephalic and atraumatic HEAD & SCALP: normocephalic and atraumatic Eye: COMMON NORMALS: conjunctivae normal CONJUNCTIVA: Yes conjunctivae normal Neck/C-Spine: COMMON NORMALS: full ROM and supple Chest: COMMONS NORMALS: normal inspection of the chest and normal palpation of entire chest wall Resp: COMMON NORMALS: normal respiratory effort, No retractions, No use of accessory muscles and clear to auscultation bilaterally AUSCULTATION: clear to auscultation bilaterally Cardio: COMMON NORMALS: regular rate, regular rhythm and No murmurs present (Cardio) RATE: regular rate RHYTHM: regular rhythm GI: COMMON NORMALS: Normal to inspection, nondistended, normoactive bowel sounds present, Soft to palpation, non-tender and no masses PALPATION: Yes Soft to palpation Extremity: COMMON NORMALS: normal to inspection and full ROM Neuro: COMMON NORMALS: patient oriented x3, moves all extremities and no focal motor deficits Psych: COMMON NORMALS: mental status grossly normal, Normal thought process present and cooperative THOUGHT PROCESS: Normal thought process present Skin: COMMON NORMALS: no rashes or lesions noted and no wounds GENERAL SKIN EXAM: no rashes or lesions noted Course Vital Signs: Vital signs: Vital Signs Temperature 98.7 F 06/09/24 11:49 Pulse Rate 72 06/09/24 14:00 Respiratory Rate 16 06/09/24 11:49 Blood Pressure 152/78 06/09/24 14:00 Pulse Oximetry 96 06/09/24 14:00 Oxygen Delivery Me thod Room Air 06/09/24 14:00 MDM - Nausea/Vomiting/Diarrhea Medical Decision Making Patient presents with vomiting her blood work including CAT scan here are normal she feels much improved here after IV nausea medicine IV fluids she has been able to tolerate p.o. will prescribe her Zofran for home she is to follow-up with PCP and return for worsening she understands agrees to plan Medical Records I reviewed the patient's medical records. Lab Data I reviewed the patient's lab results. 06/09/24 13:39 06/09/24 13:39 Radiology Impressions Abdomen/Pelvis CT 06/09/24 13:53 IMPRESSION: 1. Slight increased fluid in the stomach and RIGHT colon liquid feces. Consider mild gastroenteritis. 2. No renal obstruction or perinephric stranding. 3. Prior appendectomy. 4. No ascites or free air. Laboratory Results WBC 20.36 10^3/uL (3.29-11.43) H 06/09/24 13:39 RBC 5.64 10^6/uL (3.85-5.65) 06/09/24 13:39 Hgb 16.10 g/dL (11.27-16.99) 06/09/24 13:39 Hct 47.9 % (36-47) H 06/09/24 13:39 MCV 84.9 fl (85-98) L 06/09/24 13:39 MCH 28.5 pg (27-33) 06/09/24 13:39 MCHC 33.6 g/dL (30-55) 06/09/24 13:39 RDW 13.2 % (12.1-15.1) 06/09/24 13:39 Plt Count 213 10^3/cmm (157-399) 06/09/24 13:39 MPV 11.8 fL (7.4-10.4) H 06/09/24 13:39 Neut % (Auto) 77.8 % 06/09/24 13:39 Lymph % (Auto) 13.9 % 06/09/24 13:39 [place] % (Auto) 6.5 % 06/09/24 13:39 Eos % (Auto) 0.0 % 06/09/24 13:39 Baso % (Auto) 0.2 % 06/09/24 13:39 Neut # (Auto) 15.84 10^3/uL (1.8-7.7) H 06/09/24 13:39 Lymph # (Auto) 2.8 10^3/uL (0.8-4.8) 06/09/24 13:39 [place] # (Auto) 1.3 10^3/uL (0.2-0.9) H 06/09/24 13:39 Eos # (Auto) 0.0 10^3/uL (0.0-0.8) 06/09/24 13:39 Baso # (Auto) 0.0 10^3/uL (0.0-0.1) 06/09/24 13:39 Nucleated RBC % (auto) 0 % 06/09/24 13:39 Nucleated RBCs # 0.0 /100WBC 06/09/24 13:39 Sodium 136 mmol/L (136-145) 06/09/24 13:39 Potassium 3.5 mmol/L (3.5-5.1) 06/09/24 13:39 Chloride 96 mmol/L (98-107) L 06/09/24 13:39 Carbon Dioxide 25 mmol/L (22-29) 06/09/24 13:39 Anion Gap 18.5 (5-19) 06/09/24 13:39 BUN 10 mg/dL (6-20) 06/09/24 13:39 Creatinine 0.4 mg/dL (0.5-0.9) L 06/09/24 13:39 GFR Calculation 179.6 mL/min (90-130) H 06/09/24 13:39 Glucose 297 mg/dL (65-115) H 06/09/24 13:39 Calculated Osmolality 292 mOsm/kg (285-295) 06/09/24 13:39 Calcium 9.3 mg/dL (8.5-10.5) 06/09/24 13:39 Total Bilirubin 0.4 mg/dL (0.15-1.2) 06/09/24 13:39 AST 9 U/L (0-32) 06/09/24 13:39 ALT 13 U/L (0-33) 06/09/24 13:39 Alkaline Phosphatase 80 U/L (35-105) 06/09/24 13:39 Total Protein 7.9 g/dL (6.6-8.7) 06/09/24 13:39 Albumin 4.4 g/dL (3.5-5.2) 06/09/24 13:39 Globulin 3.5 g/dL (1.3-4.6) 06/09/24 13:39 Lipase 25 U/L (13-60) 06/09/24 13:39 HCG, Qual Negative (Negative) 06/09/24 13:39 Urine Color Yellow (Yellow) 06/09/24 14:30 Urine Appearance Clear (CLEAR) 06/09/24 14:30 Urine pH 6.5 (5-7) 06/09/24 14:30 Ur Specific [place] 1.036 (1.005-1.030) H 06/09/24 14:30 Urine Protein 2+ (Negative) A 06/09/24 14:30 Urine Glucose (UA) 1+ (Normal) H 06/09/24 14:30 Urine Ketones 3+ (Negative) H 06/09/24 14:30 Urine Blood Negative (Negative) 06/09/24 14:30 Urine Nitrate Negative (Negative) 06/09/24 14:30 Urine Bilirubin Negative (Negative) 06/09/24 14:30 Urine Urobilinogen 1.0 mg/dL (Negative) 06/09/24 14:30 Ur Leukocyte Esterase Negative (Negative) 06/09/24 14:30 Urine RBC 0-2 /hpf (0-2) 06/09/24 14:30 Urine WBC 0-5 /hpf (0-5) 06/09/24 14:30 Ur Squamous Epith Cells 0-5 /hpf (0-5) 06/09/24 14:30 Amorphous Sediment Not Reportable 06/09/24 14:30 Urine Bacteria 4+ /hpf (NONE) H 06/09/24 14:30 Hyaline Casts 0.40 /lpf 06/09/24 14:30 Coronavirus (PCR) Negative (Negative) 06/09/24 14:30 Influenza A (PCR) Negative (Negative) 06/09/24 14:30 Influenza Type B (PCR) Negative (Negative) 06/09/24 14:30 RSV (PCR) Negative (Negative) 06/09/24 14:30 All radiology interpretation(s) finalized by discharge Discharge Plan Discharge Patient Disposition: Home Clinical Impression: Vomiting Condition: Stable Prescriptions: New ondansetron 4 mg tablet,disintegrating 4 mg PO Q6H PRN (Reason: nausea and vomiting) Qty: 14 0RF No Action sucralfate 1 gram tablet 1 g PO QID glimepiride 4 mg tablet 4 mg PO DAILY multivitamin Tablet 1 tab PO QAM Discharge Orders: Discharge ED (Routine); Ordered 06/09/24 Ordered By: Jacob Felton Referrals: Marcella Jackson [employer] [Primary Care Provider] - 4-7 days Discharge Diet: Advance as tolerated Discharge Activity: Resume usual activity Patient Instructions: Acute Nausea and Vomiting (ED) Print Language: Serbian Coding Level of Care Code ED [employer] for Pari Oliver
[2024-06-09] MEDS: sodium chloride 0.9% 1,000 ML 999 ML IV (14:23)
[2024-06-09] MEDS: diphenhydrAMINE 50 mg/mL SDV 1mL IVP (14:24)
[2024-06-09] MEDS: metoclopramide 5 mg/mL SDV 2 mL 10 MG IVP (14:24)
[2024-06-09 14:39] LABS: Bilirubin Urine Negative (Negative); Blood Urine Negative (Negative); Glucose Urine UA 1+ (Normal); Ketones Urine 3+ (Negative); Leukocyte Esterase Urine Negative (Negative); Nitrate Urine Negative (Negative); Protein Urine 2+ (Negative); Urine Appearance Clear (CLEAR); Urine Color Yellow (Yellow); pH Urine 6.5 (5-7)
--- NOTE | 2024-06-09 14:44 | PC.PHAR ---
Pt states only takes Carafate 1g qid , multivitamin, and Glimepiride 4mg daily. Pt had several medications on her list that she no longer takes: Ativan 2mg, Olanzapine 10mgOmeprazole 20mg, Zofran 4mg, and Flexeril 10mg-were all removed from chart.
[2024-06-09 14:45] LABS: Add Urine Microscopic? YES; Bacteria Urine 4+ /hpf; RBC Urine 0-2 /hpf (0-2); Squamous Epithelial Cell Urine 0-5 /hpf (0-5); WBC Urine 0-5 /hpf (0-5)
[2024-06-09 14:48] LABS: Specific Gravity, Urine 1.036 (1.005-1.030)
[2024-06-09] MEDS: iohexol 350 mg/mL 500 mL Btl (per mL) IV (14:53)
[2024-06-09 15:16] LABS: Covid PCR NEGATIVE (Negative); Influenza A NEGATIVE (Negative); Influenza B NEGATIVE (Negative); Respiratory Syncytial Virus Ce NEGATIVE (Negative)
[2024-06-09 15:40] VITALS: BP 175/96; PULSE 62; O2SAT 99
== END 2024-06-09 15:42 | disposition home or self-care (01) ==
PROVIDERS: Emergency Provider Emergency Medicine; PCP Nurse Practitioner Family
DX: R11.10 Vomiting, unspecified (principal); Z11.52 Encounter for screening for COVID-19; F17.210 Nicotine dependence, cigarettes, uncomplicated; E11.9 Type 2 diabetes mellitus without complications
CPT/HCPCS: 36415; 74177; 80053; 81001; 83690; 84703; 85025; 87637; 96361; 96374; 96375; 99285; J1200; J2765; J7030

== ENCOUNTER 2024-06-10 14:44 | Emergency (ER) | payer MEDICARE, SELFPAY ==
[2024-06-10 15:07] VITALS: BP 134/89; PULSE 65; RESP 16; TEMP 36.9; O2SAT 98
[2024-06-10 16:23] VITALS: BP 127/73; PULSE 65; O2SAT 97
[2024-06-10 17:27] LABS: Basophils # 0.1 10^3/uL (0.0-0.1); Basophils % 0.5 %; Eosinophils % 0.1 %; Hematocrit 46.8 % (36-47); Lymphocytes # 4.1 10^3/uL (0.8-4.8); Lymphocytes % 28.8 %; Mean Corpuscular HGB Conc 32.5 g/dL (30-55); Mean Corpuscular Hemoglobin 27.8 pg (27-33); Mean Corpuscular Volume 85.7 fl (85-98); Mean Platelet Volume 11.8 fL (7.4-10.4); Monocytes # 0.9 10^3/uL (0.2-0.9); Monocytes % 6.6 %; Neutrophils # 9.13 10^3/uL (1.8-7.7); Neutrophils % 63.8 %; Nucleated Red Blood Cells % 0 %; Platelet Count 192 10^3/cmm (157-399); Red Blood Count 5.46 10^6/uL (3.85-5.65); Red Cell Distribution Width 13.1 % (12.1-15.1); White Blood Count 14.31 10^3/uL (3.29-11.43)
[2024-06-10 17:36] LABS: HCG, Serum Qual Negative (Negative)
[2024-06-10 17:44] LABS: Alanine Aminotransferase 13 U/L (0-33); Albumin Level 4.3 g/dL (3.5-5.2); Alkaline Phosphatase 69 U/L (35-105); Anion Gap 12.7 (5-19); Aspartate Amino Transferase 8 U/L (0-32); Blood Urea Nitrogen 8 mg/dL (6-20); Calcium 9.3 mg/dL (8.5-10.5); Carbon Dioxide 31 mmol/L (22-29); Chloride 96 mmol/L (98-107); Creatinine Clr Calc Pharmacy 220.1454; Glomerular Filtration Rate 138.8 mL/min (90-130); Glucose 215 mg/dL (65-115); Lipase 44 U/L (13-60); Osmolality Calculated 287 mOsm/kg (285-295); Potassium 3.7 mmol/L (3.5-5.1); Sodium 136 mmol/L (136-145); Total Bilirubin 0.4 mg/dL (0.15-1.2); Total Protein 7.3 g/dL (6.6-8.7)
[2024-06-10 19:30] VITALS: BP 212/126; PULSE 63; RESP 16; O2SAT 96
[2024-06-10 19:40] LABS: Bilirubin Urine Negative (Negative); Blood Urine Negative (Negative); Glucose Urine UA Trace (Normal); Ketones Urine 1+ (Negative); Leukocyte Esterase Urine Negative (Negative); Nitrate Urine Negative (Negative); Protein Urine 1+ (Negative); Urine Appearance Cloudy (CLEAR); Urine Color Yellow (Yellow); pH Urine 7.5 (5-7)
[2024-06-10 19:43] LABS: Add Urine Microscopic? YES; Bacteria Urine EXCEEDS /hpf; Squamous Epithelial Cell Urine 0-5 /hpf (0-5); WBC Urine 0-5 /hpf (0-5)
[2024-06-10] MEDS: sodium chloride 0.9% 1,000 ML 999 ML IV (19:44)
[2024-06-10] MEDS: famotidine 20 mg/2 mL INJ 40 MG IVP (19:44)
[2024-06-10] MEDS: metoclopramide 5 mg/mL SDV 2 mL 10 MG IVP (19:44)
--- NOTE | 2024-06-10 20:08 | W.ED.NAVMDI ---
HPI - Nausea/Vomiting/Diarrhea General: Chief complaint: Nausea/Vomiting/Diarrhea Stated complaint: vomitting Time Seen by Provider: 06/10/24 19:30 History of Present Illness: Patient presents to the ER with continued nausea vomiting. Patient says she has not urinated today she has not been able to keep any fluid or food down for several days. She has not been able to take her medicine. She was seen here yesterday for the same thing had a workup was given fluids Zofran and discharged home feeling better but today she says she feels worse. Related Data Home Medications ?Medication ?Instructions ?Recorded ?Confirmed glimepiride 4 mg tablet 4 mg PO DAILY 06/09/24 06/09/24 multivitamin 1 tab PO QAM 06/09/24 06/09/24 sucralfate 1 gram tablet 1 g PO QID 06/09/24 06/09/24 Previous Rx's ?Medication ?Instructions ?Recorded ondansetron 4 mg disintegrating 4 mg PO Q6H PRN nausea and 06/09/24 tablet vomiting #14 tabs metoclopramide HCl 10 mg tablet 10 mg PO Q6H PRN nausea and 06/10/24 (Reglan) vomiting #14 tabs sucralfate 100 mg/mL oral 1 g (10 mL) PO Q6H #400 mL 06/10/24 suspension (Carafate) Allergies Allergy/AdvReac Type Severity Reaction Status Date / Time sumatriptan (From Imitrex) Allergy Severe Throat Verified 06/10/24 15:15 swells shut trazodone AdvReac Severe Psychosis Verified 06/10/24 15:15 doxycycline AdvReac Intermediate Rash Verified 06/10/24 15:15 verapamil AdvReac Intermediate Rash Verified 06/10/24 15:15 Review of Systems General: Reports: 10 or more systems reviewed and unremarkable except in HPI and below PFSH ED PFSH: Medical History Bipolar II disorder DM type 2 (diabetes mellitus, type 2) Surgical History History of laparoscopic appendectomy 07/16/23 Dr Bush Social History Smoking and tobacco/nicotine status: current every day tobacco/nicotine user cigarettes Packs smoked per day: 1 Years cigarettes smoked: 14 Quit status (tobacco/nicotine): has tried quititng Number of times tried to quit tobacco: 2 Second hand smoke exposure: Yes Substance/Drug Use: current Substance/Drug use frequency: daily Physical Exam Const: COMMON NORMALS: no acute distress, average body habitus, patient oriented x3, no limitations, healthy appearing, alert and well nourished HENMT: COMMON NORMALS: normocephalic, atraumatic, hearing grossly normal bilaterally, external ears normal and Normal external nose present HEAD & SCALP: normocephalic and atraumatic NOSE: Normal external nose present EXTERNAL EAR: Yes external ears normal Neck/C-Spine: COMMON NORMALS: full ROM, no lymphadenopathy, supple, no meningeal signs, no JVD and Thyroid normal THYROID: Thyroid normal Chest: COMMONS NORMALS: normal inspection of the chest and normal palpation of entire chest wall Resp: COMMON NORMALS: normal respiratory effort, No retractions, No use of accessory muscles and clear to auscultation bilaterally AUSCULTATION: clear to auscultation bilaterally Cardio: COMMON NORMALS: no JVD, regular rate, regular rhythm, S1 normal heart sound present, S2 normal heart sound present, No gallops present (Cardio), No clicks present (Cardio), No murmurs present (Cardio) and No rub (Cardio) RATE: regular rate RHYTHM: regular rhythm HEART SOUNDS: S1 normal heart sound present and S2 normal heart sound present GI: COMMON NORMALS: Normal to inspection, nondistended, normoactive bowel sounds present, Soft to palpation, non-tender, No hepatosplenomegaly present and no masses PALPATION: Yes Soft to palpation and Yes No hepatosplenomegaly present Neuro: COMMON NORMALS: patient oriented x3 SENSORIUM/ORIENTATION: Yes alert MENINGEAL SIGNS: Yes no meningeal signs Course Vital Signs: Vital signs: Vital Signs Temperature 98.4 F 06/10/24 15:07 Pulse Rate 59 L 06/10/24 22:00 Respiratory Rate 16 06/10/24 22:00 Blood Pressure 134/59 06/10/24 22:00 Pulse Oximetry 96 06/10/24 22:00 Oxygen Delivery Me thod Room Air 06/10/24 22:00 MDM - Nausea/Vomiting/Diarrhea Medical Decision Making Lab work was reviewed, lab work and imaging was reviewed from yesterday, patient was given Reglan Ativan and Zofran along with a liter bolus of normal saline. She said she feels better. Patient be discharged with Reglan. Medical Records I reviewed the patient's medical records. Lab Data I reviewed the patient's lab results. 06/10/24 17:17 06/10/24 17:17 Laboratory Results WBC 14.31 10^3/uL (3.29-11.43) H 06/10/24 17:17 RBC 5.46 10^6/uL (3.85-5.65) 06/10/24 17:17 Hgb 15.20 g/dL (11.27-16.99) 06/10/24 17:17 Hct 46.8 % (36-47) 06/10/24 17:17 MCV 85.7 fl (85-98) 06/10/24 17:17 MCH 27.8 pg (27-33) 06/10/24 17:17 MCHC 32.5 g/dL (30-55) 06/10/24 17:17 RDW 13.1 % (12.1-15.1) 06/10/24 17:17 Plt Count 192 10^3/cmm (157-399) 06/10/24 17:17 MPV 11.8 fL (7.4-10.4) H 06/10/24 17:17 Neut % (Auto) 63.8 % 06/10/24 17:17 Lymph % (Auto) 28.8 % 06/10/24 17:17 [place] % (Auto) 6.6 % 06/10/24 17:17 Eos % (Auto) 0.1 % 06/10/24 17:17 Baso % (Auto) 0.5 % 06/10/24 17:17 Neut # (Auto) 9.13 10^3/uL (1.8-7.7) H 06/10/24 17:17 Lymph # (Auto) 4.1 10^3/uL (0.8-4.8) 06/10/24 17:17 [place] # (Auto) 0.9 10^3/uL (0.2-0.9) 06/10/24 17:17 Eos # (Auto) 0.0 10^3/uL (0.0-0.8) 06/10/24 17:17 Baso # (Auto) 0.1 10^3/uL (0.0-0.1) 06/10/24 17:17 Nucleated RBC % (auto) 0 % 06/10/24 17:17 Nucleated RBCs # 0.0 /100WBC 06/10/24 17:17 Sodium 136 mmol/L (136-145) 06/10/24 17:17 Potassium 3.7 mmol/L (3.5-5.1) 06/10/24 17:17 Chloride 96 mmol/L (98-107) L 06/10/24 17:17 Carbon Dioxide 31 mmol/L (22-29) H 06/10/24 17:17 Anion Gap 12.7 (5-19) 06/10/24 17:17 BUN 8 mg/dL (6-20) 06/10/24 17:17 Creatinine 0.5 mg/dL (0.5-0.9) 06/10/24 17:17 GFR Calculation 138.8 mL/min (90-130) H 06/10/24 17:17 Glucose 215 mg/dL (65-115) H 06/10/24 17:17 Calculated Osmolality 287 mOsm/kg (285-295) 06/10/24 17:17 Calcium 9.3 mg/dL (8.5-10.5) 06/10/24 17:17 Total Bilirubin 0.4 mg/dL (0.15-1.2) 06/10/24 17:17 AST 8 U/L (0-32) 06/10/24 17:17 ALT 13 U/L (0-33) 06/10/24 17:17 Alkaline Phosphatase 69 U/L (35-105) 06/10/24 17:17 Total Protein 7.3 g/dL (6.6-8.7) 06/10/24 17:17 Albumin 4.3 g/dL (3.5-5.2) 06/10/24 17:17 Globulin 3.0 g/dL (1.3-4.6) 06/10/24 17:17 Lipase 44 U/L (13-60) 06/10/24 17:17 HCG, Qual Negative (Negative) 06/10/24 17:17 Urine Color Yellow (Yellow) 06/10/24 19:32 Urine Appearance Cloudy (CLEAR) A 06/10/24 19:32 Urine pH 7.5 (5-7) 06/10/24 19:32 Ur Specific [place] 1.020 (1.005-1.030) 06/10/24 19:32 Urine Protein 1+ (Negative) A 06/10/24 19:32 Urine Glucose (UA) Trace (Normal) H 06/10/24 19:32 Urine Ketones 1+ (Negative) H 06/10/24 19:32 Urine Blood Negative (Negative) 06/10/24 19:32 Urine Nitrate Negative (Negative) 06/10/24 19:32 Urine Bilirubin Negative (Negative) 06/10/24 19:32 Urine Urobilinogen 1.0 mg/dL (Negative) 06/10/24 19:32 Ur Leukocyte Esterase Negative (Negative) 06/10/24 19:32 Urine RBC 3-5 /hpf (0-2) 06/10/24 19:32 Urine WBC 0-5 /hpf (0-5) 06/10/24 19:32 Ur Squamous Epith Cells 0-5 /hpf (0-5) 06/10/24 19:32 Amorphous Sediment Not Reportable 06/10/24 19:32 Urine Bacteria Exceeds /hpf (NONE) 06/10/24 19:32 Hyaline Casts 0.40 /lpf 06/10/24 19:32 No radiology studies performed this visit Discharge Plan Discharge Patient Disposition: Home Clinical Impression: Nausea & vomiting Qualifiers: Vomiting type: unspecified Qualified Code(s): R11.2 - Nausea with vomiting, unspecified Condition: Stable Prescriptions: New metoclopramide HCl [Reglan] 10 mg tablet 10 mg PO Q6H PRN (Reason: nausea and vomiting) Qty: 14 0RF sucralfate [Carafate] 100 mg/mL suspension 1 g PO Q6H Qty: 400 0RF No Action sucralfate 1 gram tablet 1 g PO QID glimepiride 4 mg tablet 4 mg PO DAILY multivitamin Tablet 1 tab PO QAM ondansetron 4 mg tablet,disintegrating 4 mg PO Q6H PRN (Reason: nausea and vomiting) Qty: 14 0RF Discharge Orders: Discharge ED (Routine); Ordered 06/10/24 Ordered By: José Sullivan Referrals: Marcella Jackson NP [Primary Care Provider] - 1 week Patient Instructions: Acute Nausea and Vomiting (ED) Activity Restrictions/Additional Instructions: You have been given Reglan, Zofran and lorazepam in the ER along with a liter of normal saline. You have been prescribed Zofran and it has been sent to your pharmacy. Please pick it up and take it as directed as needed for nausea vomiting. It is safe to take with the Zofran if needed. Please follow-up with your family practice physician within the next 7 days for further evaluation treatment. Print Language: Uzbek Coding Level of Care Code ED [employer] Engineering Technician for Pari Oliver
[2024-06-10 21:43] VITALS: BP 165/87; PULSE 67; RESP 16; O2SAT 98
[2024-06-10 22:00] VITALS: BP 134/59; PULSE 59; RESP 16; O2SAT 96
[2024-06-10] MEDS: LORazepam 2 mg/mL INJ 1 mL 1 MG IVP (22:07)
[2024-06-10] MEDS: ondansetron 2 mg/ML SDV 2 mL 4 MG IVP (22:07)
[2024-06-10 23:00] VITALS: BP 162/77; PULSE 62; RESP 16; O2SAT 98
== END 2024-06-10 22:58 | disposition home or self-care (01) ==
PROVIDERS: Physician Assistant; Emergency Provider Emergency Medicine; PCP Nurse Practitioner Family
DX: R11.2 Nausea with vomiting, unspecified (principal); E11.9 Type 2 diabetes mellitus without complications
CPT/HCPCS: 36415; 80053; 81001; 83690; 84703; 85025; 96361; 96374; 96375; 99284; J2060; J2405; J2765; J3490; J7030

== ENCOUNTER 2024-06-12 01:02 | Emergency (ER) | payer MEDICARE, SELFPAY ==
[2024-06-12] VITALS (16 sets, daily range): BP systolic 117–179; BP diastolic 70–117; PULSE 57–69; RESP 16; TEMP 36.8; O2SAT 96–99; BMI 41.3
[2024-06-12 02:54] LABS: Basophils # 0.1 10^3/uL (0.0-0.1); Basophils % 0.3 %; Eosinophils # 0.1 10^3/uL (0.0-0.8); Eosinophils % 0.3 %; Hematocrit 49.8 % (36-47); Lymphocytes # 4.1 10^3/uL (0.8-4.8); Lymphocytes % 22.1 %; Mean Corpuscular HGB Conc 32.3 g/dL (30-55); Mean Corpuscular Volume 86.5 fl (85-98); Mean Platelet Volume 11.4 fL (7.4-10.4); Monocytes # 1.1 10^3/uL (0.2-0.9); Monocytes % 6.2 %; Neutrophils # 12.97 10^3/uL (1.8-7.7); Neutrophils % 70.7 %; Nucleated Red Blood Cells % 0 %; Platelet Count 159 10^3/cmm (157-399); Red Blood Count 5.76 10^6/uL (3.85-5.65); Red Cell Distribution Width 12.8 % (12.1-15.1); White Blood Count 18.34 10^3/uL (3.29-11.43)
[2024-06-12 03:13] LABS: Alanine Aminotransferase 17 U/L (0-33); Albumin Level 4.4 g/dL (3.5-5.2); Alkaline Phosphatase 73 U/L (35-105); Anion Gap 16.4 (5-19); Aspartate Amino Transferase 13 U/L (0-32); Blood Urea Nitrogen 8 mg/dL (6-20); Calcium 9.3 mg/dL (8.5-10.5); Carbon Dioxide 28 mmol/L (22-29); Chloride 95 mmol/L (98-107); Creatinine Clr Calc Pharmacy 157.2467; Globulin 3.5 g/dL (1.3-4.6); Glomerular Filtration Rate 94.2 mL/min (90-130); Glucose 270 mg/dL (65-115); Lipase 60 U/L (13-60); Osmolality Calculated 290 mOsm/kg (285-295); Potassium 3.4 mmol/L (3.5-5.1); Sodium 136 mmol/L (136-145); Total Bilirubin 0.6 mg/dL (0.15-1.2); Total Protein 7.9 g/dL (6.6-8.7)
[2024-06-12 06:41] LABS: HCG, Serum Qual Negative (Negative)
[2024-06-12] MEDS: ondansetron 2 mg/ML SDV 2 mL 4 MG IVP (06:55)
[2024-06-12] MEDS: famotidine 20 mg/2 mL INJ 40 MG IVP (06:56)
[2024-06-12] MEDS: sodium chloride 0.9% 1,000 ML 999 ML IV (06:57)
[2024-06-12] MEDS: OLANZapine 5 mg ODT PO (07:56)
--- NOTE | 2024-06-12 08:11 | W.ED.NAVMDI ---
HPI - Nausea/Vomiting/Diarrhea General: Chief complaint: Nausea/Vomiting/Diarrhea Stated complaint: N/V DIZZY abd pain Time Seen by Provider: 06/12/24 06:03 History of Present Illness: This patient is a 38-year-old presenting with vomiting and diffuse abdominal pain. She reports the symptoms have been ongoing for the last 3 days. This is her third ED visit for the same complaint. On the first visit she was given fluids and medication and had a CT scan. That was unremarkable other than some fluid in the colon. She had recurrent symptoms and returned last night. She was again given fluids and sent home with Regnanci. She reports that when she got home and tried to eat or drink anything the symptoms returned so she has come back for third visit. She has had 1 prior episode like this in the spring of last year. She was told at that time that it was hyperemesis related to marijuana use. She was a daily smoker at that time but has since stopped. She did use about a week ago but says she only smoked about half of a blunt . She also is concerned because 2 weeks after the first episode of this she ended up having to have her appendix out and wondered if it was related to that rather than the marijuana. She has not had any abdominal surgeries other than her appendix. She does have a history of bone cancer in her left leg. 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 She says her last scan looking for spread was about 5 years ago. She denies any new symptoms related to the knee surgery but does say that she has been told it needs to be redone. She also has a history of diabetes and is on glimepiride. She has not been taking that because of her vomiting. She is also on sucralfate and has been taking that. She has tried various [id number] remedies with no relief. The only relief she gets is from getting into a hot shower. Related Data Home Medications ?Medication ?Instructions ?Recorded ?Confirmed glimepiride 4 mg tablet 4 mg PO DAILY 06/09/24 06/12/24 multivitamin 1 tab PO QAM 06/09/24 06/12/24 sucralfate 1 gram tablet 1 g PO QID 06/09/24 06/12/24 omeprazole 20 mg capsule,delayed 20 mg PO DAILY 06/12/24 06/12/24 release Previous Rx's ?Medication ?Instructions ?Recorded ondansetron 4 mg disintegrating 4 mg PO Q6H PRN nausea and 06/09/24 tablet vomiting #14 tabs metoclopramide HCl 10 mg tablet 10 mg PO Q6H PRN nausea and 06/10/24 (Reglan) vomiting #14 tabs sucralfate 100 mg/mL oral 1 g (10 mL) PO Q6H #400 mL 06/10/24 suspension (Carafate) olanzapine 5 mg disintegrating 5 mg PO BID PRN vomiting 4 days #7 06/12/24 tablet (Zyprexa Zydis) tabs Allergies Allergy/AdvReac Type Severity Reaction Status Date / Time sumatriptan (From Imitrex) Allergy Severe Throat Verified 06/10/24 15:15 swells shut trazodone AdvReac Severe Psychosis Verified 06/10/24 15:15 doxycycline AdvReac Intermediate Rash Verified 06/10/24 15:15 verapamil AdvReac Intermediate Rash Verified 06/10/24 15:15 [facility] ED PFSH: Medical History Bipolar II disorder DM type 2 (diabetes mellitus, type 2) Surgical History History of laparoscopic appendectomy 07/16/23 Dr Bush Social History Smoking and tobacco/nicotine status: current every day tobacco/nicotine user cigarettes Packs smoked per day: 1 Years cigarettes smoked: 14 Quit status (tobacco/nicotine): has tried quititng Number of times tried to quit tobacco: 2 Second hand smoke exposure: Yes Substance/Drug Use: current Substance/Drug use frequency: daily Physical Exam Const: COMMON NORMALS: no acute distress, patient oriented x3, no limitations and alert GENERAL APPEARANCE: cooperative and comfortable NUTRITIONAL APPEARANCE: obese morbidly obese HENMT: HEAD & SCALP: normal to inspection FACE & SINUS: normal facial exam Eye: GENERAL EYE: appearance normal, both eyes and all related structures Neck/C-Spine: COMMON NORMALS: supple, no meningeal signs and no JVD Chest: COMMONS NORMALS: normal inspection of the chest Resp: COMMON NORMALS: normal respiratory effort, No use of accessory muscles and clear to auscultation bilaterally AUSCULTATION: clear to auscultation bilaterally Cardio: COMMON NORMALS: no JVD, regular rate, regular rhythm and No murmurs present (Cardio) RATE: regular rate RHYTHM: regular rhythm GI: COMMON NORMALS: Soft to palpation INSPECTION: Yes normal to inspection AUSCULTATION: Yes normoactive bowel sounds PALPATION: Yes Soft to palpation, Yes Tenderness to palpation present (GI) (Bilateral upper quadrants), No Guarding due to palpation present (GI), No Rigid due to palpation and No Rebound tenderness present Back/Pelvis: COMMON NORMALS: thoracic and lumbar spine normal to inspection Extremity: COMMON NORMALS: normal to inspection Neuro: COMMON NORMALS: patient oriented x3, moves all extremities, no focal motor deficits and no sensory deficits noted SENSORIUM/ORIENTATION: Yes alert MENINGEAL SIGNS: Yes no meningeal signs Psych: COMMON NORMALS: mental status grossly normal, cooperative and normal affect Skin: COMMON NORMALS: no rashes or lesions noted and turgor normal GENERAL SKIN EXAM: no rashes or lesions noted and turgor normal Course Vital Signs: Vital signs: Vital Signs Temperature 98.2 F 06/12/24 01:13 Pulse Rate 63 06/12/24 09:44 Respiratory Rate 16 06/12/24 01:13 Blood Pressure 146/83 06/12/24 09:44 Pulse Oximetry 96 06/12/24 09:44 Oxygen Delivery Me thod Room Air 06/12/24 01:13 MDM - Nausea/Vomiting/Diarrhea Medical Decision Making Patient did not seem to be having any vomiting in the ED. She was given 2 L of fluid. She was able to provide a urine specimen. Labs reflect an elevated white blood cell count which I believe is more of a stress reaction than infection. As she had a CT 2 days ago I do not think is necessary to repeat that. Additionally her abdominal exam is reassuring that there is not a surgical abdomen. She does not appear to be severely dehydrated. Fluids hopefully will help with her symptoms. If she is able to tolerate p.o. I plan to send her home possibly with Zydus to help control ongoing symptoms. She does have a appointment to see a GI specialist at [facility] upcoming. Lab Data 06/12/24 02:48 06/12/24 02:48 Laboratory Results WBC 18.34 10^3/uL (3.29-11.43) H 06/12/24 02:48 RBC 5.76 10^6/uL (3.85-5.65) H 06/12/24 02:48 Hgb 16.10 g/dL (11.27-16.99) 06/12/24 02:48 Hct 49.8 % (36-47) H 06/12/24 02:48 MCV 86.5 fl (85-98) 06/12/24 02:48 MCH 28.0 pg (27-33) 06/12/24 02:48 MCHC 32.3 g/dL (30-55) 06/12/24 02:48 RDW 12.8 % (12.1-15.1) 06/12/24 02:48 Plt Count 159 10^3/cmm (157-399) 06/12/24 02:48 MPV 11.4 fL (7.4-10.4) H 06/12/24 02:48 Neut % (Auto) 70.7 % 06/12/24 02:48 Lymph % (Auto) 22.1 % 06/12/24 02:48 [place] % (Auto) 6.2 % 06/12/24 02:48 Eos % (Auto) 0.3 % 06/12/24 02:48 Baso % (Auto) 0.3 % 06/12/24 02:48 Neut # (Auto) 12.97 10^3/uL (1.8-7.7) H 06/12/24 02:48 Lymph # (Auto) 4.1 10^3/uL (0.8-4.8) 06/12/24 02:48 [place] # (Auto) 1.1 10^3/uL (0.2-0.9) H 06/12/24 02:48 Eos # (Auto) 0.1 10^3/uL (0.0-0.8) 06/12/24 02:48 Baso # (Auto) 0.1 10^3/uL (0.0-0.1) 06/12/24 02:48 Nucleated RBC % (auto) 0 % 06/12/24 02:48 Nucleated RBCs # 0.0 /100WBC 06/12/24 02:48 Sodium 136 mmol/L (136-145) 06/12/24 02:48 Potassium 3.4 mmol/L (3.5-5.1) L 06/12/24 02:48 Chloride 95 mmol/L (98-107) L 06/12/24 02:48 Carbon Dioxide 28 mmol/L (22-29) 06/12/24 02:48 Anion Gap 16.4 (5-19) 06/12/24 02:48 BUN 8 mg/dL (6-20) 06/12/24 02:48 Creatinine 0.7 mg/dL (0.5-0.9) 06/12/24 02:48 GFR Calculation 94.2 mL/min (90-130) 06/12/24 02:48 Glucose 270 mg/dL (65-115) H 06/12/24 02:48 Calculated Osmolality 290 mOsm/kg (285-295) 06/12/24 02:48 Calcium 9.3 mg/dL (8.5-10.5) 06/12/24 02:48 Total Bilirubin 0.6 mg/dL (0.15-1.2) 06/12/24 02:48 AST 13 U/L (0-32) 06/12/24 02:48 ALT 17 U/L (0-33) 06/12/24 02:48 Alkaline Phosphatase 73 U/L (35-105) 06/12/24 02:48 Total Protein 7.9 g/dL (6.6-8.7) 06/12/24 02:48 Albumin 4.4 g/dL (3.5-5.2) 06/12/24 02:48 Globulin 3.5 g/dL (1.3-4.6) 06/12/24 02:48 Lipase 60 U/L (13-60) 06/12/24 02:48 HCG, Qual Negative (Negative) 06/12/24 02:48 Urine Color Yellow (Yellow) 06/12/24 08:29 Urine Appearance Clear (CLEAR) 06/12/24 08:29 Urine pH 7.0 (5-7) 06/12/24 08:29 Ur Specific [place] 1.022 (1.005-1.030) 06/12/24 08:29 Urine Protein 1+ (Negative) A 06/12/24 08:29 Urine Glucose (UA) Trace (Normal) H 06/12/24 08:29 Urine Ketones 2+ (Negative) H 06/12/24 08:29 Urine Blood Negative (Negative) 06/12/24 08:29 Urine Nitrate Negative (Negative) 06/12/24 08:29 Urine Bilirubin Negative (Negative) 06/12/24 08:29 Urine Urobilinogen 1.0 mg/dL (Negative) 06/12/24 08:29 Ur Leukocyte Esterase Negative (Negative) 06/12/24 08:29 Urine RBC 3-5 /hpf (0-2) 06/12/24 08:29 Urine WBC 6-10 /hpf (0-5) 06/12/24 08:29 Ur Squamous Epith Cells 11-20 /hpf (0-5) H 06/12/24 08:29 Amorphous Sediment Not Reportable 06/12/24 08:29 Urine Bacteria 4+ /hpf (NONE) H 06/12/24 08:29 Hyaline Casts 2.05 /lpf 06/12/24 08:29 All radiology interpretation(s) finalized by discharge Discharge Plan Discharge Patient Disposition: Home Clinical Impression: Dehydration, Vomiting Condition: Stable Prescriptions: New olanzapine [Zyprexa Zydis] 5 mg tablet,disintegrating 5 mg PO BID PRN (Reason: vomiting) 4 Days Qty: 7 0RF No Action metoclopramide HCl [Reglan] 10 mg tablet 10 mg PO Q6H PRN (Reason: nausea and vomiting) Qty: 14 0RF sucralfate [Carafate] 100 mg/mL suspension 1 g PO Q6H Qty: 400 0RF omeprazole 20 mg capsule,delayed release(DR/EC) 20 mg PO DAILY sucralfate 1 gram tablet 1 g PO QID glimepiride 4 mg tablet 4 mg PO DAILY multivitamin Tablet 1 tab PO QAM ondansetron 4 mg tablet,disintegrating 4 mg PO Q6H PRN (Reason: nausea and vomiting) Qty: 14 0RF Discharge Orders: Discharge ED (Routine); Ordered 06/12/24 Ordered By: Kate Mars Referrals: Marcella Jackson NP [Primary Care Provider] - Discharge Diet: Clear Liquid Discharge Activity: Increase activity as tolerated Patient Instructions: Opioid Safety, Pain Management Activity Restrictions/Additional Instructions: Take a clear liquid diet, only sips at a time, until you are feeling better. Try taking the olanzapine disintegrating tablets for ongoing nausea and vomiting. Do not take them with the Reglan tablets. Print Language: [place] African Coding Level of Care Code ED Dispatcher Chief [employer] Slurry for Pari Oliver
[2024-06-12 08:56] LABS: Add Urine Microscopic? YES; Bacteria Urine 4+ /hpf; Bilirubin Urine Negative (Negative); Blood Urine Negative (Negative); Glucose Urine UA Trace (Normal); Hyaline Casts Urine 2.05 /lpf; Ketones Urine 2+ (Negative); Leukocyte Esterase Urine Negative (Negative); Nitrate Urine Negative (Negative); Protein Urine 1+ (Negative); Specific Gravity, Urine 1.022 (1.005-1.030); Urine Appearance Clear (CLEAR); Urine Color Yellow (Yellow)
[2024-06-12 09:08] LABS: UA Slide Review UA Slide Review Perf
== END 2024-06-12 09:45 | disposition home or self-care (01) ==
PROVIDERS: Emergency Medicine; Emergency Provider Emergency Medicine; PCP Nurse Practitioner Family
DX: E86.0 Dehydration (principal); R11.10 Vomiting, unspecified; F17.210 Nicotine dependence, cigarettes, uncomplicated; E11.9 Type 2 diabetes mellitus without complications
CPT/HCPCS: 80053; 81001; 83690; 84703; 85025; 96361; 96374; 96375; 99284; J2405; J3490; J7030